=== PATIENT | female | born 1935 | race Caucasian/White ===

== ENCOUNTER → 2017-05-13 11:28 | Outpatient (CLI) | payer MEDICARE, OTHER, SELFPAY ==
[2016-10-02 08:11] VITALS: BMI 32.3
[2016-10-02 09:28] VITALS: BP 158/74
[2017-05-13 13:20] LABS: Absolute Neutrophil Count 1.3 X10^3/uL (2.0-7.7); Basophil# 0.03 X10^3/uL; Basophil% 1.3 % (0-1); Eosinophil# 0.01 X10^3/uL; Eosinophils% 0.4 % (0-5); Hematocrit 41.9 % (37-47); Hemoglobin 14.1 g/dl (12.0-15.0); Mean Corp Hgb Conc 33.7 g/gl (32-36); Mean Corpuscular Hgb 32.3 pg (27.0-32.0); Mean Corpuscular Volume 95.9 fL (81-99); Mean Platelet Vol. 9.4 fl (6.2-12.0); Monocyte% 20.8 % (0-10); Neutrophil # 1.26 X10^3/uL (2.7-7.7); Neutrophil % 52.5 % (47-70); Platelet Count 206 K/mm3 (150-450); RBC Distribution Width CV 14.1 % (11.6-14.6); RBC Distribution Width SD 47.1 fl (35.1-43.9); Red Blood Count 4.37 M/mm3 (4.2-5.4); White Blood Count 2.4 K/mm3 (4.4-11.0)
[2017-05-13 13:21] LABS: Differential Indicated SCAN CRITERIA MET; POSITIVE COUNT NO; POSITIVE DIFFERENTIAL YES; POSITIVE MORPHOLOGY NO
[2017-05-13 13:33] LABS: ALB/GLOB Ratio 0.9 RATIO (0.9-2.4); AST(SGOT) 27 U/L (15-37); Alanine Aminotransfer ALT/SGPT 36 U/L (13-56); Albumin, Serum 3.4 g/dL (3.2-5.0); Alkaline Phosphatase 82 U/L (45-117); Anion Gap 6 (5-15); BUN 11 mg/dL (7-18); BUN/Creat Ratio 15.6 RATIO (10-20); Calcium,Total 8.2 mg/dL (8.5-10.1); Chloride 95 mmol/L (98-107); EST Glomerular Filtration Rate 85 mL/min (>60); Est Glom Filt Rate - Afr Amer 102 mL/min (>60); Globulin 3.7 g/dL (2.2-4.2); Glucose 128 mg/dL (74-106); Potassium 3.8 mmol/L (3.5-5.1); Protein, Total 7.1 g/dL (6.4-8.2); Sodium Level 132 mmol/L (136-145)
[2017-05-14 14:50] LABS: Pathologist Review Reviewed
== END ==
PROVIDERS: Family Provider Family Medicine; PCP Family Medicine; Visit Provider Internal Medicine Rheumatology
DX: M06.4 Inflammatory polyarthropathy (principal); Z79.899 Other long term (current) drug therapy; M79.7 Fibromyalgia; M15.9 Polyosteoarthritis, unspecified; M17.0 Bilateral primary osteoarthritis of knee; M16.0 Bilateral primary osteoarthritis of hip; I10 Essential (primary) hypertension; E78.5 Hyperlipidemia, unspecified
CPT/HCPCS: 36415; 80053; 85025

== ENCOUNTER → 2017-06-13 11:02 | Outpatient (CLI) | payer MEDICARE, OTHER, SELFPAY ==
[2017-06-13 12:06] LABS: Absolute Lymphocyte Count 1.38 X10^3/ul (0.83-4.51); Absolute Neutrophil Count 2.5 X10^3/uL (2.0-7.7); Basophil# 0.03 X10^3/uL; Basophil% 0.7 % (0-1); Eosinophils% 2.2 % (0-5); Hematocrit 43.1 % (37-47); Hemoglobin 14.2 g/dl (12.0-15.0); Lymphocyte # 1.38 X10^3/ul (4.0); Lymphocyte % 30.3 % (19-41); Mean Corp Hgb Conc 32.9 g/gl (32-36); Mean Corpuscular Hgb 31.7 pg (27.0-32.0); Mean Corpuscular Volume 96.2 fL (81-99); Mean Platelet Vol. 9.3 fl (6.2-12.0); Neutrophil # 2.54 X10^3/uL (2.7-7.7); Neutrophil % 55.8 % (47-70); Platelet Count 257 K/mm3 (150-450); RBC Distribution Width CV 13.7 % (11.6-14.6); RBC Distribution Width SD 47.7 fl (35.1-43.9); Red Blood Count 4.48 M/mm3 (4.2-5.4); White Blood Count 4.6 K/mm3 (4.4-11.0)
[2017-06-13 12:07] LABS: POSITIVE COUNT NO; POSITIVE DIFFERENTIAL NO; POSITIVE MORPHOLOGY NO
== END ==
PROVIDERS: Family Provider Family Medicine; PCP Family Medicine; Visit Provider Family Medicine
DX: D72.819 Decreased white blood cell count, unspecified (principal); M06.4 Inflammatory polyarthropathy; Z79.899 Other long term (current) drug therapy; M79.7 Fibromyalgia; M15.9 Polyosteoarthritis, unspecified; M17.0 Bilateral primary osteoarthritis of knee; M16.0 Bilateral primary osteoarthritis of hip; I10 Essential (primary) hypertension; E78.5 Hyperlipidemia, unspecified
CPT/HCPCS: 36415; 85025

== ENCOUNTER → 2017-08-14 12:51 | Outpatient (CLI) | payer MEDICARE, OTHER, SELFPAY ==
[2017-08-14 14:14] LABS: Absolute Lymphocyte Count 1.71 X10^3/ul (0.83-4.51); Absolute Neutrophil Count 4.1 X10^3/uL (2.0-7.7); Basophil# 0.05 X10^3/uL; Basophil% 0.8 % (0-1); Eosinophil# 0.09 X10^3/uL; Eosinophils% 1.4 % (0-5); Hematocrit 41.2 % (37-47); Lymphocyte # 1.71 X10^3/ul (4.0); Lymphocyte % 25.8 % (19-41); Mean Corpuscular Volume 94.3 fL (81-99); Mean Platelet Vol. 9.3 fl (6.2-12.0); Monocyte# 0.69 X10^3/uL; Monocyte% 10.4 % (0-10); Neutrophil # 4.07 X10^3/uL (2.7-7.7); Neutrophil % 61.4 % (47-70); Platelet Count 262 K/mm3 (150-450); RBC Distribution Width CV 13.9 % (11.6-14.6); RBC Distribution Width SD 45.3 fl (35.1-43.9); Red Blood Count 4.37 M/mm3 (4.2-5.4); White Blood Count 6.6 K/mm3 (4.4-11.0)
[2017-08-14 14:21] LABS: POSITIVE COUNT NO; POSITIVE DIFFERENTIAL NO; POSITIVE MORPHOLOGY NO
[2017-08-14 14:24] LABS: AST(SGOT) 21 U/L (15-37); Alanine Aminotransfer ALT/SGPT 36 U/L (13-56); Albumin, Serum 3.4 g/dL (3.2-5.0); Alkaline Phosphatase 80 U/L (45-117); Anion Gap 7 (5-15); BUN 18 mg/dL (7-18); BUN/Creat Ratio 25.5 RATIO (10-20); Chloride 101 mmol/L (98-107); EST Glomerular Filtration Rate 84 mL/min (>60); Est Glom Filt Rate - Afr Amer 102 mL/min (>60); Globulin 3.5 g/dL (2.2-4.2); Glucose 125 mg/dL (74-106); Potassium 4.4 mmol/L (3.5-5.1); Protein, Total 6.9 g/dL (6.4-8.2); Sodium Level 137 mmol/L (136-145)
== END ==
PROVIDERS: Family Provider Family Medicine; PCP Family Medicine; Visit Provider Internal Medicine Rheumatology
DX: M06.4 Inflammatory polyarthropathy (principal); Z79.899 Other long term (current) drug therapy; M79.7 Fibromyalgia; M15.9 Polyosteoarthritis, unspecified; M17.0 Bilateral primary osteoarthritis of knee; M16.0 Bilateral primary osteoarthritis of hip; I10 Essential (primary) hypertension; E78.5 Hyperlipidemia, unspecified
CPT/HCPCS: 36415; 80053; 85025

== ENCOUNTER → 2017-10-29 13:40 | Outpatient (CLI) | payer MEDICARE, OTHER, SELFPAY ==
[2017-10-29 15:21] LABS: Absolute Lymphocyte Count 1.44 X10^3/ul (0.83-4.51); Basophil# 0.04 X10^3/uL; Basophil% 0.8 % (0-1); Eosinophil# 0.05 X10^3/uL; Hematocrit 41.9 % (37-47); Hemoglobin 14.6 g/dl (12.0-15.0); Lymphocyte # 1.44 X10^3/ul (4.0); Mean Corp Hgb Conc 34.8 g/gl (32-36); Mean Corpuscular Hgb 33.5 pg (27.0-32.0); Mean Corpuscular Volume 96.1 fL (81-99); Mean Platelet Vol. 9.2 fl (6.2-12.0); Monocyte# 0.66 X10^3/uL; Monocyte% 12.8 % (0-10); Neutrophil # 2.95 X10^3/uL (2.7-7.7); Neutrophil % 57.4 % (47-70); POSITIVE COUNT NO; POSITIVE DIFFERENTIAL NO; POSITIVE MORPHOLOGY NO; Platelet Count 282 K/mm3 (150-450); RBC Distribution Width CV 13.4 % (11.6-14.6); RBC Distribution Width SD 45.7 fl (35.1-43.9); Red Blood Count 4.36 M/mm3 (4.2-5.4); White Blood Count 5.1 K/mm3 (4.4-11.0)
[2017-10-29 15:43] LABS: ALB/GLOB Ratio 0.9 RATIO (0.9-2.4); AST(SGOT) 31 U/L (15-37); Alanine Aminotransfer ALT/SGPT 38 U/L (13-56); Albumin, Serum 3.5 g/dL (3.2-5.0); Alkaline Phosphatase 72 U/L (45-117); Anion Gap 8 (5-15); BUN 10 mg/dL (7-18); BUN/Creat Ratio 12.9 RATIO (10-20); Calcium,Total 9.1 mg/dL (8.5-10.1); Chloride 97 mmol/L (98-107); Creatinine, Serum 0.77 mg/dL (0.55-1.02); EST Glomerular Filtration Rate 76 mL/min (>60); Est Glom Filt Rate - Afr Amer 92 mL/min (>60); Globulin 3.7 g/dL (2.2-4.2); Glucose 87 mg/dL (74-106); Potassium 4.6 mmol/L (3.5-5.1); Protein, Total 7.2 g/dL (6.4-8.2); Sodium Level 134 mmol/L (136-145)
== END ==
PROVIDERS: Family Provider Family Medicine; PCP Family Medicine; Visit Provider Internal Medicine Rheumatology
DX: M06.4 Inflammatory polyarthropathy (principal); Z79.899 Other long term (current) drug therapy; M79.7 Fibromyalgia; M15.9 Polyosteoarthritis, unspecified; M17.0 Bilateral primary osteoarthritis of knee; M16.0 Bilateral primary osteoarthritis of hip; I10 Essential (primary) hypertension; E78.5 Hyperlipidemia, unspecified
CPT/HCPCS: 36415; 80053; 85025

== ENCOUNTER → 2018-01-21 13:42 | Outpatient (CLI) | payer MEDICARE, OTHER, SELFPAY ==
[2018-01-21 15:31] LABS: Absolute Lymphocyte Count 1.47 X10^3/ul (0.83-4.51); Absolute Neutrophil Count 2.4 X10^3/uL (2.0-7.7); Basophil# 0.04 X10^3/uL; Basophil% 0.8 % (0-1); Eosinophil# 0.08 X10^3/uL; Eosinophils% 1.7 % (0-5); Hematocrit 42.2 % (37-47); Hemoglobin 14.8 g/dl (12.0-15.0); Lymphocyte # 1.47 X10^3/ul (4.0); Lymphocyte % 30.8 % (19-41); Mean Corp Hgb Conc 35.1 g/gl (32-36); Mean Corpuscular Hgb 33.6 pg (27.0-32.0); Mean Corpuscular Volume 95.9 fL (81-99); Mean Platelet Vol. 9.2 fl (6.2-12.0); Monocyte% 16.7 % (0-10); Neutrophil # 2.38 X10^3/uL (2.7-7.7); Neutrophil % 49.8 % (47-70); Platelet Count 273 K/mm3 (150-450); RBC Distribution Width CV 13.2 % (11.6-14.6); RBC Distribution Width SD 44.6 fl (35.1-43.9); White Blood Count 4.8 K/mm3 (4.4-11.0)
[2018-01-21 15:32] LABS: POSITIVE COUNT NO; POSITIVE DIFFERENTIAL NO; POSITIVE MORPHOLOGY NO
[2018-01-21 15:40] LABS: ALB/GLOB Ratio 0.9 RATIO (0.9-2.4); AST(SGOT) 27 U/L (15-37); Alanine Aminotransfer ALT/SGPT 41 U/L (13-56); Albumin, Serum 3.6 g/dL (3.2-5.0); Alkaline Phosphatase 75 U/L (45-117); Anion Gap 9 (5-15); BUN 12 mg/dL (7-18); Calcium,Total 9.2 mg/dL (8.5-10.1); Chloride 97 mmol/L (98-107); Creatinine, Serum 0.71 mg/dL (0.55-1.02); EST Glomerular Filtration Rate 84 mL/min (>60); Est Glom Filt Rate - Afr Amer 102 mL/min (>60); Globulin 3.8 g/dL (2.2-4.2); Glucose 73 mg/dL (74-106); Potassium 4.6 mmol/L (3.5-5.1); Protein, Total 7.4 g/dL (6.4-8.2); Sodium Level 133 mmol/L (136-145)
== END ==
PROVIDERS: Family Provider Family Medicine; PCP Family Medicine; Referring Provider Internal Medicine Rheumatology; Visit Provider Internal Medicine Rheumatology
DX: M06.4 Inflammatory polyarthropathy (principal); Z79.899 Other long term (current) drug therapy; M79.7 Fibromyalgia; M15.9 Polyosteoarthritis, unspecified; M17.0 Bilateral primary osteoarthritis of knee; M16.0 Bilateral primary osteoarthritis of hip; I10 Essential (primary) hypertension; E78.5 Hyperlipidemia, unspecified
CPT/HCPCS: 36415; 80053; 85025

== ENCOUNTER → 2018-03-06 09:52 | Outpatient (CLI) | payer MEDICARE, OTHER, SELFPAY ==
[2018-03-06 12:37] LABS: Absolute Lymphocyte Count 1.13 X10^3/ul (0.83-4.51); Basophil# 0.06 X10^3/uL; Basophil% 1.6 % (0-1); Eosinophil# 0.07 X10^3/uL; Eosinophils% 1.9 % (0-5); Hematocrit 41.6 % (37-47); Hemoglobin 13.9 g/dl (12.0-15.0); Lymphocyte # 1.13 X10^3/ul (4.0); Lymphocyte % 30.1 % (19-41); Mean Corp Hgb Conc 33.4 g/gl (32-36); Mean Corpuscular Hgb 32.9 pg (27.0-32.0); Mean Corpuscular Volume 98.6 fL (81-99); Mean Platelet Vol. 9.3 fl (6.2-12.0); Monocyte% 13.3 % (0-10); Neutrophil % 53.1 % (47-70); Platelet Count 258 K/mm3 (150-450); RBC Distribution Width CV 13.6 % (11.6-14.6); RBC Distribution Width SD 47.8 fl (35.1-43.9); Red Blood Count 4.22 M/mm3 (4.2-5.4); White Blood Count 3.8 K/mm3 (4.4-11.0)
[2018-03-06 12:38] LABS: POSITIVE COUNT NO; POSITIVE DIFFERENTIAL NO; POSITIVE MORPHOLOGY NO
[2018-03-06 13:18] LABS: AST(SGOT) 19 U/L (15-37); Alanine Aminotransfer ALT/SGPT 28 U/L (13-56); Albumin, Serum 3.3 g/dL (3.2-5.0); Alkaline Phosphatase 69 U/L (45-117); Anion Gap 9 (5-15); BUN 11 mg/dL (7-18); BUN/Creat Ratio 13.6 RATIO (10-20); Calcium,Total 8.6 mg/dL (8.5-10.1); Chloride 99 mmol/L (98-107); Creatinine, Serum 0.81 mg/dL (0.55-1.02); EST Glomerular Filtration Rate 72 mL/min (>60); Est Glom Filt Rate - Afr Amer 87 mL/min (>60); Globulin 3.4 g/dL (2.2-4.2); Glucose 120 mg/dL (74-106); Potassium 4.3 mmol/L (3.5-5.1); Protein, Total 6.7 g/dL (6.4-8.2); Sodium Level 136 mmol/L (136-145)
--- OUTSIDE RECORDS SUMMARY | 2018-05-01 11:45 | XMS RPT_ITS ---
:1935 Author Organization OHIP Care Team Providers Name Role Phone Malys, Malu Attending Unavailable Malys, Malu Primary Care Unavailable Vellanki, Rama Attending Unavailable Vellanki, Rama Referring Unavailable Malys, Malu Primary Care Unavailable Malys, Malu Attending Unavailable Malys, Malu Primary Care Unavailable Malys, Malu Referring Unavailable Vellanki, Rama Consulting Unavailable Vellanki, Rama Attending Unavailable Vellanki, Rama Referring Unavailable Malys, Malu Primary Care Unavailable Vellanki, Rama Attending Unavailable Vellanki, Rama Referring Unavailable Malys, Malu Primary Care Unavailable Vellanki, Rama Attending Unavailable Vellanki, Rama Referring Unavailable Malys, Malu Primary Care Unavailable Vellanki, Rama Attending Unavailable Vellanki, Rama Referring Unavailable Malys, Malu Primary Care Unavailable PROBLEMS PROBLEMS DATE TYPE CONDITION / CODE ATTENDING STATUS SOURCE 03/06/2018 Unknown 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 / Community M06.4(ICD-10) Hospital Repository 03/06/2018 Unknown Z79.899 - Other long Rama Pereira Active [facility] term (current) drug Community therapy / Hospital Z79.899(ICD-10) Repository 03/06/2018 Unknown 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, Community unspecified / Hospital M15.9(ICD-10) Repository 03/06/2018 Unknown 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, 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 / M17.0(ICD-10) Repository 03/06/2018 Unknown 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, 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 / M16.0(ICD-10) Repository 03/06/2018 Unknown I10 - Essential Velsummer Rama Active [facility] (primary) Community hypertension / Hospital I10(ICD-10) Repository 03/06/2018 Unknown E78.5 - Velsummer Rama Active [facility] Hyperlipidemia, Community unspecified / Hospital E78.5(ICD-10) Repository 01/21/2018 Unknown M79.7 - Fibromyalgia Randall Rama Active [facility] / M79.7(ICD-10) [facility] Repository 06/13/2017 Unknown D72.819 - Decreased Malys, Malu Active [facility] white blood cell Community count, unspecified / Hospital D72.819(ICD-10) Repository 03/28/2017 Unknown R63.5 - Abnormal Malys, Malu Active [facility] weight gain / Community R63.5(ICD-10) Hospital Repository 03/28/2017 Unknown R63.1 - Polydipsia / Malys, Malu Active [facility] R63.1(ICD-10) [facility] Repository PROCEDURES PROCEDURES No Procedure Records FoundRESULTS RESULTS CBC W/DIFF, AUTOMATED Collected: 03/06/2018 Status: F Source: [facility] 9:59 AM [facility] REPOSITORY TYPE CODE TESTS RESULT OUT OF RANGE REFERENCE UNITS LAB L100.1000 4.4-11.0 K/mm3 Low WBC 3.8 LAB L100.1200 4.2-5.4 M/mm3 Normal RBC 4.22 LAB L100.1300 12.0-15.0 g/dl Normal HGB 13.9 LAB L100.1400 37-47 % Normal HCT 41.6 LAB L100.1500 81-99 fL Normal MCV 98.6 LAB L100.1600 27.0-32.0 pg High MCH 32.9 LAB L100.1700 32-36 g/gl Normal MCHC 33.4 LAB L100.1810 11.6-14.6 % Normal RDW CV 13.6 LAB L100.1820 35.1-43.9 fl High RDW SD 47.8 LAB L100.1900 150-450 K/mm3 Normal PLT 258 LAB L100.2000 6.2-12.0 fl Normal MPV 9.3 LAB L100.2100 47-70 % Normal NEUT% 53.1 LAB L100.2200 19-41 % Normal LY% 30.1 LAB L100.2300 0-10 % High MONO% 13.3 LAB L100.2400 0-5 % Normal EO% 1.9 LAB L100.2500 0-1 % High BASO% 1.6 LAB L100.2550 0.0-0.9 % Normal IM GRAN % 0.000 Result Comment: IG% - Immature Granulocytes (promyelocytes, myelocytes and metamyelocytes) > 1% indicates that a LEFT SHIFT is Present. LAB L100.2620 2.0-7.7 X10 3/uL Normal Absolute Neut 2.0 LAB L100.2720 0.83-4.51 X10 3/ul Normal Absolute Lymph 1.13 Performed By: #### L100.0100 #### [facility] [address] [place], [place], [address] COMPREHENSIVE METABOLIC Collected: 03/06/2018 Status: F Source: [facility] 9:59 AM [facility] REPOSITORY TYPE CODE TESTS RESULT OUT OF RANGE REFERENCE UNITS LAB L501.0100 74-106 mg/dL High GLU 120 Result Comment: Fasting Glucose result from 100 to 125 mg/dL suggests IMPAIRED HOMEOSTASIS per A.D.A. criteria. Please note revised GLUCOSE reference range effective 2017. LAB L501.1000 7-18 mg/dL Normal BUN 11 LAB L501.1100 0.55-1.02 mg/dL Normal CREAT,SERUM 0.81 Result Comment: The validity of the calculated GFR AND GFRAA in patients over 70 years has not been determined. Clinical correlation is essential. LAB L501.1110 >60 mL/min Normal EST GFR 72 Result Comment: Non- GFR Calc LAB L501.1115 >60 mL/min Normal EST GFR - AA 87 Result Comment: GFR Calc LAB L501.1300 10-20 RATIO Normal BUN/CRE 13.6 LAB L501.1500 6.4-8.2 g/dL T Normal PROT 6.7 LAB L501.1800 3.2-5.0 g/dL Normal ALB 3.3 LAB L501.1950 2.2-4.2 g/dL Normal GLOB 3.4 LAB L501.2000 0.9-2.4 RATIO Normal A/G 1.0 LAB L501.2200 8.5-10.1 mg/dL CA Normal 8.6 LAB L501.4100 15-37 U/L Normal AST 19 LAB L501.4305 45-117 U/L Normal ALK P 69 LAB L501.4405 13-56 U/L Normal ALT 28 LAB L501.4600 0.20-1.00 mg/dL T Normal BILI 0.50 LAB L501.5300 136-145 mmol/L NA Normal 136 LAB L501.5600 3.5-5.1 mmol/L K Normal 4.3 LAB L501.5900 98-107 mmol/L CL Normal 99 LAB L501.6100 21.0-32.0 mmol/L Normal CO2 28.0 LAB L501.6200 5-15 Normal GAP 9 Performed By: #### L500.4050 #### [facility] [address] [place], [address] CBC W/DIFF, AUTOMATED Collected: 01/21/2018 Status: F Source: [place] 1:46 PM [facility] REPOSITORY TYPE CODE TESTS RESULT OUT OF RANGE REFERENCE UNITS LAB L100.1000 4.4-11.0 K/mm3 Normal WBC 4.8 LAB L100.1200 4.2-5.4 M/mm3 Normal RBC 4.40 LAB L100.1300 12.0-15.0 g/dl Normal HGB 14.8 LAB L100.1400 37-47 % Normal HCT 42.2 LAB L100.1500 81-99 fL Normal MCV 95.9 LAB L100.1600 27.0-32.0 pg High MCH 33.6 LAB L100.1700 32-36 g/gl Normal MCHC 35.1 LAB L100.1810 11.6-14.6 % Normal RDW CV 13.2 LAB L100.1820 35.1-43.9 fl High RDW SD 44.6 LAB L100.1900 150-450 K/mm3 Normal PLT 273 LAB L100.2000 6.2-12.0 fl Normal MPV 9.2 LAB L100.2100 47-70 % Normal NEUT% 49.8 LAB L100.2200 19-41 % Normal LY% 30.8 LAB L100.2300 0-10 % High MONO% 16.7 LAB L100.2400 0-5 % Normal EO% 1.7 LAB L100.2500 0-1 % Normal BASO% 0.8 LAB L100.2550 0.0-0.9 % Normal IM GRAN % 0.200 Result Comment: IG% - Immature Granulocytes (promyelocytes, myelocytes and metamyelocytes) > 1% indicates that a LEFT SHIFT is Present. LAB L100.2620 2.0-7.7 X10 3/uL Normal Absolute Neut 2.4 LAB L100.2720 0.83-4.51 X10 3/ul Normal Absolute Lymph 1.47 Performed By: #### L100.0100 #### [facility] [address] [facility] [place], [address] COMPREHENSIVE METABOLIC Collected: 01/21/2018 Status: F Source: [facility] 1:46 PM [facility] REPOSITORY TYPE CODE TESTS RESULT OUT OF RANGE REFERENCE UNITS LAB L501.0100 74-106 mg/dL Low GLU 73 Result Comment: Please note revised GLUCOSE reference range effective 2017. LAB L501.1000 7-18 mg/dL Normal BUN 12 LAB L501.1100 0.55-1.02 mg/dL Normal CREAT,SERUM 0.71 Result Comment: The validity of the calculated GFR AND GFRAA in patients over 70 years has not been determined. Clinical correlation is essential. LAB L501.1110 >60 mL/min Normal EST GFR 84 Result Comment: Non- GFR Calc LAB L501.1115 >60 mL/min Normal EST GFR - AA 102 Result Comment: GFR Calc LAB L501.1300 10-20 RATIO Normal BUN/CRE 17.0 LAB L501.1500 6.4-8.2 g/dL T Normal PROT 7.4 LAB L501.1800 3.2-5.0 g/dL Normal ALB 3.6 LAB L501.1950 2.2-4.2 g/dL Normal GLOB 3.8 LAB L501.2000 0.9-2.4 RATIO Normal A/G 0.9 LAB L501.2200 8.5-10.1 mg/dL CA Normal 9.2 LAB L501.4100 15-37 U/L Normal AST 27 LAB L501.4305 45-117 U/L Normal ALK P 75 LAB L501.4405 13-56 U/L Normal ALT 41 LAB L501.4600 0.20-1.00 mg/dL T Normal BILI 0.40 LAB L501.5300 136-145 mmol/L Low NA 133 LAB L501.5600 3.5-5.1 mmol/L K Normal 4.6 LAB L501.5900 98-107 mmol/L Low CL 97 LAB L501.6100 21.0-32.0 mmol/L Normal CO2 27.0 LAB L501.6200 5-15 Normal GAP 9 Performed By: #### L500.4050 #### [facility] [place], [address] CBC W/DIFF, AUTOMATED Collected: 10/29/2017 Status: F Source: [place] 1:44 PM [facility] REPOSITORY TYPE CODE TESTS RESULT OUT OF RANGE REFERENCE UNITS LAB L100.1000 4.4-11.0 K/mm3 Normal WBC 5.1 LAB L100.1200 4.2-5.4 M/mm3 Normal RBC 4.36 LAB L100.1300 12.0-15.0 g/dl Normal HGB 14.6 LAB L100.1400 37-47 % Normal HCT 41.9 LAB L100.1500 81-99 fL Normal MCV 96.1 LAB L100.1600 27.0-32.0 pg High MCH 33.5 LAB L100.1700 32-36 g/gl Normal MCHC 34.8 LAB L100.1810 11.6-14.6 % Normal RDW CV 13.4 LAB L100.1820 35.1-43.9 fl High RDW SD 45.7 LAB L100.1900 150-450 K/mm3 Normal PLT 282 LAB L100.2000 6.2-12.0 fl Normal MPV 9.2 LAB L100.2100 47-70 % Normal NEUT% 57.4 LAB L100.2200 19-41 % Normal LY% 28.0 LAB L100.2300 0-10 % High MONO% 12.8 LAB L100.2400 0-5 % Normal EO% 1.0 LAB L100.2500 0-1 % Normal BASO% 0.8 LAB L100.2550 0.0-0.9 % Normal IM GRAN % 0.000 Result Comment: IG% - Immature Granulocytes (promyelocytes, myelocytes and metamyelocytes) > 1% indicates that a LEFT SHIFT is Present. LAB L100.2620 2.0-7.7 X10 3/uL Normal Absolute Neut 3.0 LAB L100.2720 0.83-4.51 X10 3/ul Normal Absolute Lymph 1.44 Performed By: #### L100.0100 #### [facility] [address] [place], [place], [address] COMPREHENSIVE METABOLIC Collected: 10/29/2017 Status: F Source: [facility] 1:44 PM [facility] REPOSITORY TYPE CODE TESTS RESULT OUT OF RANGE REFERENCE UNITS LAB L501.0100 74-106 mg/dL Normal GLU 87 Result Comment: Please note revised GLUCOSE reference range effective 2017. LAB L501.1000 7-18 mg/dL Normal BUN 10 LAB L501.1100 0.55-1.02 mg/dL Normal CREAT,SERUM 0.77 Result Comment: The validity of the calculated GFR AND GFRAA in patients over 70 years has not been determined. Clinical correlation is essential. LAB L501.1110 >60 mL/min Normal EST GFR 76 Result Comment: Non- GFR Calc LAB L501.1115 >60 mL/min Normal EST GFR - AA 92 Result Comment: GFR Calc LAB L501.1300 10-20 RATIO Normal BUN/CRE 12.9 LAB L501.1500 6.4-8.2 g/dL T Normal PROT 7.2 LAB L501.1800 3.2-5.0 g/dL Normal ALB 3.5 LAB L501.1950 2.2-4.2 g/dL Normal GLOB 3.7 LAB L501.2000 0.9-2.4 RATIO Normal A/G 0.9 LAB L501.2200 8.5-10.1 mg/dL CA Normal 9.1 LAB L501.4100 15-37 U/L Normal AST 31 LAB L501.4305 45-117 U/L Normal ALK P 72 LAB L501.4405 13-56 U/L Normal ALT 38 LAB L501.4600 0.20-1.00 mg/dL T Normal BILI 0.60 LAB L501.5300 136-145 mmol/L Low NA 134 LAB L501.5600 3.5-5.1 mmol/L K Normal 4.6 LAB L501.5900 98-107 mmol/L Low CL 97 LAB L501.6100 21.0-32.0 mmol/L Normal CO2 29.0 LAB L501.6200 5-15 Normal GAP 8 Performed By: #### L500.4050 #### [facility] [address] [facility]. [place], [place], [address] CBC W/DIFF, AUTOMATED Collected: 08/14/2017 Status: F Source: [place] 12:59 PM [facility] REPOSITORY TYPE CODE TESTS RESULT OUT OF RANGE REFERENCE UNITS LAB L100.1000 4.4-11.0 K/mm3 Normal WBC 6.6 LAB L100.1200 4.2-5.4 M/mm3 Normal RBC 4.37 LAB L100.1300 12.0-15.0 g/dl Normal HGB 14.0 LAB L100.1400 37-47 % Normal HCT 41.2 LAB L100.1500 81-99 fL Normal MCV 94.3 LAB L100.1600 27.0-32.0 pg Normal MCH 32.0 LAB L100.1700 32-36 g/gl Normal MCHC 34.0 LAB L100.1810 11.6-14.6 % Normal RDW CV 13.9 LAB L100.1820 35.1-43.9 fl High RDW SD 45.3 LAB L100.1900 150-450 K/mm3 Normal PLT 262 LAB L100.2000 6.2-12.0 fl Normal MPV 9.3 LAB L100.2100 47-70 % Normal NEUT% 61.4 LAB L100.2200 19-41 % Normal LY% 25.8 LAB L100.2300 0-10 % High MONO% 10.4 LAB L100.2400 0-5 % Normal EO% 1.4 LAB L100.2500 0-1 % Normal BASO% 0.8 LAB L100.2550 0.0-0.9 % Normal IM GRAN % 0.200 Result Comment: IG% - Immature Granulocytes (promyelocytes, myelocytes and metamyelocytes) > 1% indicates that a LEFT SHIFT is Present. LAB L100.2620 2.0-7.7 X10 3/uL Normal Absolute Neut 4.1 LAB L100.2720 0.83-4.51 X10 3/ul Normal Absolute Lymph 1.71 Performed By: #### L100.0100 #### [facility] [address] [place], [address] COMPREHENSIVE METABOLIC Collected: 08/14/2017 Status: F Source: [facility] 12:59 PM [facility] REPOSITORY TYPE CODE TESTS RESULT OUT OF RANGE REFERENCE UNITS LAB L501.0100 74-106 mg/dL High GLU 125 Result Comment: Fasting Glucose result from 100 to 125 mg/dL suggests IMPAIRED HOMEOSTASIS per A.D.A. criteria. Please note revised GLUCOSE reference range effective 2017. LAB L501.1000 7-18 mg/dL Normal BUN 18 LAB L501.1100 0.55-1.02 mg/dL Normal CREAT,SERUM 0.70 Result Comment: The validity of the calculated GFR AND GFRAA in patients over 70 years has not been determined. Clinical correlation is essential. LAB L501.1110 >60 mL/min Normal EST GFR 84 Result Comment: Non- GFR Calc LAB L501.1115 >60 mL/min Normal EST GFR - AA 102 Result Comment: GFR Calc LAB L501.1300 10-20 RATIO High BUN/CRE 25.5 LAB L501.1500 6.4-8.2 g/dL T Normal PROT 6.9 LAB L501.1800 3.2-5.0 g/dL Normal ALB 3.4 LAB L501.1950 2.2-4.2 g/dL Normal GLOB 3.5 LAB L501.2000 0.9-2.4 RATIO Normal A/G 1.0 LAB L501.2200 8.5-10.1 mg/dL CA Normal 9.0 LAB L501.4100 15-37 U/L Normal AST 21 LAB L501.4305 45-117 U/L Normal ALK P 80 LAB L501.4405 13-56 U/L Normal ALT 36 LAB L501.4600 0.20-1.00 mg/dL T Normal BILI 0.30 LAB L501.5300 136-145 mmol/L NA Normal 137 LAB L501.5600 3.5-5.1 mmol/L K Normal 4.4 LAB L501.5900 98-107 mmol/L CL Normal 101 LAB L501.6100 21.0-32.0 mmol/L Normal CO2 29.0 LAB L501.6200 5-15 Normal GAP 7 Performed By: #### L500.4050 #### [facility] [address] [facility] [place], [address] CBC W/DIFF, AUTOMATED Collected: 06/13/2017 Status: F Source: [place] 11:09 AM [facility] REPOSITORY TYPE CODE TESTS RESULT OUT OF RANGE REFERENCE UNITS LAB L100.1000 4.4-11.0 K/mm3 Normal WBC 4.6 LAB L100.1200 4.2-5.4 M/mm3 Normal RBC 4.48 LAB L100.1300 12.0-15.0 g/dl Normal HGB 14.2 LAB L100.1400 37-47 % Normal HCT 43.1 LAB L100.1500 81-99 fL Normal MCV 96.2 LAB L100.1600 27.0-32.0 pg Normal MCH 31.7 LAB L100.1700 32-36 g/gl Normal MCHC 32.9 LAB L100.1810 11.6-14.6 % Normal RDW CV 13.7 LAB L100.1820 35.1-43.9 fl High RDW SD 47.7 LAB L100.1900 150-450 K/mm3 Normal PLT 257 LAB L100.2000 6.2-12.0 fl Normal MPV 9.3 LAB L100.2100 47-70 % Normal NEUT% 55.8 LAB L100.2200 19-41 % Normal LY% 30.3 LAB L100.2300 0-10 % High MONO% 11.0 LAB L100.2400 0-5 % Normal EO% 2.2 LAB L100.2500 0-1 % Normal BASO% 0.7 LAB L100.2550 0.0-0.9 % Normal IM GRAN % 0.000 Result Comment: IG% - Immature Granulocytes (promyelocytes, myelocytes and metamyelocytes) > 1% indicates that a LEFT SHIFT is Present. LAB L100.2620 2.0-7.7 X10 3/uL Normal Absolute Neut 2.5 LAB L100.2720 0.83-4.51 X10 3/ul Normal Absolute Lymph 1.38 Performed By: #### L100.0100 #### [facility] [address] [place], [address] CBC W/DIFF, AUTOMATED Collected: 05/13/2017 Status: C Source: [place] 11:37 AM [facility] REPOSITORY TYPE CODE TESTS RESULT OUT OF RANGE REFERENCE UNITS LAB L100.1000 4.4-11.0 K/mm3 Low WBC 2.4 LAB L100.1200 4.2-5.4 M/mm3 Normal RBC 4.37 LAB L100.1300 12.0-15.0 g/dl Normal HGB 14.1 LAB L100.1400 37-47 % Normal HCT 41.9 LAB L100.1500 81-99 fL Normal MCV 95.9 LAB L100.1600 27.0-32.0 pg High MCH 32.3 LAB L100.1700 32-36 g/gl Normal MCHC 33.7 LAB L100.1810 11.6-14.6 % Normal RDW CV 14.1 LAB L100.1820 35.1-43.9 fl High RDW SD 47.1 LAB L100.1900 150-450 K/mm3 Normal PLT 206 LAB L100.2000 6.2-12.0 fl Normal MPV 9.4 LAB L100.2100 47-70 % Normal NEUT% 52.5 LAB L100.2200 19-41 % Normal LY% 25.0 LAB L100.2300 0-10 % High MONO% 20.8 LAB L100.2400 0-5 % Normal EO% 0.4 LAB L100.2500 0-1 % High BASO% 1.3 LAB L100.2550 0.0-0.9 % Normal IM GRAN % 0.000 Result Comment: IG% - Immature Granulocytes (promyelocytes, myelocytes and metamyelocytes) > 1% indicates that a LEFT SHIFT is Present. LAB L100.2620 2.0-7.7 X10 3/uL Low Absolute Neut 1.3 LAB L100.2720 0.83-4.51 X10 3/ul Low Absolute Lymph 0.60 LAB L100.4500 Normal SMEAR COMMENT COMMENT Result Comment: SLIDE SCANNED - LYMPHOPENIA NOTED. LAB L100.9900 Normal Reviewed PATH REV Result Comment: Leukopenia and neutropenia. Clinical correlation necessary. Inocente Zamora M.D. 05/14/17 AMENDED REPORT 05/14/17 1449 PATH REV previously reported as: August jose Performed By: #### L100.0100 #### [facility] [address] [place], [address] COMPREHENSIVE METABOLIC Collected: 05/13/2017 Status: F Source: [facility] 11:37 AM [facility] REPOSITORY TYPE CODE TESTS RESULT OUT OF RANGE REFERENCE UNITS LAB L501.0100 74-106 mg/dL High GLU 128 Result Comment: Fasting Glucose result greater than or equal to 126 mg/dL suggests DIABETES MELLITUS per A.D.A. criteria. LAB L501.1000 7-18 mg/dL Normal BUN 11 LAB L501.1100 0.55-1.02 mg/dL Normal CREAT,SERUM 0.70 Result Comment: The validity of the calculated GFR AND GFRAA in patients over 70 years has not been determined. Clinical correlation is essential. LAB L501.1110 >60 mL/min Normal EST GFR 85 Result Comment: Non- GFR Calc LAB L501.1115 >60 mL/min Normal EST GFR - AA 102 Result Comment: GFR Calc LAB L501.1300 10-20 RATIO Normal BUN/CRE 15.6 LAB L501.1500 6.4-8.2 g/dL T Normal PROT 7.1 LAB L501.1800 3.2-5.0 g/dL Normal ALB 3.4 LAB L501.1950 2.2-4.2 g/dL Normal GLOB 3.7 LAB L501.2000 0.9-2.4 RATIO Normal A/G 0.9 LAB L501.2200 8.5-10.1 mg/dL Low CA 8.2 LAB L501.4100 15-37 U/L Normal AST 27 LAB L501.4305 45-117 U/L Normal ALK P 82 LAB L501.4405 13-56 U/L Normal ALT 36 Result Comment: Please note revised ALT reference range effective 2017. LAB L501.4600 0.20-1.00 mg/dL Normal T BILI 0.40 LAB L501.5300 136-145 mmol/L Low NA 132 LAB L501.5600 3.5-5.1 mmol/L Normal K 3.8 LAB L501.5900 98-107 mmol/L Low CL 95 LAB L501.6100 21.0-32.0 mmol/L Normal CO2 31.0 LAB L501.6200 5-15 Normal GAP 6 Performed By: #### L500.4050 #### [facility] [address] [facility] [place], [address] HEMOGLOBIN A1C Collected: 03/28/2017 Status: F Source: [facility] 11:34 AM [facility] REPOSITORY TYPE CODE TESTS RESULT OUT OF RANGE REFERENCE UNITS LAB L501.9985 4.2-6.3 % Normal HGB A1C 5.5 Performed By: #### L501.9985 #### [facility] [address] [facility] [place], [address] THYROID STIM HORMONE Collected: 03/28/2017 Status: F Source: [facility] (TSH) 11:34 AM [facility] REPOSITORY TYPE CODE TESTS RESULT OUT OF RANGE REFERENCE UNITS LAB L501.9520 0.358-3.74 uIU/mL Normal TSH 1.73 Performed By: #### L501.9520, L506.0400 #### [facility] [address] [place], [address] T4 FREE DIRECT Collected: 03/28/2017 Status: F Source: [facility] 11:34 AM [facility] REPOSITORY TYPE CODE TESTS RESULT OUT OF RANGE REFERENCE UNITS LAB L506.0400 0.76-1.46 ng/dL Normal T4 FREE 1.04 DIRECT Performed By: #### L501.9520, L506.0400 #### [facility] [address] [place], [address] T3 TOTAL - TRIIODOTHYRONINE Collected: 03/28/2017 Status: F Source: [facility] 11:34 AM [facility] REPOSITORY TYPE CODE TESTS RESULT OUT OF RANGE REFERENCE UNITS LAB L501.9186 0.6-1.81 ng/mL Normal T3 Total 1.17 Performed By: #### L501.9186 #### [facility] [address] [place], [address] ALLERGIES ALLERGIES DATE TYPE / CODE NAME / CODE REACTION SEVERITY SOURCE 10/02/2016 Drug hydrocodone Vomiting Unknown Jose Angel Allergy/416 bitartrate/[id number] [facility] [id number][facility] 10/02/2016 Drug oxycodone Vomiting Unknown [facility] Allergy/416 HCl/[id number](RXN [facility] 238003([facility] ED CT) Repository 10/02/2016 Drug morphine/[id number] Vomiting Unknown [facility] Allergy/416 5(RXNORM) [facility] 653304([facility] ED CT) Repository 10/02/2016 Drug acetaminophen/F006 Vomiting Unknown [facility] Allergy/416 937246(RXNORM) [facility] 018291([facility] ED CT) Repository ENCOUNTERS ENCOUNTERS ADMIT/DISCHARGE ACCOUNT ADMITTING ENCOUNTER LOCATION SOURCE NUMBER CLASS 03/06/2018 [id number] Ambulatory Celeste Celeste [address] [facility] ing:LAB Repository 01/21/2018 [id number] Ambulatory Jose Angel Jose Angel [address] [facility] ing:MTLAB Repository 10/29/2017 [id number] Ambulatory Jose Angel Jose Angel [address] [facility] ing:MTLAB Repository 08/14/2017 [id number] Ambulatory Jose Angel Celeste [address] [facility] ing:MTLAB Repository 06/13/2017 [id number] Ambulatory Jose Angel Celeste [address] [facility] ing:LAB.FUTUR Repository E 05/13/2017 [id number] Ambulatory Jose Angel Cel[place] [address] [facility] ing:LAB Repository 03/28/2017 [id number] Ambulatory Celeste Jose Angel [address] [facility] ing:BFHLAB Repository PAYERS PAYERS ENCOUNTER GUARANTOR PAYER SUBSCRIBER SOURCE 03/06/2018 NICHOLAS J Primary NICHOLAS J Jose Angel [id number] Insurance:MEDICARE TROYERDOB: Community [place] PART A BPolicy [place]: [id number] [id number] Repository 96797Odj: (330) Date:2018-03-06 [id number] () 03/06/2018 Secondary NICHOLAS J Celeste Insurance:HUMANA TROYERDOB: [id number] Hospital Number: Repository [id number] Date:4053-10-14NR [address] [id number]: 03/06/2018 Tertiary NOT GIVENUNK Jose Angel Insurance:SELF PAY [facility] Number: Effective Repository Date:2018-03-06 01/21/2018 Nicholas J Primary NICHOLAS J Jose Angel [id number] Insurance:MEDICARE TROYERDOB: Community [place] PART A BPolicy Number: [id number] [place] [id number] Repository [address]Gsy: ([phone]) Date:[phone] () 01/21/2018 Secondary NICHOLAS J Jose Angel Insurance:HUMANA TROYERDOB: [facility]ly [facility] COMMERCIALPolicy [id number] Hospital Number: Repository [id number] Date:0532-10-26[address] [place] [id number]: 01/21/2018 Tertiary NOT GIVENUNK Celeste Insurance:SELF PAY [facility] Number: Effective Repository Date:2018-01-21 10/29/2017 Nicholas J Primary NICHOLAS J Jose Angel [id number] Insurance:MEDICARE TROYERDOB: [facility]ly [facility] [place] PART A BPolicy Number: [id number] [place] [id number] Repository [id number]: [phone] Date:2017-10-29 [phone] () 10/29/2017 Secondary NICHOLAS J Jose Angel Insurance:HUMANA TROYERDOB: Community COMMERCIALPolicy [id number] Hospital Number: Repository [id number] Date:[id number] [id number]: 10/29/2017 Tertiary NOT GIVENUNK Celeste Insurance:SELF PAY [facility] Effective Repository Date:2017-10-29 08/14/2017 Nicholas J Primary NICHOLAS J Celeste [id number] Insurance:MEDICARE TROYERDOB: Community [place] PART A BPolicy Number: [id number] [place], [place] [id number] Repository [id number]: [phone] Date:[phone] () 08/14/2017 Secondary NICHOLAS J Celeste Insurance:HUMANA TROYERDOB: Formerly [facility] [id number] Hospital Number: Repository [id number] Date:[id number] [id number]: 08/14/2017 Tertiary NOT GIVENUNK Celeste Insurance:SELF PAY [facility] Number: Effective Repository Date:2017-08-14 06/13/2017 Nicholas J Primary NICHOLAS J Jose Angel [id number] Insurance:MEDICARE TROYERDOB: [place] PART A BPolicy Number: [id number] [place], [place] [id number] Repository [address]Prn: ([phone]) Date:2017-05-15 [id number] () 06/13/2017 Secondary NICHOLAS J Jose Angel Insurance:HUMANA TROYERDOB: [facility] [id number] Hospital Number: Repository [id number] Date:[id number] [address]EF: 06/13/2017 Tertiary NOT GIVENUNK Celeste Insurance:SELF PAY [facility] Number: Effective Repository Date:2017-05-15 05/13/2017 Nicholas J Primary NICHOLAS J Celeste [id number] Insurance:MEDICARE TROYERDOB: [place] PART A BPolicy Number: [id number] [place], [place] [id number] Repository [address]Zgc: [phone] Date:2017-05-13 [id number] () 05/13/2017 Secondary NICHOLAS J Jose Angel Insurance:HUMANA TROYERDOB: Formerly [facility] COMMERCIALPoly [id number] Hospital Number: Repository [id number] Date:1407-21-09MS [address] [place] [id number]: 05/13/2017 Tertiary NOT GIVENUNK Jose Angel Insurance:SELF PAY [facility] Number: Effective Repository Date:2017-05-13 03/28/2017 Nicholas J Primary NICHOLAS J Celeste [id number] Insurance:MEDICARE TROYERDOB: [facility]ly [facility] [place] PART A BPolicy Number: [id number] [place], [place] [id number] Repository [address]Rqq: [phone]) Date:2017-03-28 [id number] () 03/28/2017 Secondary NICHOLAS J Celeste Insurance:HUMANA TROYERDOB: [facility] [id number] Hospital Number: Repository [id number] Date:[id number] [address] [address]JW: 03/28/2017 Tertiary NOT GIVENUNK Jose Angel Insurance:SELF PAY [facility] Number: Effective Repository Date:2017-03-28
== END ==
PROVIDERS: Family Provider Family Medicine; PCP Family Medicine; Referring Provider Internal Medicine Rheumatology; Visit Provider Internal Medicine Rheumatology
DX: M06.4 Inflammatory polyarthropathy (principal); Z79.899 Other long term (current) drug therapy; M79.7 Fibromyalgia; M15.9 Polyosteoarthritis, unspecified; M17.0 Bilateral primary osteoarthritis of knee; M16.0 Bilateral primary osteoarthritis of hip; I10 Essential (primary) hypertension; E78.5 Hyperlipidemia, unspecified
CPT/HCPCS: 36415; 80053; 85025

== ENCOUNTER → 2018-06-03 13:14 | Outpatient (CLI) | payer MEDICARE, OTHER, SELFPAY ==
[2016-10-02 08:11] VITALS: BMI 32.3
[2018-06-03 13:51] LABS: Absolute Lymphocyte Count 1.81 X10^3/ul (0.83-4.51); Absolute Neutrophil Count 4.3 X10^3/uL (2.0-7.7); Basophil# 0.05 X10^3/uL; Basophil% 0.7 % (0-1); Eosinophil# 0.03 X10^3/uL; Eosinophils% 0.4 % (0-5); Hematocrit 45.3 % (37-47); Hemoglobin 14.9 g/dl (12.0-15.0); Lymphocyte # 1.81 X10^3/ul (4.0); Lymphocyte % 25.9 % (19-41); Mean Corp Hgb Conc 32.9 g/gl (32-36); Mean Corpuscular Hgb 32.7 pg (27.0-32.0); Mean Corpuscular Volume 99.6 fL (81-99); Mean Platelet Vol. 8.9 fl (6.2-12.0); Monocyte% 11.4 % (0-10); Neutrophil # 4.28 X10^3/uL (2.7-7.7); Neutrophil % 61.3 % (47-70); Platelet Count 260 K/mm3 (150-450); RBC Distribution Width CV 13.7 % (11.6-14.6); RBC Distribution Width SD 48.9 fl (35.1-43.9); Red Blood Count 4.55 M/mm3 (4.2-5.4)
[2018-06-03 13:57] LABS: POSITIVE COUNT NO; POSITIVE DIFFERENTIAL NO; POSITIVE MORPHOLOGY NO
[2018-06-03 14:12] LABS: AST(SGOT) 18 U/L (15-37); Alanine Aminotransfer ALT/SGPT 29 U/L (13-56); Albumin, Serum 3.6 g/dL (3.2-5.0); Alkaline Phosphatase 79 U/L (45-117); Anion Gap 7 (5-15); BUN 15 mg/dL (7-18); BUN/Creat Ratio 18.2 RATIO (10-20); Calcium,Total 9.1 mg/dL (8.5-10.1); Chloride 91 mmol/L (98-107); Creatinine, Serum 0.82 mg/dL (0.55-1.02); EST Glomerular Filtration Rate 70 mL/min (>60); Est Glom Filt Rate - Afr Amer 85 mL/min (>60); Globulin 3.7 g/dL (2.2-4.2); Glucose 94 mg/dL (74-106); Potassium 4.6 mmol/L (3.5-5.1); Protein, Total 7.3 g/dL (6.4-8.2); Sodium Level 131 mmol/L (136-145)
== END ==
PROVIDERS: Family Provider Family Medicine; PCP Family Medicine; Referring Provider Internal Medicine Rheumatology; Visit Provider Internal Medicine Rheumatology
DX: M06.4 Inflammatory polyarthropathy (principal); M79.7 Fibromyalgia; M17.0 Bilateral primary osteoarthritis of knee; M16.0 Bilateral primary osteoarthritis of hip; I10 Essential (primary) hypertension; E78.5 Hyperlipidemia, unspecified; Z79.899 Other long term (current) drug therapy
CPT/HCPCS: 36415; 80053; 85025

== ENCOUNTER → 2018-09-02 | Outpatient (CLI) | payer MEDICARE, OTHER, SELFPAY ==
[2016-10-02 08:11] VITALS: BMI 32.3
[2018-09-02 12:40] LABS: Absolute Lymphocyte Count 1.13 X10^3/ul (0.83-4.51); Absolute Neutrophil Count 2.3 X10^3/uL (2.0-7.7); Basophil# 0.05 X10^3/uL; Basophil% 1.3 % (0-1); Eosinophil# 0.06 X10^3/uL; Eosinophils% 1.5 % (0-5); Hematocrit 41.7 % (37-47); Hemoglobin 14.1 g/dl (12.0-15.0); Lymphocyte # 1.13 X10^3/ul (4.0); Lymphocyte % 28.3 % (19-41); Mean Corp Hgb Conc 33.8 g/gl (32-36); Mean Corpuscular Hgb 32.5 pg (27.0-32.0); Mean Corpuscular Volume 96.1 fL (81-99); Mean Platelet Vol. 9.3 fl (6.2-12.0); Monocyte% 12.5 % (0-10); Neutrophil # 2.26 X10^3/uL (2.7-7.7); Neutrophil % 56.4 % (47-70); Platelet Count 255 K/mm3 (150-450); RBC Distribution Width CV 13.3 % (11.6-14.6); RBC Distribution Width SD 44.8 fl (35.1-43.9); Red Blood Count 4.34 M/mm3 (4.2-5.4)
[2018-09-02 12:45] LABS: POSITIVE COUNT NO; POSITIVE DIFFERENTIAL NO; POSITIVE MORPHOLOGY NO
[2018-09-02 12:53] LABS: ALB/GLOB Ratio 0.9 RATIO (0.9-2.4); AST(SGOT) 18 U/L (15-37); Alanine Aminotransfer ALT/SGPT 28 U/L (13-56); Albumin, Serum 3.2 g/dL (3.2-5.0); Alkaline Phosphatase 63 U/L (45-117); Anion Gap 8 (5-15); BUN 12 mg/dL (7-18); BUN/Creat Ratio 14.3 RATIO (10-20); Calcium,Total 8.8 mg/dL (8.5-10.1); Chloride 100 mmol/L (98-107); Creatinine, Serum 0.84 mg/dL (0.55-1.02); EST Glomerular Filtration Rate 69 mL/min (>60); Est Glom Filt Rate - Afr Amer 83 mL/min (>60); Globulin 3.6 g/dL (2.2-4.2); Glucose 160 mg/dL (74-106); Potassium 4.2 mmol/L (3.5-5.1); Protein, Total 6.8 g/dL (6.4-8.2); Sodium Level 135 mmol/L (136-145)
== END | disposition home or self-care (01) ==
LOC: MTLAB 10:27
PROVIDERS: Family Provider Family Medicine; PCP Family Medicine; Referring Provider Internal Medicine Rheumatology; Visit Provider Internal Medicine Rheumatology
DX: M06.4 Inflammatory polyarthropathy (principal); Z79.899 Other long term (current) drug therapy; M79.7 Fibromyalgia; M25.511 Pain in right shoulder; M15.9 Polyosteoarthritis, unspecified; M17.0 Bilateral primary osteoarthritis of knee; M16.0 Bilateral primary osteoarthritis of hip
CPT/HCPCS: 36415; 80053; 85025

== ENCOUNTER → 2018-09-02 | Outpatient (CLI) | payer MEDICARE, OTHER, SELFPAY ==
[2016-10-02 08:11] VITALS: BMI 32.3
--- NOTE | 2018-09-02 13:32 | BD_ITS ---
STUDY: DUAL ENERGY X-RAY ABSORPTIOMETRY / DXA REASON FOR EXAM: Female, 83 years old. The patient is postmenopausal. Loss of height. TECHNIQUE: Bone Mineral Density (BMD) measurements of lumbar spine and bilateral hips were obtained. COMPARISON: Comparison is made with prior study August 14, 2016. FINDINGS: Lumbar Spine (L1-L4): g/cm2 (0.846) / T-score (-2.7) / Z-score (-0.8) Findings are suggestive of osteoporosis with a high fracture risk. Increased kyphosis. Loss of height of the L1 vertebrae with the prior vertebroplasty. Left Femur Total: g/cm2 (0.892) / T-score (-0.9) / Z-score (1.3) Left Femoral Neck: g/cm2 (0.915) / T-score (-0.9) / Z-score (1.4) Right Femur Total: g/cm2 (0.860) / T-score (-1.2) / Z-score (1.0) Right Femoral Neck: g/cm2 (0.772) / T-score (-1.9) / Z-score (0.4) The T-Scores on the most recent prior examination were: Lumbar Spine (L1-L4): There has been improvement of bone density since the previous examination. Left Femur Total: which represents an improvement of 3%. Right Femur Total: which represents an improvement of 4.5%. BD/Dexa Bone Density Study IMPRESSION: The patient is considered osteoporotic as outlined below according to World Alvin Organization (WHO) criteria with a high fracture risk. There has been improvement of bone density since the previous examination. Reference Information: The T-score is the number of standard deviations above or below the standard which is normal for young adults at their peak bone mineral density. The World Health Organization (WHO) interprets the T-scores as follows: Above -1 Normal bone density Between -1 and -2.5 Osteopenia Equal to / or below -2.5 Osteoporosis As a practical clinical guideline, osteopenia may be graded as follows: Mild -1 through -1.5 Moderate -1.6 through -2.0 Severe -2.1 through -2.4 The Z-score is the number of standard deviations above or below age-matched controls. A Z-score of less than -1.5 would be considered abnormal. References: 1. NIH Osteoporosis and Related Bone Diseases http://www.osteo.org 2. International Society for Clinical Densitometry http://www.iscd.org 3. National Osteoporosis Foundation http://www.nof.org Electronically Signed: Yayo Mckee, at 15:50 EDT , Service support ,
== END | disposition home or self-care (01) ==
LOC: OPBD 13:14
PROVIDERS: Family Provider Family Medicine; PCP Family Medicine; Referring Provider Family Medicine; Visit Provider Family Medicine
DX: M81.0 Age-related osteoporosis without current pathological fracture (principal); M06.4 Inflammatory polyarthropathy; Z79.899 Other long term (current) drug therapy; M79.7 Fibromyalgia; M25.511 Pain in right shoulder; M15.9 Polyosteoarthritis, unspecified; M17.0 Bilateral primary osteoarthritis of knee; M16.0 Bilateral primary osteoarthritis of hip
CPT/HCPCS: 36415; 77080; 80053; 85025

== ENCOUNTER → 2018-11-24 | Outpatient (CLI) | payer MEDICARE, OTHER, SELFPAY ==
[2016-10-02 08:11] VITALS: BMI 32.3
[2018-11-24 15:22] LABS: Absolute Lymphocyte Count 1.63 X10^3/uL (0.83-4.51); Absolute Neutrophil Count 2.5 X10^3/uL (2.0-7.7); Basophil# 0.06 X10^3/uL; Basophil% 1.2 % (0-1); Eosinophil# 0.09 X10^3/uL; Eosinophils% 1.9 % (0-5); Hematocrit 41.1 % (37-47); Hemoglobin 13.6 g/dL (12.0-15.0); Lymphocyte # 1.63 X10^3/ul (4.0); Lymphocyte % 33.5 % (19-41); Mean Corp Hgb Conc 33.1 g/dL (32-36); Mean Corpuscular Hgb 31.8 pg (27.0-32.0); Mean Platelet Vol. 9.2 fl (6.2-12.0); Monocyte% 12.3 % (0-10); NRBC Flagged by Analyzer 0 % (0-5); Neutrophil # 2.47 X10^3/uL (2.7-7.7); Neutrophil % 50.9 % (47-70); Platelet Count 265 K/mm3 (150-450); RBC Distribution Width CV 13.1 % (11.6-14.6); RBC Distribution Width SD 46.1 fl (35.1-43.9); Red Blood Count 4.28 M/mm3 (4.2-5.4); White Blood Count 4.9 K/mm3 (4.4-11.0)
[2018-11-24 15:35] LABS: ALB/GLOB Ratio 0.9 RATIO (0.9-2.4); AST(SGOT) 21 U/L (15-37); Alanine Aminotransfer ALT/SGPT 29 U/L (13-56); Albumin, Serum 3.2 g/dL (3.2-5.0); Alkaline Phosphatase 77 U/L (45-117); Anion Gap 2 (5-15); BUN 11 mg/dL (7-18); BUN/Creat Ratio 11.8 RATIO (10-20); Calcium,Total 8.4 mg/dL (8.5-10.1); Chloride 102 mmol/L (98-107); Creatinine, Serum 0.93 mg/dL (0.55-1.02); EST Glomerular Filtration Rate 61 mL/min (>60); Est Glom Filt Rate - Afr Amer 74 mL/min (>60); Globulin 3.7 g/dL (2.2-4.2); Glucose 113 mg/dL (74-106); Potassium 4.5 mmol/L (3.5-5.1); Protein, Total 6.9 g/dL (6.4-8.2); Sodium Level 133 mmol/L (136-145)
== END | disposition home or self-care (01) ==
LOC: MTLAB 13:36
PROVIDERS: Family Provider Family Medicine; PCP Family Medicine; Referring Provider Internal Medicine Rheumatology; Visit Provider Internal Medicine Rheumatology
DX: M06.4 Inflammatory polyarthropathy (principal); Z79.899 Other long term (current) drug therapy; M79.7 Fibromyalgia; M25.511 Pain in right shoulder; M15.9 Polyosteoarthritis, unspecified; M17.0 Bilateral primary osteoarthritis of knee; M16.0 Bilateral primary osteoarthritis of hip; I10 Essential (primary) hypertension; E78.5 Hyperlipidemia, unspecified
CPT/HCPCS: 36415; 80053; 85025

== ENCOUNTER → 2019-02-13 15:26 | Outpatient (CLI) | payer MEDICARE, OTHER, SELFPAY ==
--- NOTE | 2019-02-13 16:00 | MRI_ITS ---
STUDY: MRI LUMBAR SPINE WITHOUT CONTRAST REASON FOR EXAM: Female, 83 years old. Chronic back pain TECHNIQUE: Standardized fat and water weighted pulse sequences were obtained in the sagittal and axial planes. COMPARISON: Plain films from 14 March 2016 FINDINGS: There is grade 1 degenerative anterolisthesis of L4 on L5, less than 2 mm. There is the spine is intact and aligned. There is chronic compression fracture of T12 with cement augmentation and minor posterior vertical retropulsion without thecal sac or cord compression. Diffuse marrow, paraspinous soft tissues and SI joints are normal. Conus medullaris terminates at T12 with normal cauda equina. There are minor stenoses of L2-L3 and L3-L4 without thecal sac compression. There is no high-grade foraminal stenosis. There are multilevel mild foraminal stenoses. MRI/Spine Lumbar (Routine) IMPRESSION: 1. Expected age-related change without neural compression. 2. Remote T12 compression fracture and cement augmentation. Electronically Signed: Zhou Osman, at 16:59 EST Tel , Service support ,
== END ==
PROVIDERS: Family Provider Family Medicine; PCP Family Medicine; Referring Provider Anesthesiology Pain Medicine; Visit Provider Anesthesiology Pain Medicine
DX: M54.9 Dorsalgia, unspecified (principal); M79.606 Pain in leg, unspecified
CPT/HCPCS: 72148

== ENCOUNTER → 2019-04-21 14:14 | Outpatient (CLI) | payer MEDICARE, OTHER, SELFPAY ==
[2019-04-21 14:00] VITALS: BMI 32.0
--- NOTE | 2019-04-21 14:15 | RAD_ITS ---
STUDY: X-RAY - LUMBAR SPINE REASON FOR EXAM: Female, 83 years old. Lower back pain radiating down both legs. TECHNIQUE: 4 view(s) of the lumbar spine were obtained. COMPARISON: None FINDINGS: Normal lumbar lordosis. There is no substantial scoliosis. There is a normal alignment of the vertebrae. There is no alteration of alignment with flexion or extension. There is a compression deformity of T12 with evidence of vertebral augmentation. The remainder of the vertebral axial heights are maintained. There is generalized demineralization. There is mild disc space narrowing. The soft tissue structures are unremarkable. RAD/L/S Spine Min 4 Views IMPRESSION: 1. Mild degenerative changes and osteopenia of the lumbar spine without vertebral instability. 2. Remote compression deformity of T12 with evidence of vertebral augmentation. Electronically Signed: Marlon Justin DO at 18:51 EST Tel [phone], Service support ,
== END ==
PROVIDERS: Family Provider Family Medicine; PCP Family Medicine; Referring Provider Orthopaedic Surgery; Visit Provider Orthopaedic Surgery
DX: M54.5 Low back pain (principal)
CPT/HCPCS: 72110

== ENCOUNTER → 2019-06-19 10:09 | Outpatient (CLI) | payer MEDICARE, OTHER, SELFPAY ==
[2019-04-21 14:16] VITALS: BMI 32.3
[2019-06-19 10:36] LABS: Absolute Lymphocyte Count 1.16 X10^3/uL (0.83-4.51); Absolute Neutrophil Count 3.5 X10^3/uL (2.0-7.7); Basophil# 0.05 X10^3/uL; Basophil% 0.9 % (0-1); Eosinophil# 0.07 X10^3/uL; Eosinophils% 1.3 % (0-5); Hematocrit 43.4 % (37-47); Hemoglobin 14.1 g/dL (12.0-15.0); Lymphocyte # 1.16 X10^3/ul (4.0); Lymphocyte % 21.8 % (19-41); Mean Corp Hgb Conc 32.5 g/dL (32-36); Mean Corpuscular Hgb 31.5 pg (27.0-32.0); Mean Corpuscular Volume 96.9 fL (81-99); Mean Platelet Vol. 8.8 fl (6.2-12.0); Monocyte# 0.55 X10^3/uL; Monocyte% 10.4 % (0-10); NRBC Flagged by Analyzer 0 % (0-5); Neutrophil # 3.46 X10^3/uL (2.7-7.7); Neutrophil % 65.2 % (47-70); Platelet Count 270 K/mm3 (150-450); RBC Distribution Width CV 13.3 % (11.6-14.6); Red Blood Count 4.48 M/mm3 (4.2-5.4); White Blood Count 5.3 K/mm3 (4.4-11.0)
[2019-06-19 11:19] LABS: ALB/GLOB Ratio 0.8 RATIO (0.9-2.4); AST(SGOT) 23 U/L (15-37); Alanine Aminotransfer ALT/SGPT 28 U/L (13-56); Albumin, Serum 3.2 g/dL (3.2-5.0); Alkaline Phosphatase 80 U/L (45-117); Anion Gap 6 (5-15); BUN 10 mg/dL (7-18); BUN/Creat Ratio 13.9 RATIO (10-20); Calcium,Total 8.6 mg/dL (8.5-10.1); Chloride 101 mmol/L (98-107); Cholesterol 234 mg/dL (200); Creatinine, Serum 0.72 mg/dL (0.55-1.02); EST Glomerular Filtration Rate 82 mL/min (>60); Est Glom Filt Rate - Afr Amer 99 mL/min (>60); Free T3 2.7 pg/mL (2.18-3.98); Globulin 3.8 g/dL (2.2-4.2); Glucose 98 mg/dL (74-106); Hemoglobin A1c 5.8 % (4.2-6.3); High Density Lipoprotein 60 mg/dL; Potassium 4.4 mmol/L (3.5-5.1); Sodium Level 135 mmol/L (136-145); T4 Free Direct 0.92 ng/dL (0.76-1.46); Thyroid Stim Hormone (TSH) 3.19 uIU/mL (0.358-3.74); Triglycerides 138 mg/dL; Very Low Density Lipoprotein 28 mg/dL (5-40)
[2019-06-22 10:58] LABS: Vitamin B12 415 pg/mL (211-911); Vitamin D,25 Hydroxy 29.7 ng/mL
== END ==
PROVIDERS: PCP Family Medicine; Referring Provider Family Medicine; Visit Provider Family Medicine
DX: F32.9 Major depressive disorder, single episode, unspecified (principal); R53.83 Other fatigue; M81.0 Age-related osteoporosis without current pathological fracture; E55.9 Vitamin D deficiency, unspecified; E53.8 Deficiency of other specified B group vitamins; E74.39 Other disorders of intestinal carbohydrate absorption; E78.5 Hyperlipidemia, unspecified; R73.01 Impaired fasting glucose
CPT/HCPCS: 36415; 80053; 80061; 82306; 82607; 83036; 84439; 84443; 84481; 85025

== ENCOUNTER → 2019-10-19 14:20 | Outpatient (CLI) | payer MEDICARE, OTHER, SELFPAY ==
[2019-04-21 14:16] VITALS: BMI 32.3
[2019-10-19 17:15] LABS: Absolute Neutrophil Count 4.2 X10^3/uL (2.0-7.7); Basophil# 0.05 X10^3/uL; Basophil% 0.7 % (0-1); Eosinophil# 0.05 X10^3/uL; Eosinophils% 0.7 % (0-5); Hematocrit 40.3 % (37-47); Hemoglobin 13.2 g/dL (12.0-15.0); Lymphocyte % 24.4 % (19-41); Mean Corp Hgb Conc 32.8 g/dL (32-36); Mean Corpuscular Volume 97.8 fL (81-99); Mean Platelet Vol. 9.6 fl (6.2-12.0); Monocyte# 0.92 X10^3/uL; Monocyte% 13.2 % (0-10); NRBC Flagged by Analyzer 0 % (0-5); Neutrophil # 4.22 X10^3/uL (2.7-7.7); Neutrophil % 60.7 % (47-70); Platelet Count 278 K/mm3 (150-450); RBC Distribution Width CV 13.8 % (11.6-14.6); RBC Distribution Width SD 49.1 fl (35.1-43.9); Red Blood Count 4.12 M/mm3 (4.2-5.4)
[2019-10-19 17:37] LABS: ALB/GLOB Ratio 0.9 RATIO (0.9-2.4); AST(SGOT) 17 U/L (15-37); Alanine Aminotransfer ALT/SGPT 27 U/L (13-56); Albumin, Serum 3.2 g/dL (3.2-5.0); Alkaline Phosphatase 130 U/L (45-117); Anion Gap 6 (5-15); BUN 9 mg/dL (7-18); BUN/Creat Ratio 11.8 RATIO (10-20); Calcium,Total 8.7 mg/dL (8.5-10.1); Chloride 94 mmol/L (98-107); Creatinine, Serum 0.76 mg/dL (0.55-1.02); EST Glomerular Filtration Rate 77 mL/min (>60); Est Glom Filt Rate - Afr Amer 93 mL/min (>60); Globulin 3.7 g/dL (2.2-4.2); Glucose 144 mg/dL (74-106); Protein, Total 6.9 g/dL (6.4-8.2); Sodium Level 130 mmol/L (136-145)
== END ==
PROVIDERS: PCP Family Medicine; Visit Provider Family Medicine
DX: Z51.81 Encounter for therapeutic drug level monitoring (principal)
CPT/HCPCS: 36415; 80053; 85025

== ENCOUNTER → 2019-10-30 15:42 | Outpatient (CLI) | payer MEDICARE, OTHER, SELFPAY ==
[2019-04-21 14:16] VITALS: BMI 32.3
[2019-10-30 15:46] LABS: Bacteria 0 SEEN /hpf (None Seen); Mucous, Urine 0 SEEN /hpf (<or=2+); Red Blood Cells-Urine 0 SEEN /hpf (0-5); Squamous Epithelial Cells - UA 0 SEEN /hpf (5-10); White Blood Cells 0 SEEN /hpf (0-5)
[2019-10-30 16:57] LABS: Color, Urine Yellow (Yellow); Glucose, Dipstick Normal (Normal); Ketone-Dipstick Negative (Negative); Leukocyte Esterase-Dipstick Negative /ul (Negative); Nitrite-Dipstick Negative (Negative); Occult Blood-Urine Negative /ul (Negative); Protein-Dipstick Negative (Negative); Specific Gravity, Urine 1.015 (1.002-1.030); Urine Bilirubin Dipstick Negative (Negative); Urine Clarity Clear (Clear); Urine Urobilinogen Normal (Normal)
== END ==
PROVIDERS: PCP Family Medicine; Visit Provider Family Medicine
DX: R30.0 Dysuria (principal)
CPT/HCPCS: 36415; 81001; 87086; 87088

== ENCOUNTER 2019-10-31 15:10 | Emergency (ER) | payer MEDICARE, OTHER, SELFPAY ==
[2019-04-21 14:16] VITALS: BMI 32.3
[2019-10-31 15:12] VITALS: BP 192/92; PULSE 70; RESP 18; TEMP 36.3; O2SAT 98; BMI 32.0
--- NOTE | 2019-10-31 15:53 | ED.DCSUM_ITS ---
History of Present Illness Informant: Patient Onset: Days - 5 days Context: Gradual Onset Chronic pain exacerbated by: bending over Injury: Bending Timing: Continuous Quality: Sharp Location: Lumbar Current Severity: Severe Maximum Severity: Severe Worsened by: improves with: Movement, Ambulation, Bending Relieved by: Nothing Associated Symptoms: Radiation to Right Leg Narrative: 84-year-old female with a history of chronic back pain presents to the emergency department with an acute exacerbation of her chronic back pain. Her symptoms started on Saturday 5 days ago after she bent over to take her shoes off. She has not fallen or suffer trauma. She has not had relief with her tramadol. Pain radiates into her right thigh which is consistent with her chronic pain. She has not had any lower extremity numbness tingling or weakness. She has not lost control of her bowel or bladder function. She is urinating normally. She is still ambulatory. She has not had a fever. Denies nausea vomiting or diarrhea. Denies constipation. He was seen by surgery 6 months ago after having an MRI and was told that this was not a surgical issue and she has been in pain management and she takes tramadol. Prior similar symptoms: Yes, With Prior Back Pain Recent Illness/Hospitalization: No <Raul Daley - Last Filed: 10/31/19 18:14> <Dean Menjivar - Last Filed: 10/31/19 23:01> Chief Complaint: Back Past Medical History Prior records reviewed: Yes Past Medical History: - - Hypertension, hyperlipidemia, chronic back pain Surgical History: noncontributory Lives: With Family Smoking Status: Never smoker Alcohol: None Drugs: None <Raul Daley - Last Filed: 10/31/19 18:14> <Dean Menjivar - Last Filed: 10/31/19 23:01> - Allergies and Home Meds Allergies/Adverse Reactions: Allergies acetaminophen [From Vicodin] Adverse Reaction (Verified 10/31/19 15:13) Vomiting hydrocodone bitartrate [From Vicodin] Adverse Reaction (Verified 10/31/19 15:13) Vomiting morphine Adverse Reaction (Verified 10/31/19 15:13) Vomiting oxycodone HCl [From Percocet] Adverse Reaction (Verified 10/31/19 15:13) Vomiting Primary Care Physician: Malu Hernandez DO [Primary Care Provider] - Review of Systems All systems negative except as indicated General: Denies: Chills, Fever, Sweats Eyes: Denies: Visual changes - bilaterally, Diplopia ENT: Denies: Rhinorrhea, Sore throat Cardiovascular: Denies: Chest pain, Palpitations Respiratory: Denies: Dyspnea, Cough, Dyspnea on exertion Gastrointestinal: Denies: Abdominal pain, Nausea, Vomiting, Diarrhea, Melena, Hematochezia Genitourinary: Denies: Dysuria, Hematuria, Frequency Musculoskeletal: Reports: Back pain. Denies: Arthralgias, Neck pain, Swelling, Extremity Pain Skin: Denies: Rash, Wounds Neurological: Denies: Headache, Weakness, Parasthesia, Numbness <Raul Daley - Last Filed: 10/31/19 18:14> Physical Exam Vital Signs/Narrative: Vital Signs Temp Pulse Resp BP Pulse Ox 10/31/19 15:12 97.4 F L 70 18 192/92 H 98 Inital Vital Signs reviewed: Yes General: Well nourished, Well developed Head: Normocephalic, Atraumatic Eyes: Perrl, EOMI ENT: Moist mucous membranes, No rhinorrhea Neck: Supple, Nontender Cardiovascular: Regular rate, Regular rhythm, No murmurs Respiratory: No distress, CTA bilaterally, Chest nontender Abdomen: Soft, Nontender, Nondistended, Normal bowel sounds Back: Normal Inspection, Paraspinal Tenderness, Positive SLR - Right, Negative SLR - Left. Negative for: Spinal tenderness, CVA tenderness Extremeties: Nontender, No edema. Negative for: Edema Skin: Normal color, No rash, No Trauma Neuro: Alert, Oriented, Normal Strength, Normal Sensation, Normal DTR, Normal Gait, Normal Reflexes Psychological: Normal affect, Normal Mood <Raul Daley - Last Filed: 10/31/19 18:14> Diagnostic/Tx/Re-eval - Medical Decision Making Patient presents with acute on chronic back pain. She does not have any signs or symptoms of cauda equina syndrome. She is neurovascularly intact with stable vital signs. She was given a dose of morphine with a dose of oral Zofran. Repeat exam she has improvement of her pain. Tolerating by mouth. She is ambulatory. She will be discharged. She will continue her Ultram at home and follow-up with her pain management physician. <Raul Daley - Last Filed: 10/31/19 18:14> - Medical Decision Making Patient was seen with me. I did a [id number] examination with the patient. Patient presents with acute on chronic back pain. Patient denies any specific trauma or injury. Patient states her pain medications at home have not been helping. Patient denies any new injury. Patient denies any trauma. Patient denies any bowel or bladder changes. Patient denies any saddle anesthesia. Patient states her pain is worse with certain movements. Vital signs are stable. Patient is afebrile. Patient is in no acute distress. Musculoskeletal exam reveals tenderness over the lumbar paraspinal muscles. There is no midline tenderness. There is no bony crepitance or step-off. Range of motion was limited in all motion secondary to pain. Strength is 5/5 bilateral knee upper and lower extremities. There are no sensory deficits noted. Patient was given a dose of morphine here. Patient has some improvement of her pain. Patient is able to ambulate. Patient was instructed to follow-up with her primary care physician in 5 to 7 days. Patient was instructed to continue h er pain medications as prescribed. Patient was also instructed to follow-up with her pain management physician. Patient understood and was agreeable with the plan. All questions were answered. <Dean Menjivar - Last Filed: 10/31/19 23:01> ED Disposition <Raul Daley - Last Filed: 10/31/19 18:14> <Dean Menjivar - Last Filed: 10/31/19 23:01> - Plan for ED Patient: Disposition: Home or Assisted Living Diagnosis: Chronic back pain Instructions: ED Back Care Tips, ED Back Pain Acute or Chronic Referrals: Malu Hernandez DO [Primary Care Provider] -
[2019-10-31] MEDS: Ondansetron ODT 4 MG Tablet PO (16:10)
[2019-10-31] MEDS: morphine 10 MG/ML Syringe SC (16:11)
[2019-10-31 18:01] VITALS: BP 186/93; PULSE 82; RESP 12; O2SAT 96
== END 2019-10-31 18:54 | disposition home or self-care (01) ==
PROVIDERS: Emergency Provider Physician Assistant Medical; PCP Family Medicine
DX: M54.5 Low back pain (principal); G89.29 Other chronic pain; I10 Essential (primary) hypertension; E78.5 Hyperlipidemia, unspecified; Z79.899 Other long term (current) drug therapy
CPT/HCPCS: 96372; 99282

== ENCOUNTER → 2019-11-13 10:57 | Outpatient (CLI) | payer MEDICARE, OTHER, SELFPAY ==
[2019-10-31 15:12] VITALS: BMI 32.0
--- NOTE | 2019-11-13 11:30 | MRI_ITS ---
STUDY: MRI LUMBAR SPINE WITHOUT CONTRAST REASON FOR EXAM: Female, 84 years old. Worsening LBP, change in pain x 2.5 weeks TECHNIQUE: Standardized fat and water weighted pulse sequences were obtained in the sagittal and axial planes. COMPARISON: 02/13/2019 FINDINGS: T12-L1: Normal endplates. Normal disc height, hydration and morphology. Normal bilateral facet joints. Normal central canal and bilateral lateral recesses. Normal bilateral intervertebral neural foramina. Normal lumbar lordosis. There is no substantial scoliosis. Normal conus medullaris that terminates at the L1. Chronic moderate compression fracture of T12 treated with vertebroplasty. Acute mild compression fracture of L3 without retropulsion into the spinal canal. L1-2: Normal endplates. Normal disc height, hydration and morphology. Normal bilateral facet joints. Normal central canal and bilateral lateral recesses. Normal bilateral intervertebral neural foramina. L2-3: Mild bilateral facet hypertrophy and severe ligament flavum hypertrophy. Mild bilobed disc protrusion produces mild spinal stenosis and mild bilateral neural foraminal stenosis. L3-4: Mild bilateral facet hypertrophy and severe ligament flavum hypertrophy. Mild broad disc protrusion produces mild spinal stenosis and mild bilateral neural foraminal stenosis. L4-5: Moderate bilateral facet hypertrophy and severe ligament flavum hypertrophy. Mild broad disc protrusion produces mild spinal stenosis and mild bilateral neural foraminal stenosis. L5-S1: Normal endplates. Normal disc height, hydration and morphology. Normal bilateral facet joints. Normal central canal and bilateral lateral recesses. Normal bilateral intervertebral neural foramina. Normal visualized sacral ala. Normal visualized paraspinous soft tissue structures. MRI/Spine Lumbar (Routine) IMPRESSION: 1. Acute mild compression fracture of L3 without retropulsion into the spinal canal. 2. Chronic moderate compression fracture of T12 treated with vertebroplasty with focal kyphosis. 3. Degenerative disc disease as described above. Electronically Signed: Edison Martinez MD at 12:24 EDT Tel , Service support ,
== END ==
PROVIDERS: PCP Family Medicine; Referring Provider Family Medicine; Visit Provider Family Medicine
DX: M54.16 Radiculopathy, lumbar region (principal); M54.5 Low back pain; G89.29 Other chronic pain
CPT/HCPCS: 72148

== ENCOUNTER → 2019-11-24 | Outpatient (CLI) | payer MEDICARE, OTHER, SELFPAY ==
[2019-10-31 15:12] VITALS: BMI 32.0
--- NOTE | 2019-11-24 16:16 | BON_PTH ---
PATIENT: [facility]ICHOLAS CORDON [facility] U[facility][id number] AGE/SX: 84/F ROOM: RE11/24/[address]: Dr. Yung Roman MD : [id number] BED: DIS: 11/24/2019 SPEC #: [id number] RECD: 11/25/19 15:20 STATUS: MARGARETTE REErnesto #: [id number] MARIANA: 11/24/19 16:[address]: Yung Roman DEPT: SURGICAL PATHOLOGY RECD BY: Oswald Majano ENTERED: 11/26/19 09:28 SP TYPE: Bone OTHR DR: Dr. Malu Hernandez, [facility] Tissues: Vertebra, NOS Procedures: Decalcification bone/plaque Surgery Specimen Level IV HEADER OPERATION: Kyphoplasty L3 PRE-OP DIAGNOSIS: Compression fracture of lumbar spine TISSUE SUBMITTED: Bone L3 MICROSCOPIC DIAGNOSIS Bone L3: A piece of bone and blood clots, negative for malignancy, clinically compression fracture. SJ:wan 11/30/19 MICROSCOPIC DESCRIPTION Slides are reviewed. GROSS DESCRIPTION Received is one container labeled with the patient's name and not further designated. The specimen consists of a piece of bone mixed with blood clot. The bone fragment measures 0.3 x 0.1 x 0.1 cm. The blood clot measures 0.5 x 0.1 x 0.1 cm. The entire specimen is submitted in one cassette after short decalcification. / BELL:wan 11/26/19 TC: 5 CPT: 60856, 29612
== END | disposition home or self-care (01) ==
LOC: LABSPEC 11-26 09:44
PROVIDERS: PCP Family Medicine; Referring Provider Anesthesiology Pain Medicine; Visit Provider Anesthesiology Pain Medicine
DX: M48.56XA Collapsed vertebra, not elsewhere classified, lumbar region, initial encounter for fracture (principal)
CPT/HCPCS: 88305; 88311

== ENCOUNTER 2019-12-03 10:24 | Emergency (ER) | payer MEDICARE, OTHER, SELFPAY ==
[2019-12-03 10:25] VITALS: BP 173/78; PULSE 80; PULSE 82; RESP 17; RESP 20; TEMP 36.4; O2SAT 94; O2SAT 97; BMI 32.7
--- NOTE | 2019-12-03 11:00 | RAD_ITS ---
STUDY: X-RAY - LUMBAR SPINE REASON FOR EXAM: Female, 84 years old. L-3 KYPHOPLASTY X1 WEEK AGO, INCREASED PAIN RADIATES INTO BILAT LEGS -- HX PREVIOUS KYPHOPLASTY FEW YRS AGO TECHNIQUE: 3 view(s) of the lumbar spine were obtained. COMPARISON: Comparison is made with prior study dated 10/20/2019. FINDINGS: Normal lumbar lordosis. There is no substantial scoliosis. There is a normal alignment of the vertebrae. Stable complete collapse of the T12 vertebra with the vertebroplasty. Vertebroplasty of the L2 vertebrae. There is evidence of sclerosis of the L3 vertebrae at this time. There is multi-level degenerative disc disease with multi-level disc space narrowing. Facet joint osteoarthritis. There is atherosclerotic calcification of the abdominal aorta without a demonstrated aneurysm. RAD/Lumbar Spine 2 or 3 Views IMPRESSION: Degenerative changes of the spine, as detailed above. Stable collapse and vertebroplasty of the T12 vertebrae. New vertebroplasty of the L2 vertebrae. Increased sclerosis of the L3 vertebra as compared to prior study. Electronically Signed: Yayo Mckee, at 11:19 EDT , Service support ,
--- NOTE | 2019-12-03 11:23 | ED.DCSUM_ITS ---
History of Present Illness Chief Complaint: Back Informant: Patient Onset: Days Maximum Severity: Moderate Narrative: Patient presents with low lumbar back pain she indicates is had ongoing lumbar back pain she was recently found to have a lumbar fracture she had kyphoplasty by her pain management physicians a few days ago she has had persistence of the pain post that procedure she was taking medication she reports no improvement she spoke with the office and she instructed come to the hospital. She is having no head neck chest or abdominal pain no bowel or bladder complaints is able to get up and do all of her daily activities such as dressing and bathing etc. Past Medical History - Allergies and Home Meds Allergies/Adverse Reactions: Allergies acetaminophen [From Vicodin] Adverse Reaction (Verified 12/03/19 10:25) Vomiting hydrocodone bitartrate [From Vicodin] Adverse Reaction (Verified 12/03/19 10:25) Vomiting oxycodone HCl [From Percocet] Adverse Reaction (Verified 12/03/19 10:25) Vomiting Primary Care Physician: Malu Hernandez DO [Primary Care Provider] - Past Medical History: - - Sent kyphoplasty and includes as above Surgical History: noncontributory Smoking Status: Never smoker Review of Systems General: Denies: Chills, Fever, Sweats Eyes: Denies: Visual changes - bilaterally, Diplopia ENT: Denies: Rhinorrhea, Sore throat Cardiovascular: Denies: Chest pain, Palpitations Respiratory: Denies: Dyspnea, Cough, Dyspnea on exertion Gastrointestinal: Denies: Abdominal pain, Nausea, Vomiting, Diarrhea, Melena, Hematochezia Genitourinary: Denies: Dysuria, Hematuria, Frequency Musculoskeletal: Reports: Back pain. Denies: Extremity Pain Skin: Denies: Rash, Wounds Neurological: Denies: Headache, Weakness, Numbness Physical Exam Vital Signs/Narrative: Vital Signs Temp Pulse Resp BP Pulse Ox 12/03/19 10:25 97.5 F L 80 20 H 173/78 H 97 General: Well nourished, Well developed, No Acute Distress Head: Normocephalic, Atraumatic Eyes: Perrl, EOMI ENT: Moist mucous membranes, No rhinorrhea Neck: Supple, Nontender Cardiovascular: Regular rate, Regular rhythm, No murmurs Respiratory: No distress, CTA bilaterally, Chest nontender Abdomen: Soft, Nontender, Nondistended, Normal bowel sounds Back: Normal Inspection, - - Patient has a mild degree of discomfort to palpation of the low lumbar spine the back itself is unremarkable neurologically she is awake moving all 4 no signs of cauda equina or red flags abdomen soft and nontender Extremities: Nontender, No edema Skin: Normal color, No rash Neurological: Alert, Oriented x3, Cranial nerves II-XII grossly intact, Normal Strength, Normal Sensation Psychological: Normal affect, Normal Mood Diagnostic/Tx/Re-eval - Medical Decision Making Differentials rather extensive at this time pain management x-ray Patient's lumbar spine x-ray shows nothing acute she has a kyphoplasty at T12 lumbar 1, DJD at lumbar 3, no obvious signs of kyphoplasty. She is feeling better we discussed inpatient versus outpatient management she wants to go home. I spoke with Dr. Cohen's team, her attending physician they will see her tomorrow, the patient per that service has had a prior T12 kyphoplasty prior L1 kyphoplasty, and a recent L3 kyphoplasty, the patient was unaware of that she has had 3 kyphoplasty's. We discussed the patient's pain management she indicates she is not allergic to acetaminophen or oxycodone that the Ultram is not helping, she feels that she will be safe at home as she has had these exacerbations in the past she will be discharged with a short course of Percocet as she is going to be seen by pain management tomorrow Home stable declined admission Impression final acute recurrent lumbar back pain recent kyphoplasty at lumbar spine 3 ED Disposition - Plan for ED Patient: Instructions: ED Spasm Back No Trauma Prescriptions: Oxycodone HCl/Acetaminophen [Percocet 5/325] 1 tab PO Q6H PRN PRN #10 tab PRN Reason: Pain Score 4-10/10 Prescription Printed Oxycodone HCl/Acetaminophen [Percocet 5/325] 1 tablet PO Q6H PRN PRN #10 tablet PRN Reason: Pain Score 1-5/10 Transmission Status: Received by GINNY AVALOS-1955 [facility] Referrals: Malu Hernandez DO [Primary Care Provider] -
[2019-12-03] MEDS: morphine 8 MG/ML Syringe IM (12:05)
[2019-12-03] MEDS: Ondansetron 8 MG Tablet PO (12:09)
[2019-12-03 15:00] VITALS: BP 178/84; PULSE 80; RESP 17; O2SAT 96
== END 2019-12-03 15:01 | disposition home or self-care (01) ==
LOC: ED 11:17
PROVIDERS: Emergency Provider Emergency Medicine; PCP Family Medicine
DX: M54.5 Low back pain (principal); Z98.890 Other specified postprocedural states; M47.816 Spondylosis without myelopathy or radiculopathy, lumbar region
CPT/HCPCS: 72100; 96372; 99284

== ENCOUNTER 2019-12-04 11:19 | Inpatient (IN) | payer MEDICARE, OTHER, SELFPAY ==
[2019-12-03 10:25] VITALS: BMI 32.7
[2019-12-04] VITALS (13 sets, daily range): BP systolic 110–197; BP diastolic 48–104; PULSE 20–88; RESP 16–20; TEMP 36.3–36.7; O2SAT 93–99; BMI 32.8; BMI 32.3; BMI 32.4
--- NOTE | 2019-12-04 11:48 | ED.VIS.GEN ---
History of Present Illness Chief Complaint: Back Informant: Patient, Family Onset: Weeks Current Severity: Moderate Maximum Severity: Severe Narrative: Patient presents with back pain and a fall. She has had back pain for the last for 5 weeks. Per family an MRI was performed that showed 2 compression fractures. She had kyphoplasty last week with Dr. Cohen. Patient was seen in the ER due to continued pain yesterday. X-ray was unremarkable and patient was given Percocet for home after being treated with morphine in the ER. Patient states that she went home and laid on the couch. She was unable to get up to make herself dinner. At some point during the night she tried to get up and fell onto the floor where her [id number] found her this morning. Patient does complain of worsened low back pain that is rating up toward her shoulder blades. No bowel or bladder problems. Pain does not radiate to her legs. - Past Medical History (1) Rheumatoid arthritis Status: Chronic (2) Hypertension Status: Chronic (3) GERD (gastroesophageal reflux disease) Status: Chronic Past Medical History - Allergies and Home Meds Allergies/Adverse Reactions: Allergies acetaminophen [From Vicodin] Adverse Reaction (Verified 12/04/19 11:19) Vomiting hydrocodone bitartrate [From Vicodin] Adverse Reaction (Verified 12/04/19 11:19) Vomiting oxycodone HCl [From Percocet] Adverse Reaction (Verified 12/04/19 11:19) Vomiting Primary Care Physician: Malu Hernandez DO [Primary Care Provider] - Prior records reviewed: Yes Surgical History: noncontributory Lives: Alone Smoking Status: Never smoker Review of Systems General: Denies: Chills, Fever Eyes: Denies: Visual changes - bilaterally ENT: Denies: Bilateral ear pain Cardiovascular: Denies: Chest pain, Palpitations Respiratory: Denies: Dyspnea, Cough Gastrointestinal: Denies: Abdominal pain, Nausea, Vomiting Musculoskeletal: Reports: Back pain Neurological: Denies: Parasthesia, Numbness Hematologic: Denies: Easy bruising, Easy bleeding Allergy: Denies: Uticaria Physical Exam Vital Signs/Narrative: Vital Signs Temp Pulse Resp BP Pulse Ox 12/04/19 11:20 97.6 F L 82 17 195/95 H 96 Inital Vital Signs reviewed: Yes General: Well nourished, Well developed Head: Normocephalic ENT: Moist mucous membranes Neck: Supple Cardiovascular: Regular rate, Regular rhythm Respiratory: No distress, CTA bilaterally Abdomen: Soft, Nontender, Normal bowel sounds Skin: Normal color Neurological: Alert, Oriented x3, - - Sensation throughout. Equal pulses distally. Psychological: Normal affect Diagnostic/Tx/Re-eval Impressions Lumbar Spine CT 12/04/19 12:15 IMPRESSION: Heterogeneous appearance of the L3 vertebrae with the loss of height. A metastatic deposit should be ruled out. Electronically Signed: Yayo Mckee, at 12:34 EDT , Service support , 12/04/19 12:15 CT Lumbar [Spine Lumbar without Contrast] [CT] Stat Laboratory Results 12/04/19 12/04/19 12/04/19 12:10 12:10 12:10 WBC 11.6 H RBC 4.74 Hgb 15.4 H Hct 45.5 MCV 96.0 MCH 32.5 H MCHC 33.8 RDW Std Deviation 49.0 H RDW Coeff of Ruma 13.9 Plt Count 340 MPV 9.0 Immature Gran % (Auto) 0.400 Neut % (Auto) 86.1 H Lymph % (Auto) 6.2 L [place] % (Auto) 7.0 Eos % (Auto) 0.0 Baso % (Auto) 0.3 Absolute Neuts (auto) 10.0 H Absolute Lymphs (auto) 0.72 L Nucleated RBC % 0 Sodium 131 L Potassium 4.5 Chloride 98 Carbon Dioxide 27.0 Anion Gap 6 BUN 31 H Creatinine 0.96 Estim Creat Clear Calc 33.89 Est GFR (MDRD) Af Amer 71 Est GFR (MDRD) Non-Af 59 L BUN/Creatinine Ratio 32.3 H Glucose 149 H Calcium 9.7 Total Creatine Kinase 324 H - Medical Decision Making Patient was given 2 mg of morphine, 4 mg of Zofran, and IV fluids. On repeat evaluation she is resting comfortably. CT scan does mention abnormal density to the L3 vertebrae and recommends ruling out metastatic lesion. She had an MRI of her lumbar spine on 11/13/2019. At that time there was an acute mild compression fracture of L3 without retropulsion. This is the level that she just had kyphoplasty reportedly performed. At this time patient does have evidence of mild rhabdomyolysis. She will be admitted for IV fluid hydration, physical therapy, and further evaluation of her back pain. Time: I was able to find a bone pathology report from November 23. This was reportedly done at the time of kyphoplasty of L3. Tissue submitted is bone of L3. Diagnosis is a piece of bone blood clots, negative for malignancy, clinically compression fracture. ED Disposition - Plan for ED Patient: Disposition: Acute Care Hospital [facility] Diagnosis: Back pain, Fall, Rhabdomyolysis Referrals: Malu Hernandez DO [Primary Care Provider] -
[2019-12-04] MEDS: Ondansetron 4 MG/2 ML Vial IV ×2 (12:08→22:04)
[2019-12-04] MEDS: Morphine 2 MG/ML Syringe IV ×3 (12:08→22:05)
[2019-12-04] MEDS: 0.9% Normal Saline 1,000 ML 15 ML IV (12:09)
--- NOTE | 2019-12-04 12:11 | ED.RN ---
pt resting with eyes closed sats 87-89% on ra. placed on 2 lo2. sats 97%
--- NOTE | 2019-12-04 12:15 | CT_ITS ---
STUDY: CT LUMBAR SPINE WITHOUT CONTRAST REASON FOR EXAM: Female, 84 years old. Back pain, slipped off couch last night, on floor all night, recent kyphoplasty for fracture L3, L1 RADIATION DOSAGE (If Supplied By Facility): CTDIvol = ( 45.66 ) mGy, DLP = ( 1326.71 ) mGycm TECHNIQUE: The patient was scanned in a multi detector CT scanner. High resolution transaxial imaging was performed. Images were obtained from T12 to S1 vertebral level. Sagittal and coronal images were reconstructed. Individualized dose optimization techniques were used for this CT. COMPARISON: None FINDINGS: Normal lumbar lordosis. There is no substantial scoliosis. Almost complete collapse of the T12 vertebrae with the prior evidence of a vertebroplasty. L1-2: Vertebroplasty of the L2 vertebrae with a mild degree of loss of height of the superior endplate of the L2 vertebrae. Mild degree of facet joint osteoarthritis. L2-3: Mild degree of disc space narrowing. Almost complete collapse of the L3 vertebrae. The L3 vertebrae as it only a homogeneous appearance. A neoplastic process should be ruled out. L3-4: Heterogeneous appearance of the L3 vertebrae with evidence of loss of height as described. Mild anterior spondylosis. Mild degree of disc space narrowing. Facet joint osteoarthritis. Moderate degree of bilateral neural foraminal stenosis. L4-5: Facet joint osteoarthritis. Mild degree of diffuse disc bulging. L5-S1: Normal endplates. Normal disc height and morphology. Normal bilateral facet joints. Normal central canal and bilateral lateral recesses. Normal bilateral intervertebral neural foramina. Normal visualized paraspinous soft tissue structures. CT/Spine Lumbar without Contrast IMPRESSION: Heterogeneous appearance of the L3 vertebrae with the loss of height. A metastatic deposit should be ruled out. Electronically Signed: Yayo Mckee, at 12:34 EDT , Service support ,
[2019-12-04 12:19] LABS: Absolute Lymphocyte Count 0.72 X10^3/uL (0.83-4.51); Basophil# 0.04 X10^3/uL; Basophil% 0.3 % (0-1); Hematocrit 45.5 % (37-47); Hemoglobin 15.4 g/dL (12.0-15.0); Lymphocyte # 0.72 X10^3/ul (4.0); Lymphocyte % 6.2 % (19-41); Mean Corp Hgb Conc 33.8 g/dL (32-36); Mean Corpuscular Hgb 32.5 pg (27.0-32.0); Monocyte# 0.81 X10^3/uL; NRBC Flagged by Analyzer 0 % (0-5); Neutrophil # 9.96 X10^3/uL (2.7-7.7); Neutrophil % 86.1 % (47-70); Platelet Count 340 K/mm3 (150-450); RBC Distribution Width CV 13.9 % (11.6-14.6); Red Blood Count 4.74 M/mm3 (4.2-5.4); White Blood Count 11.6 K/mm3 (4.4-11.0)
[2019-12-04 12:31] LABS: Anion Gap 6 (5-15); BUN 31 mg/dL (7-18); BUN/Creat Ratio 32.3 RATIO (10-20); Calcium,Total 9.7 mg/dL (8.5-10.1); Chloride 98 mmol/L (98-107); Creatinine, Serum 0.96 mg/dL (0.55-1.02); EST Glomerular Filtration Rate 59 mL/min (>60); Est Glom Filt Rate - Afr Amer 71 mL/min (>60); Estimated Creatinine Clearance 33.89 ml/min; Glucose 149 mg/dL (74-106); Potassium 4.5 mmol/L (3.5-5.1); Sodium Level 131 mmol/L (136-145)
[2019-12-04 12:39] LABS: CPK Total, Creatine Kinase 324 U/L (26-192)
--- NOTE | 2019-12-04 13:07 | NURSING ---
MED SURG FALL, BACK PAIN JESUS
[2019-12-04] MEDS: 0.9% Normal Saline 1,000 ML 150 ML IV (13:12)
--- NOTE | 2019-12-04 13:30 | CM.ED ---
SOCIAL WORK Received call from Catalina BRADFORD stating Dr. Schultz inquiring about Rehab for patient from ER. Call to Carolynn with Rehab to inquire about bed availability and possible referral. Per Carolynn, patient would need to be admitted as no physician coverage today. Updated Dr. Escobar and Dr. Schultz. Patient was taken to floor before seen by SANCHEZ in ED. Case Management/SANCHEZ to follow up tomorrow regarding discharge planning. Kenji Chew, ANNUAL GIVING OFFICER, GRAPHIC MANAGER
--- NOTE | 2019-12-04 13:35 | HP.PCM_ITS ---
Problem List (1) Rheumatoid arthritis Status: Chronic (2) Hypertension Status: Chronic (3) GERD (gastroesophageal reflux disease) Status: Chronic (4) Back pain Status: Acute (5) Fall Status: Acute (6) Rhabdomyolysis Status: Acute History of Present Illness Date of Admission: 12/04/19 Chief Complaint: Intractable back pain. The patient is a 84 year old F who presents to the emergency room with intractable back pain. Patient reports ongoing back pain for the past 5 weeks. She underwent lumbar spine MRI 11/13/2019 which showed acute mild compression fracture of L3 and chronic moderate compression fracture of T12 treated with vertebroplasty with focal kyphosis. She had recent L1 kyphoplasty by Dr. Roman 11/24/2019. Patient states she is unable to ambulate due to significant pain. She reports she laid on the floor last night due to significant pain and unable to ambulate. Lumbar spine CT on admission shows new L4 compression fx. she denies loss of bowel or bladder function however reports she has felt the urge to void and has been having difficulty. Denies dysuria. She denies recent fall or injury. During her recent evaluation, bone pathology from L3 ruled out malignancy. She has a past medical history of hypertension, GERD, depression, osteoarthritis. Past Medical History Past Medical History (Chronic Problems): Chronic Problems Rheumatoid arthritis (Chronic) Hypertension (Chronic) GERD (gastroesophageal reflux disease) (Chronic) Allergies acetaminophen [From Vicodin] Adverse Reaction (Verified 12/04/19 11:19) Vomiting hydrocodone bitartrate [From Vicodin] Adverse Reaction (Verified 12/04/19 11:19) Vomiting oxycodone HCl [From Percocet] Adverse Reaction (Verified 12/04/19 11:19) Vomiting Home Medications: Ambulatory Orders Medication Instructions Recorded Temazepam [Restoril] 15 mg PO QHS PRN PRN 05/14/13 Methotrexate 15 mg PO TU 03/14/16 leucovorin tablet 15 mg PO WE 03/14/16 traMADol [Ultram (G)] 50 mg PO Q6H PRN PRN 03/14/16 Duloxetine HCl 60 mg PO DAILY 10/31/19 Oxybutynin [Ditropan] 5 mg PO DAILY 10/31/19 Folic Acid 1 mg PO DAILY 12/03/19 Omeprazole 20 mg PO DAILY PRN PRN 12/03/19 Oxycodone HCl/Acetaminophen 1 tab PO Q6H PRN PRN #10 tab 12/03/19 [Percocet 5/325] Calcium Carbonate/Vitamin D3 1 tab PO DAILY 12/04/19 [Calcium 600-Vit D3 200 Tablet] Denosumab [Prolia] 60 mg IN .[id number] 12/04/19 Lisinopril [Zestril] 20 mg PO BREAKFAST 12/04/19 Surgical History: tonsillectomy, - - Kyphoplasty Psychiatric History: Depression FINANCE ASSISTANT History: No pertinent FINANCE ASSISTANT history Lives: Alone Smoking Status: Never smoker Alcohol: Occasional Drugs: None - *Family History Maternal History Items: - - Denies known maternal medical history including cardiac history. Paternal History Items: Diabetes Review of Systems Constitutional: Denies: Chills, Fever, Weight Change HEENT: Denies: Head Aches, Sinus Congestion, Sinus Drainage Cardiovascular: Denies: Chest Pain, Palpitations Respiratory: Denies: Cough, Shortness of breath at rest, Sputum production Gastrointestinal: Denies: Abdominal Pain, Nausea, Vomiting Genitourinary: Denies: Dysuria Musculoskeletal: Reports: Back Pain Skin: Denies: Rash, Wounds Neurological: Denies: Numbness, Tingling, Focal weakness Psychiatric: Denies: Anxiety, Depression, Homicidal Ideations, Suicidal Ideations Hematologic/ Lymphatic: Denies: Easy Bruising, Easy Bleeding VTE Information - Inpt Only VTE Present on Admission: No VTE Mechan Device Prophylaxis: None VTE Pharm Prophylaxis ordered?: Yes Patient Problems: Active and Suspected Problems Back pain (Acute) Fall (Acute) Rhabdomyolysis (Acute) - Physical Exam Vitals/I&O's: Vital Signs Temp Pulse Resp BP Pulse Ox 98 F 86 18 183/81 H 95 12/04/19 13:17 12/04/19 13:17 12/04/19 13:17 12/04/19 13:17 12/04/19 13:17 Oxygen Delivery Method Room Air Weight: 182 lb 1.629 oz Body Mass Index (BMI) 32.8 General: Alert, Oriented x3, Cooperative, - - Appears uncomfortable HEENT: Atraumatic, PERRLA, EOMI, Normocephalic Oral: Dry Mucosa Neck: Supple, No JVD, Negative Carotid Bruits Lungs: Clear to auscultation, Normal air movement Cardiovascular: Regular rate, Regular Rhythm, Normal S1, Normal S2, No murmurs Abdomen: Bowel Sounds Present, Soft, Non Tender, Non-Distended Extremities: No clubbing, No cyanosis, No edema, Capillary Refill Less than 3 Seconds Skin: No rashes, No breakdown Musculoskeletal: No Tenderness to Palpation of Joints or Extremities Neurological: Cranial nerves II-XII grossly intact, Neuro grossly intact Psych/Mental Status: Normal Affect, Appropriate Laboratory Results 12/04/19 12:10: WBC 11.6 H, RBC 4.74, Hgb 15.4 H, Hct 45.5, MCV 96.0, MCH 32.5 H , MCHC 33.8, RDW Std Deviation 49.0 H, RDW Coeff of Ruma 13.9, Plt Count 340, MPV 9.0, Immature Gran % (Auto) 0.400, Neut % (Auto) 86.1 H, Lymph % (Auto) 6.2 L, [place] % (Auto) 7.0, Eos % (Auto) 0.0, Baso % (Auto) 0.3, Absolute Neuts (auto) 10.0 H, Absolute Lymphs (auto) 0.72 L, Nucleated RBC % 0 12/04/19 12:10: Sodium 131 L, Potassium 4.5, Chloride 98, Carbon Dioxide 27.0, Anion Gap 6, BUN 31 H, Creatinine 0.96, Estim Creat Clear Calc 33.89, Est GFR (MDRD) Af Amer 71, Est GFR (MDRD) Non-Af 59 L, BUN/Creatinine Ratio 32.3 H, Glucose 149 H, Calcium 9.7 12/04/19 12:10: Total Creatine Kinase 324 H Current Medications Sodium Chloride () 1,000 mls @ 15 mls/hr IV .Q48H [facility] Last Admin: 12/04/19 12:09 Dose: 15 mls/hr Documented by: Sodium Chloride () 1,000 mls @ 150 mls/hr IV .Q6H40M [facility] Last Admin: 12/04/19 13:12 Dose: 150 mls/hr Documented by: Assessment/Plan All Active Problems Back pain (Acute) Fall (Acute) Rhabdomyolysis (Acute) 1. Intractable back pain with recent compression fracture-see imaging. Recent kyphoplasty 11/23. Follows with Dr. Cohen. PRN pain regimen. PT/OT. Anticipate need for rehab. 2. Osteoarthritis-on methotrexate, leucovorin? Follows with Dr. Pereira. 3. Hypertension-elevated on admission, suspect secondary to pain. Continue home lisinopril regimen. PRN hydralazine for systolic blood pressure greater than 160. 4. GERD-continue omeprazole. 5. Depression-continue duloxetine regimen. DVT prophylaxis-Lovenox subcu. This patient was seen by GORDY Hicks under the supervision of Dr. Hancock.
--- NOTE | 2019-12-04 13:53 | NURSING ---
Juanis Sousa in room with pt. This nurse informed Juanis of pt's BP and HR. Pt rates pain 10/10 but her BP was also high in the ED. Pt did not take her BP medication this morning, because I was on the floor.
[2019-12-04] MEDS: 0.9% Normal Saline 1,000 ML 75 ML IV (15:17)
[2019-12-04] MEDS: oxyCODONE 5 MG Tablet PO (15:17)
[2019-12-04] MEDS: Acetaminophen 500 MG Tablet 1000 MG PO (15:39)
[2019-12-04] MEDS: hydrALAZINE 20 MG/ML Vial 10 MG IV ×2 (15:55→22:38)
[2019-12-04] MEDS: 0.9% Saline Lock 10 ML Syringe IV ×2 (22:15→22:38)
--- NOTE | 2019-12-04 22:20 | EKG12_ITS ---
Test Reason : CP ADMIT Blood Pressure : / mmHG Vent. Rate : 065 BPM Atrial Rate : 065 BPM P-R Int : 148 ms QRS Dur : 076 ms QT Int : 424 ms P-R-T Axes : 070 048 -19 degrees QTc Int : 440 ms Normal sinus rhythm Nonspecific T wave abnormality Abnormal ECG When compared with ECG of 06-DEC-2019 07:31, MANUAL COMPARISON REQUIRED, DATA IS UNCONFIRMED Confirmed by CONRADO MIRANDA, ZURI ([id number]), multimedia editor YANA PIERSON ([id number]) on 12/10/2019 11:01:15 AM Referred By: SONJA Confirmed By:ZURI CAMP MD
--- NOTE | 2019-12-04 22:37 | CT_ITS ---
STUDY: CT BRAIN WITHOUT CONTRAST REASON FOR EXAM: Female, 84 years old. AMS, FELL 1 DAY AGO, HERE FOR BACK PAIN X 5 WEEKS, RECENT KYPHOPLASTY RADIATION DOSAGE (If Supplied By Facility): CTDIvol = ( 44.99 ) mGy, DLP = ( 846.73 ) mGycm TECHNIQUE: Transaxial CT imaging of the brain was performed without administration of intravenous contrast material. Individualized dose optimization techniques were used for this CT. COMPARISON: 02/17/2013 CT head FINDINGS: Normal soft tissue structures. Normal calvarium. There is calcification of the cavernous carotid arteries. There is mild cerebral atrophy with widening of the extra-axial spaces and ventricular dilatation. There are areas of decreased attenuation within the white matter tracts of the supratentorial brain, consistent with microvascular disease changes. There is low-attenuation within the basal ganglia fairly similar to the prior study which includes the bilateral external capsules. There is punctate calcification compatible with the aging process. Is but a low attenuation within the left side of the demond suggesting prior lacunar infarcts stable since prior study. There is mild cerebellar atrophy. There is persistent atrophy appearance or encephalomalacia towards the vertex on the right. There is no intracranial hemorrhage. There are no findings of an acute ischemic infarction. Normal visualized paranasal sinuses. CT/Brain/Head without Contrast IMPRESSION: Atrophy , evidence of prior bilateral basal ganglia chronic small vessel ischemic change similar to the prior study. No visualized evidence of acute hemorrhage infarct or edema. Electronically Signed: Georgina Pedro MD at 23:49 EDT Tel , Service support ,
--- NOTE | 2019-12-04 23:01 | NURSING ---
DOCTOR OF DENTAL MEDICINE called to notify pt had called out and was complaining of feeling unwell at 2150hrs. On entering pt's room pt had one leg over the edge of the bed and was moaning. When this nurse asked what was wrong the patient could not tell me what was wrong. When asked if pt had pain she stated yes, and stated her head hurt. when asked if she felt nauseated pt stated yes. repositioned patient back in bed. pt moaned whilst laying the back of her bed down to reposition her. this nurse put back of bed back up to position it was before. vitals as charted. noticed IV was out and laying beside patient. this was replaced and pain/nausea meds given. pt would not tell this nurse her name or date of but asked for water. pt responded 'yes' when asked if her name was Claire Ray and date of 1935. After administering nausea medicine pt able to state where she was accurately and date/time. after medications given and assessment completed, pt asked if she was having a heart attack. this nurse asked if she was having chest pain to which she said yes. Pt would not answer if the pain radiated or when the pain started. would not answer what the pain was on a scale of 0-10/10. stated she had tingling/numbness if her feet but unable to state when this started. called respiratory for a stat EKG. notified Dr Chun of above events, orders as charted. chest pain and nausea now resolved but pt still c/o severe headache. hydralazine given for HTN, BP now normotensive. will cont to monitor.
--- NOTE | 2019-12-04 23:28 | NURSING ---
pt left for CT with PLANT HEALTH MANAGER
[2019-12-04] MEDS: Aspirin 325 MG Tablet PO (23:59)
[2019-12-04] MEDS: TICAGRELOR 90 MG TABLET 180 MG PO (23:59)
[2019-12-05] VITALS (23 sets, daily range): BP systolic 117–190; BP diastolic 45–92; PULSE 59–98; RESP 17–20; TEMP 36.4–36.9; O2SAT 92–98
--- NOTE | 2019-12-05 00:13 | NURSING ---
Troponin came back elevated. Dr Chun notified and saw patient. Decision to transfer to PCU. Handoff given to Caroline SOL. Being transferred at this time with SWETA Espinosa.
--- NOTE | 2019-12-05 00:16 | CCHN_ITS ---
Hospitalist Note Nurse called me for chest pain. Seen and examined. Patient is not a good historian she does not describe her chest pain well As far I could gather the history, chest pain is midsternal with radiation to back. Initially the patient was admitted for lower back pain, lumbar spine ongoing for last 5 weeks with recent compression fracture, new L4 and old compression fracture of L3, T12 with history of focal kyphosis and vertebroplasty, follows Dr. Cohen. She looks to me like mild short of breath. As per nursing staff she was also looked drowsy and complained of headache for which CT head without contrast was done which did not show new change. She had carotid duplex done in 2013 which shows less than 50% extracranial bilateral ICA. Last stress test was also in 2012 EKG shows the worsening V1 to V3. Previous EKG of March 2016 did not did not worsen in 1283. Troponin 2.220. Patient was administered to 325 mg aspirin, Brilinta 180 mg, started on IV heparin drip with bolus as per weight. Patient is transferred to PCU. Cycle troponin enzymes and repeat EKG. Discussed with human resources partner Dr. Adam. Started on metoprolol 25 mg p.o. twice daily, nitroglycerin 1 inch ointment every 6 hourly, and atorvastatin 40 mg daily at bedtime. Patient is already on lisinopril 20 mg daily. Discontinue celecoxib and enoxaparin 40 mg subcu dose. Lipid profile tomorrow a.m. Plan to do echo and consider cardiac cath if patient agrees. Total time of the visit including total time spent in counseling or coordination of care, (more than 50% of the total time, spent in obtaining medical information from nurses and other ancillary care providers), discussion with mergers and acquisitions consultant, review of labs and imaging is 30 minutes. Inpatient E&M: 33780 Subs Hosp L2
[2019-12-05] MEDS: 0.9% Saline Lock 10 ML Syringe IV ×6 (00:36→22:46)
[2019-12-05] MEDS: Morphine 2 MG/ML Syringe IV ×2 (00:36→04:48)
--- NOTE | 2019-12-05 00:48 | NURSING ---
Tried to call sonPrakash, to inform of transfer. No answer- voicemail left to call this RN back.
[2019-12-05] MEDS: 0.9% Normal Saline 1,000 ML 75 ML IV ×2 (01:03→14:04)
[2019-12-05] MEDS: Atorvastatin Calcium 40 MG Tablet PO ×2 (01:21→22:25)
[2019-12-05] MEDS: Metoprolol Tartrate 25 MG Tablet PO ×3 (01:21→22:25)
[2019-12-05 01:28] LABS: International Normalized Ratio 1.1; Prothrombin Time (Protime)PT. 13.3 SECONDS (11.7-14.9)
[2019-12-05] MEDS: Nitroglycerin Oint 1 INCH PACKET TRANSDERM. (01:28)
[2019-12-05 01:29] LABS: Partial Thromboplast Time 34.4 Seconds (24.1-36.2)
[2019-12-05] MEDS: Heparin Injection (Vial) 5,000 UNIT/ML VIAL 5000 UNIT IV (01:31)
[2019-12-05 02:30] LABS: Hematocrit 42.1 % (37-47); Mean Corp Hgb Conc 33.3 g/dL (32-36); Mean Corpuscular Hgb 32.6 pg (27.0-32.0); Mean Corpuscular Volume 98.1 fL (81-99); Mean Platelet Vol. 8.8 fl (6.2-12.0); Platelet Count 315 K/mm3 (150-450); RBC Distribution Width CV 14.6 % (11.6-14.6); RBC Distribution Width SD 52.3 fl (35.1-43.9); Red Blood Count 4.29 M/mm3 (4.2-5.4); White Blood Count 8.2 K/mm3 (4.4-11.0)
--- NOTE | 2019-12-05 02:30 | EKG12_ITS ---
Test Reason : CP Blood Pressure : / mmHG Vent. Rate : 069 BPM Atrial Rate : 069 BPM P-R Int : 154 ms QRS Dur : 082 ms QT Int : 552 ms P-R-T Axes : 092 079 071 degrees QTc Int : 591 ms Normal sinus rhythm Nonspecific T wave abnormality Abnormal ECG When compared with ECG of 06-DEC-2019 05:29, MANUAL COMPARISON REQUIRED, DATA IS UNCONFIRMED Confirmed by CONRADO MIRANDA, ZURI ([id number]), department editor YANA PIERSON ([id number]) on 12/10/2019 11:07:48 AM Referred By: SONJA Confirmed By:ZURI CAMP MD
[2019-12-05 02:56] LABS: ALB/GLOB Ratio 0.8 RATIO (0.9-2.4); AST(SGOT) 30 U/L (15-37); Alanine Aminotransfer ALT/SGPT 25 U/L (13-56); Alkaline Phosphatase 211 U/L (45-117); Anion Gap 5 (5-15); BUN 25 mg/dL (7-18); BUN/Creat Ratio 29.8 RATIO (10-20); Chloride 102 mmol/L (98-107); Cholesterol 191 mg/dL (200); Creatinine, Serum 0.84 mg/dL (0.55-1.02); EST Glomerular Filtration Rate 69 mL/min (>60); Est Glom Filt Rate - Afr Amer 83 mL/min (>60); Estimated Creatinine Clearance 38.73 ml/min; Globulin 3.7 g/dL (2.2-4.2); Glucose 149 mg/dL (74-106); High Density Lipoprotein 60 mg/dL; Potassium 4.5 mmol/L (3.5-5.1); Protein, Total 6.7 g/dL (6.4-8.2); Sodium Level 133 mmol/L (136-145); Thyroid Stim Hormone (TSH) 1.78 uIU/mL (0.358-3.74); Triglycerides 68 mg/dL; Very Low Density Lipoprotein 14 mg/dL (5-40)
[2019-12-05] MEDS: Acetaminophen 500 MG Tablet 1000 MG PO ×3 (04:54→22:25)
--- NOTE | 2019-12-05 05:55 | ECHOCS_ITS ---
Reason For Study: CHEST PAIN/ NSTEMI Procedure This was a 2D Doppler, Color Flow transthoracic echocardiogram. The study was technically difficult. Contrast injection was performed. Pt supine. Exam performed portable in patient room. Left Ventricle Normal LV size. Left ventricular systolic function is normal. The estimated ejection fraction is 65 %. Diastolic function is indeterminate. No regional wall motion abnormalities noted. Right Ventricle Normal RV size. Normal systolic function. Atria The left atrium is mildly enlarged. Normal right atrium. No doppler evidence for ASD. Mitral Valve There is no mitral annular calcification. Normal mitral valve. Mild (1+) mitral valve insufficiency. Tricuspid Valve Normal tricuspid valve. Mild tricuspid valve insufficiency. Right ventricular systolic pressure estimated to be 46 mmHg. Aortic Valve Trisinus/trileaflet aortic valve. Mild focal aortic valve calcification. Mild aortic stenosis. Trivial aortic valve insufficiency. Pulmonic Valve The pulmonic valve is not well visualized. Great Vessels Normal sized aortic root. Calcified aortic root. Pericardium/Pleural No pericardial effusion. Medication Diluted definity 1.5ml given slow IV push to enhance endocardial definition. MMode/2D Measurements & Calculations LVIDd: 3.5 cm IVSd: 0.85 cm LVOT diam: 2.0 cm LVIDs: 2.5 cm LVPWd: 0.93 cm RVDd: 3.8 cm FS: 28.4 % LVOT area: 3.0 cm2 Ao root diam: 3.5 cm LAV(MOD-bp): 36.8 ml LVAd ap4: 24.0 cm2 LAV(MOD-bp) Indexed: 20.3 ml/m2 EDV(MOD-sp4): 61.6 ml LAV(MOD-sp2): 32.2 ml EDV(sp4-el): 64.2 ml LAV(MOD-sp4): 37.8 ml LVAs ap4: 13.0 cm2 ESV(MOD-sp4): 22.5 ml ESV(sp4-el): 23.6 ml EF(MOD-sp4): 63.4 % EF(sp4-el): 63.2 % SV(MOD-sp4): 39.0 ml SV(sp4-el): 40.6 ml LA A4 area: 17.0 cm2 LA dimension(2D): 3.9 cm RA A4 area: 11.6 cm2 Time Measurements MV dec time: 0.25 sec Doppler Measurements & Calculations MV E max yosi: 49.3 cm/sec Lat Peak E' Yosi: 3.9 cm/sec Med Peak E' Yosi: 3.7 cm/sec MV A max yosi: 88.1 cm/sec E/E' lat: 12.5 E/E' med: 13.4 MV E/A: 0.56 Ao V2 max: 176.5 cm/sec LV V1 max: 99.7 cm/sec TR max yosi: 307.8 cm/sec Ao max P.5 mmHg LV V1 max P.0 mmHg TR max P.1 mmHg Ao V2 mean: 129.5 cm/sec Ao mean P.4 mmHg Ao V2 VTI: 40.0 cm ÁNGELA(V,D): 1.7 cm2 Interpretation Summary The study was technically difficult. Contrast injection was performed. Left ventricular systolic function is normal. The estimated ejection fraction is 65 %. The left atrium is mildly enlarged. Mild (1+) mitral valve insufficiency. Mild tricuspid valve insufficiency. Mild aortic stenosis. Trivial aortic valve insufficiency. Calcified aortic root. Right ventricular systolic pressure estimated to be 46 mmHg. Diastolic function is indeterminate. Ordering Physician: Harmeet Chun Referring Physician: TANIA PERKINS Performed By: Paige Bonilla, RDCS, RVT
[2019-12-05] MEDS: hydrALAZINE 20 MG/ML Vial 10 MG IV ×2 (06:13→14:31)
[2019-12-05] MEDS: Nitroglycerin Oint 1 INCH PACKET 2 INCH TRANSDERM. ×3 (06:17→17:12)
[2019-12-05] MEDS: TICAGRELOR 90 MG TABLET PO (06:42)
[2019-12-05] MEDS: Aspirin E.C. 81 MG Tablet PO (06:42)
[2019-12-05 06:44] LABS: CPK Total, Creatine Kinase 175 U/L (26-192)
[2019-12-05] MEDS: oxyCODONE 5 MG Tablet PO (08:58)
[2019-12-05] MEDS: Lisinopril 20 MG Tablet PO (08:58)
--- NOTE | 2019-12-05 09:56 | CT_ITS ---
STUDY: CT ABDOMEN AND PELVIS WITHOUT CONTRAST REASON FOR EXAM: Female, 84 years old. Abdominal pain, intractable low back pain and rhabdomyolysis. History of kyphoplasty RADIATION DOSAGE (If Supplied By Facility): CTDIvol = ( 14.96 ) mGy, DLP = ( 680.08 ) mGycm TECHNIQUE: Transaxial images were obtained from the dome of the diaphragm to the symphysis pubis without oral contrast, and without intravenous contrast. Sagittal and coronal images were reconstructed. Abdominal Individualized dose optimization techniques were used for this CT. COMPARISON: 06/04/2013 FINDINGS: The visualized lung bases demonstrate trace of bilateral pleural effusions and atelectatic changes both lower lobes. The visualized portions of the heart are within normal limits. Mild diffuse fatty infiltration of the liver. No focal lesion is seen. Normal gallbladder and extrahepatic biliary system. Normal spleen. Normal pancreas. Normal bilateral adrenal glands. Normal right kidney. Small cyst in the upper pole of the left kidney. No evidence of hydronephrosis. There is a small hiatal hernia. Normal small intestine. Fecal retention. No evidence for acute diverticulitis. The appendix is visualized and appears normal. There is diffuse atherosclerotic calcification of the abdominal aorta with elongation and tortuosity, but without a demonstrated aneurysm. Normal inferior vena cava. Normal retroperitoneum. Szymanski catheter in the bladder. The urinary bladder is not distended. Pockets of air within the bladder likely due to catheterization. Calcifications in the uterus. Persistent right adnexal cyst cystic lesion unchanged or may be slightly larger in size. Normal abdominal wall. Kyphoplasty T12 and L2. Increased density and compression fracture of L3 vertebra unchanged suspicious for metastatic disease. CT/Abdomen/Pelvis without Cont IMPRESSION: No demonstrated acute process. Compression fracture of L3 vertebra suspicious for metastatic disease. Electronically Signed: Dylon Goodman MD at 11:59 EDT Tel , Service support ,
[2019-12-05 10:12] LABS: Partial Thromboplast Time > 250.0 Seconds (24.1-36.2)
--- NOTE | 2019-12-05 10:24 | CON.PCM_ITS ---
Problem List (1) NSTEMI (non-ST elevated myocardial infarction) Status: Acute (2) Hypertension Status: Chronic (3) GERD (gastroesophageal reflux disease) Status: Chronic (4) Back pain Status: Acute (5) Rhabdomyolysis Status: Acute Reason for Consult Date of Consultation: 12/05/19 History of Present Illness: The patient is a 84 year old white female who has been living alone with no report of any past cardiac history who is being referred for concerns of an ongoing non-ST segment elevation KS based upon symptoms, cardiac enzyme change, and ECG change. The patient was at home with concerns of chronic back discomfort which she has required pain management procedures to assist with. She presented to the hospital for concerns of back discomfort and was found to have a new L4 compression fracture. Her CPK level was elevated secondary to the patient lying on the floor to try and gain relief of her discomfort. Since her hospitalization she began to complain of chest discomfort and shortness of breath. She was evaluated by internal medicine. She was noted to have abnormal troponin I levels and an ECG that had demonstrated a T wave abnormality potentially compatible with myocardial ischemia in the anterior and possibly inferior distributions compared to a remote ECG. She began medical management for an acute coronary syndrome. Cardiology was consulted to evaluate the patient. At the time of the cardiology consultation the patient complained of a variety of symptoms including not only chest discomfort and back discomfort but also abdominal discomfort. She had noted an element of shortness of breath and dyspnea. There was no report of nausea or emesis or diaphoresis. The patient appeared to be somewhat unsure as to her history and the ongoing events. There was a question as to whether or not this could be related the patient's narcotic analgesic use. The patient had undergone a head/brain CT earlier this day with report of no acute COBOL APPLICATION DEVELOPER events. Patient is pending further evaluation of her abdominal discomfort with an abdominal/pelvic CT. The [facility] hospitalist team consulted the patient's son via telephone and he reported that the patient has been living alone and has been awake and alert and able to care for herself and that he would want to proceed with further cardiac evaluation including cardiac catheterization. [] Past Medical History Allergies/Adverse Reactions: Allergies acetaminophen [From Vicodin] Adverse Reaction (Verified 12/04/19 11:19) Vomiting hydrocodone bitartrate [From Vicodin] Adverse Reaction (Verified 12/04/19 11:19) Vomiting oxycodone HCl [From Percocet] Adverse Reaction (Verified 12/04/19 11:19) Vomiting Home Medications: Ambulatory Orders Medication Instructions Recorded Temazepam [Restoril] 15 mg PO QHS PRN PRN 05/14/13 Methotrexate 15 mg PO TU 03/14/16 leucovorin tablet 15 mg PO WE 03/14/16 traMADol [Ultram (G)] 50 mg PO Q6H PRN PRN 03/14/16 Duloxetine HCl 60 mg PO DAILY 10/31/19 Oxybutynin [Ditropan] 5 mg PO DAILY 10/31/19 Folic Acid 1 mg PO DAILY 12/03/19 Omeprazole 20 mg PO DAILY PRN PRN 12/03/19 Oxycodone HCl/Acetaminophen 1 tab PO Q6H PRN PRN #10 tab 12/03/19 [Percocet 5/325] Calcium Carbonate/Vitamin D3 1 tab PO DAILY 12/04/19 [Calcium 600-Vit D3 200 Tablet] Denosumab [Prolia] 60 mg IN .[id number] 12/04/19 Lisinopril [Zestril] 20 mg PO BREAKFAST 12/04/19 Past Medical History (Chronic Problems): Chronic Problems Rheumatoid arthritis (Chronic) Hypertension (Chronic) GERD (gastroesophageal reflux disease) (Chronic) Surgical History: tonsillectomy, - - Kyphoplasty Psychiatric History: Depression 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 Paternal History Items: Diabetes Lives: Alone Smoking Status: Never smoker Alcohol: Occasional Drugs: None Review of Systems - Review of Systems General: Denies: Fever, Night Sweats, Fatigue Cardiovascular: Reports: Chest Discomfort, Chest Discomfort at Rest, Shortness of Breath, Shortness of Breath at Rest. Denies: Orthopnea, PND, Peripheral Edema, Palpitations, Lightheadedness, Dizziness, Near Syncope, Syncope Respiratory: Reports: Shortness of Breath. Denies: Cough, Sputum Production, Hemoptysis Gastrointestinal: Reports: Abdominal Discomfort. Denies: Hematemesis, Hematochezia, Melena Genitourinary: Denies: Dysuria, Hematuria Skin: Denies: Rash Subjectve: Is an 84-year-old white female who appears somewhat confused and uncomfortable at this time. Objective: Vital Signs Temp Pulse Resp BP Pulse Ox 97.8 F 71 20 H 177/70 H 97 12/05/19 08:50 12/05/19 08:58 12/05/19 08:50 12/05/19 08:50 12/05/19 08:50 Oxygen Flow Rate (L/min) 1 Oxygen Delivery Method Nasal Cannula Weight: 177 lb Body Mass Index (BMI) 32.3 Intake and Output for Last 24 Hours 12/03/19 12/04/19 12/05/19 23:59 23:59 23:59 Intake Total 792.0 / 1445.75 653.75 / 653.75 Output Total 600 / 600 Balance 192.0 / 845.75 653.75 / 653.75 General: Awake, Ill Appearing HEENT: Atraumatic, Normocephalic, PERRL, EOMI, Sclera Non Icteric Neck: No JVD Lungs: Clear to auscultation Cardiovascular: Regular Rhythm, Normal S1, Normal S2 Abdomen: Bowel Sounds Present, - - Epigastric tenderness to palpation Extremities: No edema Psych/Mental Status: Restless 12/04/19 12:10: WBC 11.6 H, RBC 4.74, Hgb 15.4 H, Hct 45.5, MCV 96.0, MCH 32.5 H , MCHC 33.8, Plt Count 340, MPV 9.0, Immature Gran % (Auto) 0.400, Neut % (Auto) 86.1 H, Lymph % (Auto) 6.2 L, Wagoner % (Auto) 7.0, Eos % (Auto) 0.0, Baso % (Auto) 0.3, Absolute Neuts (auto) 10.0 H, Nucleated RBC % 0 12/04/19 12:10: Sodium 131 L, Potassium 4.5, Chloride 98, Carbon Dioxide 27.0, Anion Gap 6, BUN 31 H, Creatinine 0.96, Est GFR (MDRD) Af Amer 71, Est GFR (MDRD) Non-Af 59 L, BUN/Creatinine Ratio 32.3 H, Glucose 149 H, Calcium 9.7 12/04/19 23:20: Troponin I 2.220 H* 12/05/19 01:10: PT 13.3, INR 1.1, APTT 34.4 12/05/19 02:20: WBC 8.2, RBC 4.29, Hgb 14.0, Hct 42.1, MCV 98.1, MCH 32.6 H, MCHC 33.3, Plt Count 315, MPV 8.8 12/05/19 02:20: Sodium 133 L, Potassium 4.5, Chloride 102, Carbon Dioxide 26.0, Anion Gap 5, BUN 25 H, Creatinine 0.84, Est GFR (MDRD) Af Amer 83, Est GFR (MDRD) Non-Af 69, BUN/Creatinine Ratio 29.8 H, Glucose 149 H, Calcium 9.0, Total Bilirubin 0.60, Troponin I 2.110 H*, Triglycerides 68, Cholesterol 191, LDL Cholesterol 117, VLDL Cholesterol 14, HDL Cholesterol 60 12/05/19 05:30: Troponin I 2.480 H* 12/05/19 08:06: APTT > 250.0 H* 12/05/19 08:06: Troponin I 2.720 H* Rhythm: Sinus rhythm EKG: As noted above ECHO: Pending Assessment/Plan 1. Non-ST segment elevation [place] The patient has been described as having [place] and waning symptoms of chest discomfort and shortness of breath superimposed upon her back discomfort and now abdominal discomfort. Her cardiac enzymes have been positive and have trended upward. Her ECG does demonstrate a T wave abnormality change compared to remote ECG from approximately 7 years ago. An echocardiogram is pending as well as an abdominal/pelvic CT scan. The patient has been placed on medical therapy for an acute coronary syndrome. The [facility] hospitalist team has discussed the patient's case with her son and has reported that the patient son would want her to proceed with further evaluation with diagnostic cardiac catheterization barring contraindications. At the moment the patient will continue her medical therapy and her noncardiac evaluation of her ongoing abdominal discomfort. Depending upon the patient's course and findings she will need to be considered for further evaluation with diagnostic cardiac catheterization. 2. Hypertension The patient will need to continue medical management as deemed appropriate. 3. GERD The patient reportedly has a history of GERD. She will continue evaluation care by internal medicine. 4. Back pain The patient has a history of chronic back related discomfort and chronic back management related procedures. She now has an L4 compression fracture which may be contributing to her acute back pain. She will continue evaluation care per internal medicine. 5. Rhabdomyolysis The patient did present with an elevated CPK level. This was attributed to rhabdomyolysis secondary the patient lying supine on the floor for period of time. Comment: The patient's case has been discussed and reviewed with the patient as well as with the [facility] hospitalist team. Procedure Criteria Procedure Type: Elective COVID Risk Discussion: The surgeon/proceduralist and patient have discussed in detail the risk of exposure to and/or potential harm posed by the COVID-19 virus with having a surgery/procedure at this time versus the risk of delaying the surgery/procedure. It is not possible to know either the risk of delaying the surgery or procedure or chance of getting an infection with perfect accuracy, but a joint decision was made between the patient and the surgeon/proceduralist to proceed at this time with the scheduled surgery/procedure as indicated on the consent form.
--- NOTE | 2019-12-05 10:37 | PN_ITS ---
<Juanis Sousa - Last Filed: 12/05/19 10:54> Patient Problems: Active and Suspected Problems Back pain (Acute) Fall (Acute) Rhabdomyolysis (Acute) NSTEMI (non-ST elevated myocardial infarction) (Acute) Subjective: Patient seen and examined. Per nursing report, patient complains of abdominal pain this morning. Patient somnolent during exam. Confused and difficult to arouse during exam. Spoke with patient's son, Prakash who is healthcare power of criminal attorney and he would like to proceed with cardiac catheterization. - Physical Exam Vitals/I&O's: Vital Signs Temp Pulse Resp BP Pulse Ox 97.8 F 71 20 H 177/70 H 97 12/05/19 08:50 12/05/19 08:58 12/05/19 08:50 12/05/19 08:50 12/05/19 08:50 Oxygen Flow Rate (L/min) 1 Oxygen Delivery Method Nasal Cannula Weight: 177 lb Body Mass Index (BMI) 32.3 Intake and Output for Last 24 Hours 12/03/19 12/04/19 12/05/19 23:59 23:59 23:59 Intake Total 792.0 / 1445.75 653.75 / 653.75 Output Total 600 / 600 Balance 192.0 / 845.75 653.75 / 653.75 General: - - Drowsy, no apparent distress HEENT: Atraumatic, PERRLA, EOMI, Normocephalic Oral: Dry Mucosa Neck: Supple, No JVD, Negative Carotid Bruits Lungs: Clear to auscultation, Diminished Cardiovascular: Regular rate, No murmurs Abdomen: Bowel Sounds Present, Soft, Non Tender, Non-Distended, Tender Extremities: No clubbing, No cyanosis, No edema, Capillary Refill Less than 3 Seconds Skin: No rashes, No breakdown Musculoskeletal: No Tenderness to Palpation of Joints or Extremities Neurological: Cranial nerves II-XII grossly intact, Neuro grossly intact Psych/Mental Status: Normal Affect, Appropriate Laboratory Results 12/04/19 12:10: WBC 11.6 H, RBC 4.74, Hgb 15.4 H, Hct 45.5, MCV 96.0, MCH 32.5 H , MCHC 33.8, RDW Std Deviation 49.0 H, RDW Coeff of Ruma 13.9, Plt Count 340, MPV 9.0, Immature Gran % (Auto) 0.400, Neut % (Auto) 86.1 H, Lymph % (Auto) 6.2 L, [place] % (Auto) 7.0, Eos % (Auto) 0.0, Baso % (Auto) 0.3, Absolute Neuts (auto) 10.0 H, Absolute Lymphs (auto) 0.72 L, Nucleated RBC % 0 12/04/19 12:10: Sodium 131 L, Potassium 4.5, Chloride 98, Carbon Dioxide 27.0, Anion Gap 6, BUN 31 H, Creatinine 0.96, Estim Creat Clear Calc 33.89, Est GFR (MDRD) Af Amer 71, Est GFR (MDRD) Non-Af 59 L, BUN/Creatinine Ratio 32.3 H, Glucose 149 H, Calcium 9.7 12/04/19 12:10: Total Creatine Kinase 324 H 12/04/19 23:20: Troponin I 2.220 H* 12/05/19 01:10: PT 13.3, INR 1.1, APTT 34.4 12/05/19 02:20: WBC 8.2, RBC 4.29, Hgb 14.0, Hct 42.1, MCV 98.1, MCH 32.6 H, MCHC 33.3, RDW Std Deviation 52.3 H, RDW Coeff of Ruma 14.6, Plt Count 315, MPV 8.8 12/05/19 02:20: Sodium 133 L, Potassium 4.5, Chloride 102, Carbon Dioxide 26.0, Anion Gap 5, BUN 25 H, Creatinine 0.84, Estim Creat Clear Calc 38.73, Est GFR (MDRD) Af Amer 83, Est GFR (MDRD) Non-Af 69, BUN/Creatinine Ratio 29.8 H, Glucose 149 H, Calcium 9.0, Total Bilirubin 0.60, AST 30, ALT 25, Alkaline Phosphatase 211 H, Troponin I 2.110 H*, Total Protein 6.7, Albumin 3.0 L, Globulin 3.7, Albumin/Globulin Ratio 0.8 L, Triglycerides 68, Cholesterol 191, LDL Cholesterol 117, VLDL Cholesterol 14, HDL Cholesterol 60, TSH 1.78 12/05/19 05:30: Total Creatine Kinase 175, Troponin I 2.480 H* 12/05/19 08:06: APTT > 250.0 H* 12/05/19 08:06: Troponin I 2.720 H* Current Medications Acetaminophen (Tylenol) 1,000 mg PO Q8 [facility] Last Admin: 12/05/19 04:54 Dose: 1,000 mg Documented by: Aspirin (Ecotrin) 81 mg PO DAILY@0800 [facility] Last Admin: 12/05/19 06:42 Dose: 81 mg Documented by: Atorvastatin Calcium (Lipitor) 40 mg PO QHS [facility] Last Admin: 12/05/19 01:21 Dose: 40 mg Documented by: Calcium/Vitamin D (Os-Srinivasa 500mg + D) 1 tablet PO DAILYCM [facility] Last Admin: 12/05/19 10:07 Dose: Not Given Documented by: Duloxetine HCl (Cymbalta) 60 mg PO DAILY [facility] Last Admin: 12/05/19 10:08 Dose: Not Given Documented by: Folic Acid (Folic Acid) 1 mg PO DAILYCM [facility] Last Admin: 12/05/19 10:07 Dose: Not Given Documented by: Heparin Sodium (Porcine) (Heparin Na) 0 unit IV UD PRN; Protocol PRN Reason: NOMOGRAM Hydralazine HCl (Apresoline Iv) 10 mg IV Q4H PRN PRN PRN Reason: BLOOD PRESSURE Last Admin: 12/05/19 06:13 Dose: 10 mg Documented by: Sodium Chloride () 250 mls @ 15 mls/hr IV .[id number] PRN PRN Reason: Saline Flush Sodium Chloride () 250 mls @ 15 mls/hr IV .[id number] PRN PRN Reason: Additional IVPB Infusion Sodium Chloride () 1,000 mls @ 75 mls/hr IV .[id number] [facility] Last Admin: 12/05/19 01:03 Dose: 75 mls/hr Documented by: Heparin Sodium/Sodium Chloride () 25,000 unit in 250 mls @ 11 mls/hr IV .[id number] [facility]; Protocol Last Admin: 12/05/19 01:36 Dose: 1,100 units/hr, 11 mls/hr Documented by: Ceftriaxone Sodium 2 gm/ (Sodium Chloride) 50 mls @ 100 mls/hr IV Q24 [facility] Lisinopril (Zestril) 20 mg PO BREAKFAST [facility] Last Admin: 12/05/19 08:58 Dose: 20 mg Documented by: Metoprolol Tartrate (Lopressor (Beta Duran)) 25 mg PO BID [facility] Last Admin: 12/05/19 08:58 Dose: 25 mg Documented by: Morphine Sulfate () 2 - 4 mg IV Q3H PRN PRN Reason: PAIN 1-10/10 Last Admin: 12/05/19 04:48 Dose: 2 mg Documented by: Nitroglycerin (Nitrobid) 2 inch TRANSDERM. Q6H [facility] Last Admin: 12/05/19 06:17 Dose: 2 inch Documented by: Ondansetron HCl (Zofran) 4 mg IV Q8H PRN PRN PRN Reason: NAUSEA/VOMITING Last Admin: 12/04/19 22:04 Dose: 4 mg Documented by: Oxycodone HCl (Oxyir) 5 mg PO 4X/DAY PRN PRN PRN Reason: Pain Score 1-10/10 Pantoprazole Sodium (Protonix) 20 mg PO DAILY PRN PRN Reason: GERD SYMPTOMS Sodium Chloride () 10 - 40 ml IV UD PRN PRN Reason: SALINE FLUSH Last Admin: 12/05/19 06:16 Dose: 10 ml Documented by: Temazepam (Restoril) 15 mg PO QHS PRN PRN PRN Reason: SLEEP Ticagrelor (Brilinta) 90 mg PO BID [facility] Last Admin: 12/05/19 06:42 Dose: 90 mg Documented by: Tolterodine Tartrate (Detrol La) 2 mg PO DAILY [facility] Last Admin: 12/05/19 10:08 Dose: Not Given Documented by: Medical Necessity - Tobacco Use Smoking Status: Never smoker Assessment/Plan All Active Problems Back pain (Acute) Fall (Acute) Rhabdomyolysis (Acute) NSTEMI (non-ST elevated myocardial infarction) (Acute) 1. NSTEMI-cardiology following. On heparin drip. Continue aspirin, statin, metoprolol, Brilinta. Plan for cardiac catheterization pending abdominal pain work-up. Echocardiogram pending. 2. Intractable back pain with recent compression fracture-see imaging. Recent kyphoplasty 11/23. Follows with Dr. Cohen. PRN pain regimen. PT/OT. Anticipate need for rehab at [place]. 3. Abdominal pain-unclear etiology. Patient is poor historian due to confusion. CT of abdomen and pelvis pending. Urinalysis sent. 4. Acute encephalopathy-patient alert and oriented at baseline. Suspect secondary to narcotic regimen. Brain CT unremarkable for acute process. UA pending. Scheduled opioid regimen discontinued and will use as needed only. 5. Osteoarthritis-on methotrexate, leucovorin? Follows with Dr. Pereira. 6. Hypertension-remains elevated. Continue home lisinopril regimen. PRN hydralazine for systolic blood pressure greater than 160. 7. GERD-continue omeprazole. 8. Depression-continue duloxetine regimen. DVT prophylaxis-Heparin drip This patient was seen by GORDY Hicks under the supervision of Dr. Dr. Lyles. <[place] - Last Filed: 12/05/19 13:08> - Physical Exam Vitals/I&O's: Vital Signs Temp Pulse Resp BP Pulse Ox 97.8 F 59 L 20 H 177/70 H 97 12/05/19 08:50 12/05/19 12:00 12/05/19 08:50 12/05/19 08:50 12/05/19 08:50 Oxygen Flow Rate (L/min) 1 Oxygen Delivery Method Nasal Cannula Weight: 80.286 kg Body Mass Index (BMI) 32.3 Intake and Output for Last 24 Hours 12/03/19 12/04/19 12/05/19 23:59 23:59 23:59 Intake Total 792.0 / 1445.75 1547.65 / 1547.65 Output Total 600 / 600 Balance 192.0 / 845.75 1547.65 / 1547.65 Laboratory Results 12/04/19 12:10: Total Creatine Kinase 324 H 12/04/19 23:20: Troponin I 2.220 H* 12/05/19 01:10: PT 13.3, INR 1.1, APTT 34.4 12/05/19 02:20: WBC 8.2, RBC 4.29, Hgb 14.0, Hct 42.1, MCV 98.1, MCH 32.6 H, MCHC 33.3, RDW Std Deviation 52.3 H, RDW Coeff of Ruma 14.6, Plt Count 315, MPV 8.8 12/05/19 02:20: Sodium 133 L, Potassium 4.5, Chloride 102, Carbon Dioxide 26.0, Anion Gap 5, BUN 25 H, Creatinine 0.84, Estim Creat Clear Calc 38.73, Est GFR (MDRD) Af Amer 83, Est GFR (MDRD) Non-Af 69, BUN/Creatinine Ratio 29.8 H, Glucose 149 H, Calcium 9.0, Total Bilirubin 0.60, AST 30, ALT 25, Alkaline Phosphatase 211 H, Troponin I 2.110 H*, Total Protein 6.7, Albumin 3.0 L, Globulin 3.7, Albumin/Globulin Ratio 0.8 L, Triglycerides 68, Cholesterol 191, LDL Cholesterol 117, VLDL Cholesterol 14, HDL Cholesterol 60, TSH 1.78 12/05/19 05:30: Total Creatine Kinase 175, Troponin I 2.480 H* 12/05/19 08:06: APTT > 250.0 H* 12/05/19 08:06: Troponin I 2.720 H* 12/05/19 08:06: Lipase 32 L 12/05/19 10:35: Urine Color Straw, Urine Clarity Clear, Urine pH 6.0, Ur Specific [place] 1.020, Urine Protein 30 H, Urine Glucose (UA) Normal, Urine Ketones 150 H, Urine Occult Blood Negative, Urine Nitrite Negative, Urine Bilirubin Negative, Urine Urobilinogen Normal, Ur Leukocyte Esterase Negative, Urine RBC 0-5 SEEN, Urine WBC 0-5 SEEN, Ur Squamous Epith Cells 0 SEEN, Urine Bacteria 0 SEEN, Urine Mucus 0 SEEN 12/05/19 11:23: Troponin I 2.580 H* Current Medications Acetaminophen (Tylenol) 1,000 mg PO Q8 [facility] Last Admin: 12/05/19 04:54 Dose: 1,000 mg Documented by: Aspirin (Ecotrin) 81 mg PO DAILY@0800 [facility] Last Admin: 12/05/19 06:42 Dose: 81 mg Documented by: Atorvastatin Calcium (Lipitor) 40 mg PO QHS [facility] Last Admin: 12/05/19 01:21 Dose: 40 mg Documented by: Calcium/Vitamin D (Os-Srinivasa 500mg + D) [facility] Last Admin: 12/05/19 10:07 Dose: Not Given Documented by: Duloxetine HCl (Cymbalta) 60 mg PO DAILY [facility] Last Admin: 12/05/19 10:08 Dose: Not Given Documented by: Folic Acid (F[facility] Acid) [facility] Last Admin: 12/05/19 10:07 Dose: Not Given Documented by: Heparin Sodium (Porcine) (Heparin Na) 0 unit IV UD PRN; Protocol PRN Reason: NOMOGRAM Hydralazine HCl (Apresoline Iv) 10 mg IV Q4H PRN PRN PRN Reason: BLOOD PRESSURE Last Admin: 12/05/19 06:13 Dose: 10 mg Documented by: Sodium Chloride () 250 mls @ 15 mls/hr IV .[id number] PRN PRN Reason: Saline Flush Sodium Chloride () 250 mls @ 15 mls/hr IV .[id number] PRN PRN Reason: Additional IVPB Infusion Sodium Chloride () 1,000 mls @ 75 mls/hr IV .[id number] [facility] Last Infusion: 12/05/19 12:07 Dose: 75 mls/hr Documented by: Heparin Sodium/Sodium Chloride () 25,000 unit in 250 mls @ 11 mls/hr IV .[id number] [facility]; Protocol Last Titration: 12/05/19 10:15 Dose: 0 units/hr, 0 mls/hr Documented by: Pantoprazole Sodium 40 mg/ (Sodium Chloride) 110 mls @ 330 mls/hr IV Q12 [facility] Lisinopril (Zestril) 20 mg PO BREAKFAST [facility] Last Admin: 12/05/19 08:58 Dose: 20 mg Documented by: Metoprolol Tartrate (Lopressor (Beta Duran)) 25 mg PO BID [facility] Last Admin: 12/05/19 08:58 Dose: 25 mg Documented by: Nitroglycerin (Nitrobid) 2 inch TRANSDERM. Q6H [facility] Last Admin: 12/05/19 11:39 Dose: 2 inch Documented by: Ondansetron HCl (Zofran) 4 mg IV Q8H PRN PRN PRN Reason: NAUSEA/VOMITING Last Admin: 12/04/19 22:04 Dose: 4 mg Documented by: Oxycodone HCl (Oxyir) 5 mg PO 4X/DAY PRN PRN PRN Reason: Pain Score 1-10/10 Sodium Chloride () 10 - 40 ml IV UD PRN PRN Reason: SALINE FLUSH Last Admin: 12/05/19 06:16 Dose: 10 ml Documented by: Temazepam (Restoril) 15 mg PO QHS PRN PRN PRN Reason: SLEEP Ticagrelor (Brilinta) 90 mg PO BID [facility] Last Admin: 12/05/19 06:42 Dose: 90 mg Documented by: Tolterodine Tartrate (Detrol La) 2 mg PO DAILY [facility] Last Admin: 12/05/19 10:08 Dose: Not Given Documented by: Assessment/Plan This patient was seen in conjunction with Juanis Sousa NP. I have independently interviewed and examined the patient and reviewed pertinent historical, laboratory, and other data. Please refer to her note for patient's presentation, findings, and recommendations. Patient was seen and examined. She appears drowsy. Complains of lower abdominal discomfort. Patient extubated generalized abdominal tenderness with some guarding but no rebound tenderness. It appeared difficult for patient to catheterize her pain on account of lethargy. She could not say whether it came from her back and radiated to the abdomen or what I was related to urinary symptoms. This was present in the suprapubic and also in the epigastric region. CT of the abdomen and pelvis was negative for any acute abnormality except for L3 compression fracture with suggestion of possible metastatic lesions.. Patient had bone biopsies done on 11/25/19 2 are negative for any malignancy. She is on IV heparin drip, cardiology following, possible cardiac cath planned today. Vitals were reviewed -stable Physical Exam: Gen: Lethargic, not pale, not jaundiced, alert oriented x3 CVS:HS I +II, regular, no murmurs RESP: CTA, Diminished at lung bases GI: BS present and normal, soft, generalised tenderness with , no palpable organs EXT:No edema Labs reviewed: ASSESSMENT: 1. Abdominal pain, unclear etiology for now, not likely to be acute abdomen 2. Intractable back pain s/p recent L3 kyphoplasty 3. NSTEMI 4. Acute encephalopathy 5. Osteoarthritis 6. Hypertension 7. GERD 8. Depression Meds reviewed Plan: Will follow-up on cardiology recommendation We will continue with only oxycodone as needed and hold off on morphine for now Continue with scheduled Tylenol Will continue to reassess patient. Inpatient E&M: [id number] [facility] Hosp L3
[2019-12-05 10:44] LABS: Bacteria 0 SEEN /hpf (None Seen); Mucous, Urine 0 SEEN /hpf (<or=2+); Squamous Epithelial Cells - UA 0 SEEN /hpf (5-10)
[2019-12-05 10:45] LABS: Color, Urine Straw (Yellow); Glucose, Dipstick Normal (Normal); Leukocyte Esterase-Dipstick Negative /ul (Negative); Nitrite-Dipstick Negative (Negative); Occult Blood-Urine Negative /ul (Negative); Protein-Dipstick 30 mg/dl (Negative); Urine Bilirubin Dipstick Negative (Negative); Urine Clarity Clear (Clear); Urine Urobilinogen Normal (Normal)
[2019-12-05 10:47] LABS: Ketone-Dipstick 150 mg/dl (Negative)
[2019-12-05 10:52] LABS: Red Blood Cells-Urine 0-5 SEEN /hpf (0-5); White Blood Cells 0-5 SEEN /hpf (0-5)
--- NOTE | 2019-12-05 10:53 | RAD_ITS ---
STUDY: X-RAY CHEST REASON FOR EXAM: Female, 84 years old. Pain and hypoxia. TECHNIQUE: PA and lateral views of the chest. COMPARISON: Prior comparison studies are not available for review at this time. FINDINGS: The lungs are clear and expanded. Blunting of the posterior costophrenic angles consistent with small bilateral pleural effusions. There is borderline cardiomegaly. Normal mediastinum and re. Normal visualized pulmonary arteries. There is atherosclerotic tortuosity of the aortic arch and descending thoracic aorta. Moderate compression fracture of T11 vertebra. Status post vertebroplasty of L1. Normal visualized ribs, clavicles, and shoulders. There is no demonstrated abnormality of the visualized soft tissue structures of the upper abdomen. RAD/Chest PA and Lateral IMPRESSION: Trace of bilateral pleural effusions. No active pulmonary disease. Electronically Signed: Dylon Goodman MD at 12:02 EDT Tel , Service support ,
[2019-12-05 11:17] LABS: Lipase 32 U/L (73-393)
--- NOTE | 2019-12-05 12:15 | CASEMGMT ---
Social Work Consult: Rehab vs. SNF Informant: president financial institution Marital/Social History: Single Living Arrangements: Lives alone in a 1-story condo with a threshold to enter. Patient prior level of functioning was independent. Patient still drives. DME: [employer]. Patient was not using any DME until the past week when patient had increased back pain. Support/Resources: Family. Patient sonPrakash is Health care Power of Cafeteria Director and documents are on patient chart. No active home health care or community resources. Mental Health Treatment/History: None. Patient did have a daughter that completed suicide when the daughter as 40. Patient confused and unable to complete suicide assessment on patient. Pharmacy: [address] [place], [place] Substance Abuse/Use: None Mental Status Exam: Alert to place. Appearance/General Behavior: Disoriented. Confused. Assessment: Met with patient in room. Introduced self and transition social worker role. Patient [id number], Sulema present in room. Sulema is Prakash's spouse. Prakash is providing consent to speak with Sulema. Information from assessment obtained from Sulema. Sulema is aware of patient with possible need for Rehab/SNF placement. Sulema states that first choice would be Inpatient Rehab and second choice would be the Transitional Care Unit. Sulema with no further questions. Patient pending therapy evaluations. Social Work to continue to follow. Nneka BATISTA, ALLEGRA
[2019-12-05 13:19] LABS: Lactic Acid 1.2 mmol/L (0.4-1.9)
[2019-12-05 17:19] LABS: Partial Thromboplast Time 111.9 Seconds (24.1-36.2)
[2019-12-05 23:56] LABS: Partial Thromboplast Time 51.6 Seconds (24.1-36.2)
[2019-12-06] VITALS (19 sets, daily range): BP systolic 141–189; BP diastolic 62–94; PULSE 47–82; RESP 18; TEMP 36.1–36.8; O2SAT 95–99
[2019-12-06] MEDS: Temazepam 15 MG Capsule PO (00:35)
[2019-12-06] MEDS: oxyCODONE 5 MG Tablet PO ×4 (00:35→20:18)
[2019-12-06] MEDS: Heparin Injection (Vial) 5,000 UNIT/ML VIAL IV (00:43)
[2019-12-06] MEDS: Nitroglycerin Oint 1 INCH PACKET 2 INCH TRANSDERM. ×3 (00:44→11:39)
[2019-12-06] MEDS: 0.9% Normal Saline 1,000 ML 75 ML IV (03:22)
--- NOTE | 2019-12-06 05:55 | EKG12_ITS ---
Test Reason : AM EKG Blood Pressure : / mmHG Vent. Rate : 060 BPM Atrial Rate : 060 BPM P-R Int : 152 ms QRS Dur : 080 ms QT Int : 456 ms P-R-T Axes : 067 046 -09 degrees QTc Int : 456 ms Normal sinus rhythm Nonspecific T wave abnormality Abnormal ECG When compared with ECG of 05-DEC-2019 02:38, MANUAL COMPARISON REQUIRED, DATA IS UNCONFIRMED Confirmed by TANA MIRANDA, KALIN ([id number]), editorial manager YANA PIERSON ([id number]) on 12/18/2019 1:32:22 PM Referred By: DR JENNINGS Confirmed By:HARSH FAJARDO MD
[2019-12-06] MEDS: hydrALAZINE 20 MG/ML Vial 10 MG IV ×2 (06:09→10:09)
[2019-12-06] MEDS: Acetaminophen 500 MG Tablet 1000 MG PO ×3 (06:14→21:55)
[2019-12-06 06:56] LABS: Mean Corp Hgb Conc 34.2 g/dL (32-36); Mean Corpuscular Hgb 32.1 pg (27.0-32.0); Mean Corpuscular Volume 93.8 fL (81-99); Mean Platelet Vol. 8.9 fl (6.2-12.0); Platelet Count 267 K/mm3 (150-450); RBC Distribution Width SD 47.3 fl (35.1-43.9); Red Blood Count 4.05 M/mm3 (4.2-5.4); White Blood Count 11.3 K/mm3 (4.4-11.0)
[2019-12-06 07:06] LABS: Partial Thromboplast Time 87.3 Seconds (24.1-36.2)
[2019-12-06 07:24] LABS: Anion Gap 7 (5-15); BUN 13 mg/dL (7-18); BUN/Creat Ratio 26.6 RATIO (10-20); Calcium,Total 8.2 mg/dL (8.5-10.1); Chloride 97 mmol/L (98-107); Creatinine, Serum 0.49 mg/dL (0.55-1.02); EST Glomerular Filtration Rate 128 mL/min (>60); Est Glom Filt Rate - Afr Amer 155 mL/min (>60); Estimated Creatinine Clearance 32.53 ml/min; Glucose 133 mg/dL (74-106); Potassium 3.3 mmol/L (3.5-5.1); Sodium Level 129 mmol/L (136-145)
[2019-12-06] MEDS: Ondansetron 4 MG/2 ML Vial IV (07:37)
[2019-12-06] MEDS: 0.9% Saline Lock 10 ML Syringe IV ×3 (07:37→10:09)
[2019-12-06] MEDS: Calcium Carb/Vitamin D 1 TABLET Tablet PO (07:38)
[2019-12-06] MEDS: Folic Acid 1 MG Tablet PO (07:39)
[2019-12-06] MEDS: Lisinopril 20 MG Tablet PO (07:39)
[2019-12-06] MEDS: Aspirin E.C. 81 MG Tablet PO (07:39)
--- NOTE | 2019-12-06 07:45 | EKG12_ITS ---
Test Reason : 4 HR LATER Blood Pressure : / mmHG Vent. Rate : 087 BPM Atrial Rate : 087 BPM P-R Int : 146 ms QRS Dur : 076 ms QT Int : 374 ms P-R-T Axes : 075 059 085 degrees QTc Int : 450 ms Normal sinus rhythm ST & T wave abnormality, consider anterior ischemia Abnormal ECG When compared with ECG of 04-DEC-2019 22:33, MANUAL COMPARISON REQUIRED, DATA IS UNCONFIRMED Confirmed by CONRADO MIRANDA, ZURI ([id number]), editorial cartoonist YANA PIERSON ([id number]) on 12/10/2019 11:08:31 AM Referred By: DR GONZALEZ Confirmed By:ZURI CAMP MD
[2019-12-06 07:54] LABS: AST(SGOT) 33 U/L (15-37); Alanine Aminotransfer ALT/SGPT 35 U/L (13-56); Albumin, Serum 2.7 g/dL (3.2-5.0); Alkaline Phosphatase 177 U/L (45-117); Bilirubin, Direct 0.29 mg/dL (0.00-0.30); Globulin 3.4 g/dL (2.2-4.2); Protein, Total 6.1 g/dL (6.4-8.2)
[2019-12-06] MEDS: Potassium Chloride 10mEq/100mL 10 MEQ/100 ML IV.SOLN. 100 MEQ IV BOLUS ×2 (08:41→09:43)
[2019-12-06] MEDS: Isosorbide Mononitrate 30 MG Tablet PO (08:41)
--- NOTE | 2019-12-06 09:25 | PCM.PROGNOTE ---
<Juanis Sousa - Last Filed: 12/06/19 09:44> Patient Problems: Active and Suspected Problems Back pain (Acute) Fall (Acute) Rhabdomyolysis (Acute) NSTEMI (non-ST elevated myocardial infarction) (Acute) Subjective: Patient seen and examined. Confused this morning. States she is in heaven and going through the door. Appears comfortable, denies pain. - Physical Exam Vitals/I&O's: Vital Signs Temp Pulse Resp BP Pulse Ox 97.6 F L 69 18 154/67 H 99 12/06/19 07:26 12/06/19 07:26 12/06/19 07:26 12/06/19 07:26 12/06/19 07:26 Oxygen Flow Rate (L/min) 1 Oxygen Delivery Method Room Air Weight: 177 lb Body Mass Index (BMI) 32.3 Intake and Output for Last 24 Hours 12/04/19 12/05/19 12/06/19 23:59 23:59 23:59 Intake Total 792.0 / 1445.75 2082.38 / 2082.38 1183.2 / 1183.2 Output Total 600 / 600 925 / 925 900 / 900 Balance 192.0 / 845.75 1157.38 / 1157.38 283.2 / 283.2 General: Cooperative, No apparent distress, Confused HEENT: Atraumatic, PERRLA, EOMI, Normocephalic Oral: Dry Mucosa Neck: Supple, No JVD, Negative Carotid Bruits Lungs: Clear to auscultation, Normal air movement Cardiovascular: Regular rate, No murmurs Abdomen: Bowel Sounds Present, Soft, Non Tender, Non-Distended Extremities: No clubbing, No cyanosis, No edema, Capillary Refill Less than 3 Seconds Skin: No rashes, No breakdown Musculoskeletal: No Tenderness to Palpation of Joints or Extremities Neurological: Cranial nerves II-XII grossly intact, Neuro grossly intact Psych/Mental Status: Normal Affect, Appropriate Laboratory Results 12/05/19 08:06: APTT > 250.0 H* 12/05/19 08:06: Lipase 32 L 12/05/19 10:35: Urine Color Straw, Urine Clarity Clear, Urine pH 6.0, Ur Specific [place] 1.020, Urine Protein 30 H, Urine Glucose (UA) Normal, Urine Ketones 150 H, Urine Occult Blood Negative, Urine Nitrite Negative, Urine Bilirubin Negative, Urine Urobilinogen Normal, Ur Leukocyte Esterase Negative, Urine RBC 0-5 SEEN, Urine WBC 0-5 SEEN, Ur Squamous Epith Cells 0 SEEN, Urine Bacteria 0 SEEN, Urine Mucus 0 SEEN 12/05/19 11:23: Troponin I 2.580 H* 12/05/19 12:37: Lactic Acid 1.2 12/05/19 16:36: APTT 111.9 H* 12/05/19 23:35: APTT 51.6 H 12/06/19 06:48: WBC 11.3 H, RBC 4.05 L, Hgb 13.0, Hct 38.0, MCV 93.8, MCH 32.1 H, MCHC 34.2, RDW Std Deviation 47.3 H, RDW Coeff of Ruma 14.0, Plt Count 267, MPV 8.9 12/06/19 06:48: Sodium 129 L, Potassium 3.3 L, Chloride 97 L, Carbon Dioxide 25.0, Anion Gap 7, BUN 13, Creatinine 0.49 L, Estim Creat Clear Calc 32.53, Est GFR (MDRD) Af Amer 155, Est GFR (MDRD) Non-Af 128, BUN/Creatinine Ratio 26.6 H, Glucose 133 H, Calcium 8.2 L, Troponin I 1.660 H* 12/06/19 06:48: APTT 87.3 H 12/06/19 06:48: Total Bilirubin 1.00, Direct Bilirubin 0.29, AST 33, ALT 35, Alkaline Phosphatase 177 H, Total Protein 6.1 L, Albumin 2.7 L, Globulin 3.4 Current Medications Acetaminophen (Tylenol) 1,000 mg PO Q8 [facility] Last Admin: 12/06/19 06:14 Dose: 1,000 mg Documented by: Aspirin (Ecotrin) 81 mg PO DAILY@0800 [facility] Last Admin: 12/06/19 07:39 Dose: 81 mg Documented by: Atorvastatin Calcium (Lipitor) 40 mg PO QHS [facility] Last Admin: 12/05/19 22:25 Dose: 40 mg Documented by: Calcium/Vitamin D (Os-Srinivasa 500mg + D) [facility] Last Admin: 12/06/19 07:38 Dose: 1 tablet Documented by: Folic Acid (Folic Acid) [facility] Last Admin: 12/06/19 07:39 Dose: 1 mg Documented by: Heparin Sodium (Porcine) (Heparin Na) 0 unit IV UD PRN; Protocol PRN Reason: NOMOGRAM Last Admin: 12/06/19 00:43 Dose: 1,000 unit Documented by: Hydralazine HCl (Apresoline Iv) 10 mg IV Q4H PRN PRN PRN Reason: BLOOD PRESSURE Last Admin: 12/06/19 06:09 Dose: 10 mg Documented by: Sodium Chloride () 250 mls @ 15 mls/hr IV .[id number] PRN PRN Reason: Saline Flush Last Infusion: 12/05/19 23:04 Dose: 15 mls/hr Documented by: Sodium Chloride () 250 mls @ 15 mls/hr IV .[id number] PRN PRN Reason: Additional IVPB Infusion Heparin Sodium/Sodium Chloride () 25,000 unit in 250 mls @ 11 mls/hr IV .[id number] [facility]; Protocol Last Titration: 12/06/19 07:20 Dose: 500 units/hr, 5 mls/hr Documented by: Pantoprazole Sodium 40 mg/ (Sodium Chloride) 110 mls @ 330 mls/hr IV Q12 [facility] Last Infusion: 12/05/19 23:04 Dose: Infused Documented by: Potassium Chloride 40 meq/ (Sodium Chloride) 1,020 mls @ 75 mls/hr IV .[id number] [facility] Potassium Chloride () 10 meq in 100 mls @ 100 mls/hr IV BOLUS Q1H [facility] Stop: 12/06/19 09:59 Last Admin: 12/06/19 08:41 Dose: 100 mls/hr Documented by: Isosorbide Mononitrate (Imdur) 30 mg PO DAILY [facility] Last Admin: 12/06/19 08:41 Dose: 30 mg Documented by: Lisinopril (Zestril) 20 mg PO BREAKFAST [facility] Last Admin: 12/06/19 07:39 Dose: 20 mg Documented by: Metoprolol Tartrate (Lopressor (Beta Duran)) 25 mg PO BID [facility] Last Admin: 12/05/19 22:25 Dose: 25 mg Documented by: Nitroglycerin (Nitrobid) 2 inch TRANSDERM. Q6H [facility] Last Admin: 12/06/19 06:13 Dose: 2 inch Documented by: Ondansetron HCl (Zofran) 4 mg IV Q8H PRN PRN PRN Reason: NAUSEA/VOMITING Last Admin: 12/06/19 07:37 Dose: 4 mg Documented by: Oxycodone HCl (Oxyir) 5 mg PO 4X/DAY PRN PRN PRN Reason: Pain Score 1-10/10 Last Admin: 12/06/19 07:37 Dose: 5 mg Documented by: Sodium Chloride () 10 - 40 ml IV UD PRN PRN Reason: SALINE FLUSH Last Admin: 12/06/19 08:41 Dose: 10 ml Documented by: Tolterodine Tartrate (Detrol La) 2 mg PO DAILY [facility] Last Admin: 12/05/19 10:08 Dose: Not Given Documented by: Medical Necessity - Tobacco Use Smoking Status: Never smoker Assessment/Plan All Active Problems Back pain (Acute) Fall (Acute) Rhabdomyolysis (Acute) NSTEMI (non-ST elevated myocardial infarction) (Acute) 1. NSTEMI-cardiology following. On heparin drip. Continue aspirin, statin, metoprolol. Echocardiogram demonstrates an EF of 65%, mild mitral valve insufficiency, mild tricuspid valve insufficiency, mild aortic stenosis, RVSP estimated to be 46 mmHg. After further discussion by cardiology with family, plan is for conservative medical management. Patient denies chest pain this morning. 2. Intractable back pain with recent compression fracture-see imaging. Recent kyphoplasty 11/23. Follows with Dr. Cohen. PRN pain regimen. PT/OT. Anticipate need for rehab at [facility]. 3. Abdominal pain-unclear etiology. Patient is poor historian due to confusion. CT of abdomen and pelvis unremarkable. Appears resolved at this time. 4. Acute encephalopathy, delirium-patient alert and oriented at baseline. Brain CT unremarkable for acute process. UA and chest x-ray unremarkable. Avoid narcotic and sedating regimen. 5. Osteoarthritis-on methotrexate, leucovorin? Follows with Dr. Pereira. 6. Hypertension-Continue home lisinopril regimen. PRN hydralazine for systolic blood pressure greater than 160. 7. GERD-continue omeprazole. 8. Depression-continue duloxetine regimen. DVT prophylaxis-Heparin drip This patient was seen by GORDY Hicks under the supervision of Dr. Dr. Lyles. <[place] - Last Filed: 12/06/19 12:01> - Physical Exam Vitals/I&O's: Vital Signs Temp Pulse Resp BP Pulse Ox 97.0 F L 69 18 155/62 H 97 12/06/19 09:45 12/06/19 11:39 12/06/19 09:45 12/06/19 11:39 12/06/19 09:45 Oxygen Flow Rate (L/min) 1 Oxygen Delivery Method Room Air Weight: 80.286 kg Body Mass Index (BMI) 32.3 Intake and Output for Last 24 Hours 12/04/19 12/05/19 12/06/19 23:59 23:59 23:59 Intake Total 792.0 / 1445.75 2082.38 / 2082.38 2137.95 / 2137.95 Output Total 600 / 600 925 / 925 900 / 900 Balance 192.0 / 845.75 1157.38 / 1157.38 1237.95 / 1237.95 Laboratory Results 12/05/19 11:23: Troponin I 2.580 H* 12/05/19 12:37: Lactic Acid 1.2 12/05/19 16:36: APTT 111.9 H* 12/05/19 23:35: APTT 51.6 H 12/06/19 06:48: WBC 11.3 H, RBC 4.05 L, Hgb 13.0, Hct 38.0, MCV 93.8, MCH 32.1 H, MCHC 34.2, RDW Std Deviation 47.3 H, RDW Coeff of Ruma 14.0, Plt Count 267, MPV 8.9 12/06/19 06:48: Sodium 129 L, Potassium 3.3 L, Chloride 97 L, Carbon Dioxide 25.0, Anion Gap 7, BUN 13, Creatinine 0.49 L, Estim Creat Clear Calc 32.53, Est GFR (MDRD) Af Amer 155, Est GFR (MDRD) Non-Af 128, BUN/Creatinine Ratio 26.6 H, Glucose 133 H, Calcium 8.2 L, Troponin I 1.660 H* 12/06/19 06:48: APTT 87.3 H 12/06/19 06:48: Total Bilirubin 1.00, Direct Bilirubin 0.29, AST 33, ALT 35, Alkaline Phosphatase 177 H, Total Protein 6.1 L, Albumin 2.7 L, Globulin 3.4 Current Medications Acetaminophen (Tylenol) 1,000 mg PO Q8 [facility] Last Admin: 12/06/19 06:14 Dose: 1,000 mg Documented by: Aspirin (Ecotrin) 81 mg PO DAILY@0800 [facility] Last Admin: 12/06/19 07:39 Dose: 81 mg Documented by: Atorvastatin Calcium (Lipitor) 40 mg PO QHS [facility] Last Admin: 12/05/19 22:25 Dose: 40 mg Documented by: Calcium/Vitamin D (Os-Srinivasa 500mg + D) [facility] Last Admin: 12/06/19 07:38 Dose: 1 tablet Documented by: Folic Acid (Folic Acid) [facility] Last Admin: 12/06/19 07:39 Dose: 1 mg Documented by: Heparin Sodium (Porcine) (Heparin Na) 0 unit IV UD PRN; Protocol PRN Reason: NOMOGRAM Last Admin: 12/06/19 00:43 Dose: 1,000 unit Documented by: Hydralazine HCl (Apresoline Iv) 10 mg IV Q4H PRN PRN PRN Reason: BLOOD PRESSURE Last Admin: 12/06/19 10:09 Dose: 10 mg Documented by: Sodium Chloride () 250 mls @ 15 mls/hr IV .[id number] PRN PRN Reason: Saline Flush Last Infusion: 12/06/19 09:58 Dose: 0 mls/hr Documented by: Sodium Chloride () 250 mls @ 15 mls/hr IV .[id number] PRN PRN Reason: Additional IVPB Infusion Heparin Sodium/Sodium Chloride () 25,000 unit in 250 mls @ 11 mls/hr IV .[id number] [facility]; Protocol Last Titration: 12/06/19 07:20 Dose: 500 units/hr, 5 mls/hr Documented by: Pantoprazole Sodium 40 mg/ (Sodium Chloride) 110 mls @ 330 mls/hr IV Q12 [facility] Last Infusion: 12/06/19 10:17 Dose: Infused Documented by: Potassium Chloride 40 meq/ (Sodium Chloride) 1,020 mls @ 75 mls/hr IV .[id number] [facility] Last Admin: 12/06/19 10:09 Dose: 75 mls/hr Documented by: Isosorbide Mononitrate (Imdur) 30 mg PO DAILY [facility] Last Admin: 12/06/19 08:41 Dose: 30 mg Documented by: Lisinopril (Zestril) 20 mg PO BREAKFAST [facility] Last Admin: 12/06/19 07:39 Dose: 20 mg Documented by: Metoprolol Tartrate (Lopressor (Beta Duran)) 25 mg PO BID [facility] Last Admin: 12/06/19 09:54 Dose: 25 mg Documented by: Nitroglycerin (Nitrobid) 2 inch TRANSDERM. Q6H [facility] Last Admin: 12/06/19 11:39 Dose: 2 inch Documented by: Ondansetron HCl (Zofran) 4 mg IV Q8H PRN PRN PRN Reason: NAUSEA/VOMITING Last Admin: 12/06/19 07:37 Dose: 4 mg Documented by: Oxycodone HCl (Oxyir) 5 mg PO 4X/DAY PRN PRN PRN Reason: Pain Score 1-10/10 Last Admin: 12/06/19 07:37 Dose: 5 mg Documented by: Sodium Chloride () 10 - 40 ml IV UD PRN PRN Reason: SALINE FLUSH Last Admin: 12/06/19 10:09 Dose: 10 ml Documented by: Tolterodine Tartrate (Detrol La) 2 mg PO DAILY [facility] Last Admin: 12/06/19 09:54 Dose: 2 mg Documented by: Assessment/Plan This patient was seen in conjunction with Juanis Sousa AVIONICS TECHNICIAN. I have independently interviewed and examined the patient and reviewed pertinent historical, laboratory, and other data. Please refer to her note for patient's presentation, findings, and recommendations. Patient was seen and examined. She is confused, alert oriented to herself but not to place or time. Answers to her questions are not reliable. Patient had complained of chest pain, EKG was unchanged. Vitals were reviewed -stable Physical Exam: Gen: Lethargic, not pale, not jaundiced, alert oriented x3 CVS:HS I +II, regular, no murmurs RESP: CTA, Diminished at lung bases GI: BS present and normal, soft, generalised tenderness with no palpable organs EXT:No edema Labs reviewed: ASSESSMENT: 1. Abdominal pain, unclear etiology for now, not likely to be acute abdomen 2. Intractable back pain s/p recent L3 kyphoplasty 3. NSTEMI, family declined cardiac cath 4. Acute encephalopathy 5. Osteoarthritis 6. Hypertension 7. GERD 8. Depression Meds reviewed Plan: We will discontinue Cymbalta and Restoril Will continue to monitor patient's mentation Start patient on Imdur DC nitroglycerin patch. Continue on scheduled Tylenol and as needed oxycodone Inpatient E&M: [id number] Subs Hosp L2
[2019-12-06] MEDS: Metoprolol Tartrate 25 MG Tablet PO ×2 (09:54→21:55)
[2019-12-06] MEDS: Tolterodine Tartrate 2 MG CAP.SA PO (09:54)
[2019-12-06] MEDS: Potassium Chloride 40 MEQ in 0.9% Normal Saline 1,000 ML 75 MEQ IV (10:09)
[2019-12-06 13:35] LABS: Partial Thromboplast Time 60.4 Seconds (24.1-36.2)
--- NOTE | 2019-12-06 13:41 | PN.CARD_ITS ---
Subjectve: The patient is awake and complains of chronic total body discomfort. She has no new specific cardiovascular complaints. Objective: Vital Signs Temp Pulse Resp BP Pulse Ox 97.0 F L 69 18 155/62 H 97 12/06/19 09:45 12/06/19 11:39 12/06/19 09:45 12/06/19 11:39 12/06/19 09:45 Oxygen Flow Rate (L/min) 1 Oxygen Delivery Method Room Air Weight: 177 lb Body Mass Index (BMI) 32.3 Intake and Output for Last 24 Hours 12/04/19 12/05/19 12/06/19 23:59 23:59 23:59 Intake Total 792.0 / 1445.75 2082.38 / 2082.38 2637.95 / 2637.95 Output Total 600 / 600 925 / 925 1500 / 1500 Balance 192.0 / 845.75 1157.38 / 1157.38 1137.95 / 1137.95 General: Awake, Ill Appearing Lungs: Clear to auscultation Cardiovascular: Regular Rhythm, Normal S1, Normal S2 Abdomen: Bowel Sounds Present, Soft Extremities: No edema 12/05/19 16:36: APTT 111.9 H* 12/05/19 23:35: APTT 51.6 H 12/06/19 06:48: WBC 11.3 H, RBC 4.05 L, Hgb 13.0, Hct 38.0, MCV 93.8, MCH 32.1 H , MCHC 34.2, Plt Count 267, MPV 8.9 12/06/19 06:48: Sodium 129 L, Potassium 3.3 L, Chloride 97 L, Carbon Dioxide 25.0, Anion Gap 7, BUN 13, Creatinine 0.49 L, Est GFR (MDRD) Af Amer 155, Est GFR (MDRD) Non-Af 128, BUN/Creatinine Ratio 26.6 H, Glucose 133 H, Calcium 8.2 L , Troponin I 1.660 H* 12/06/19 06:48: APTT 87.3 H 12/06/19 06:48: Total Bilirubin 1.00, Direct Bilirubin 0.29 12/06/19 13:15: APTT 60.4 H Rhythm: Sinus rhythm Echocardiogram: 12-05-2019 Interpretation Summary The study was technically difficult. Contrast injection was performed. Left ventricular systolic function is normal. The estimated ejection fraction is 65 %. The left atrium is mildly enlarged. Mild (1+) mitral valve insufficiency. Mild tricuspid valve insufficiency. Mild aortic stenosis. Trivial aortic valve insufficiency. Calcified aortic root. Right ventricular systolic pressure estimated to be 46 mmHg. Diastolic function is indeterminate. Medical Necessity - Tobacco Use Smoking Status: Never smoker Assessment/Plan 1. Non-ST segment elevation SC The patient demonstrated findings compatible with a non-ST segment elevation SC based upon her cardiac enzyme changes. Her cardiac enzymes have decreased. She underwent transthoracic echocardiogram with results as noted. Based upon a discussion with her family members present yesterday and subsequent additional information presented by her family members later in the day the consensus was the patient would continue conservative medical management and that she was not a patient to proceed with further invasive evaluation or care. 2. Hypertension The patient will need to continue medical management as deemed appropriate. 3. GERD The patient reportedly has a history of GERD. She will continue evaluation care by internal medicine. 4. Back pain The patient has a history of chronic back related discomfort and chronic back management related procedures. She now has an L4 compression fracture which may be contributing to her acute back pain. She will continue evaluation care per internal medicine. 5. Rhabdomyolysis The patient did present with an elevated CPK level. This was attributed to rhabdomyolysis secondary the patient lying supine on the floor for period of time. For all, at the present time, the patient will continue conservative medical management. She is not being scheduled for any additional cardiovascular diagnostic studies/intervention at this time. She may also need to be considered, based upon her chronic pain discomfort, etc., for palliative/hospice care. Comment: The patient's case has been discussed and reviewed with the patient as well as with the [facility] hospitalist team.
--- NOTE | 2019-12-06 16:41 | NURSING ---
This RN updated pt's family at bedside.
[2019-12-06] MEDS: Atorvastatin Calcium 40 MG Tablet PO (21:55)
[2019-12-07] VITALS (15 sets, daily range): BP systolic 138–209; BP diastolic 64–82; PULSE 57–80; RESP 18; TEMP 36.5–36.8; O2SAT 94–97
[2019-12-07] MEDS: Potassium Chloride 40 MEQ in 0.9% Normal Saline 1,000 ML 75 MEQ IV ×2 (00:30→14:12)
[2019-12-07] MEDS: oxyCODONE 5 MG Tablet PO ×4 (03:18→23:06)
[2019-12-07] MEDS: hydrALAZINE 20 MG/ML Vial 10 MG IV ×2 (03:24→22:03)
[2019-12-07] MEDS: 0.9% Saline Lock 10 ML Syringe IV (03:25)
[2019-12-07 05:39] LABS: Hematocrit 37.3 % (37-47); Hemoglobin 12.9 g/dL (12.0-15.0); Mean Corp Hgb Conc 34.6 g/dL (32-36); Mean Corpuscular Volume 92.6 fL (81-99); Mean Platelet Vol. 9.1 fl (6.2-12.0); Platelet Count 294 K/mm3 (150-450); RBC Distribution Width CV 13.6 % (11.6-14.6); RBC Distribution Width SD 46.2 fl (35.1-43.9); Red Blood Count 4.03 M/mm3 (4.2-5.4); White Blood Count 8.3 K/mm3 (4.4-11.0)
[2019-12-07 05:54] LABS: Anion Gap 8 (5-15); BUN 11 mg/dL (7-18); BUN/Creat Ratio 21.2 RATIO (10-20); Calcium,Total 8.2 mg/dL (8.5-10.1); Chloride 97 mmol/L (98-107); Creatinine, Serum 0.52 mg/dL (0.55-1.02); EST Glomerular Filtration Rate 119 mL/min (>60); Est Glom Filt Rate - Afr Amer 144 mL/min (>60); Estimated Creatinine Clearance 32.53 ml/min; Glucose 116 mg/dL (74-106); Potassium 4.1 mmol/L (3.5-5.1); Sodium Level 127 mmol/L (136-145)
[2019-12-07] MEDS: Folic Acid 1 MG Tablet PO (07:24)
[2019-12-07] MEDS: Calcium Carb/Vitamin D 1 TABLET Tablet PO (07:24)
[2019-12-07] MEDS: Lisinopril 20 MG Tablet PO (07:24)
[2019-12-07] MEDS: Aspirin E.C. 81 MG Tablet PO (07:24)
[2019-12-07] MEDS: Acetaminophen 500 MG Tablet 1000 MG PO ×3 (07:24→22:04)
[2019-12-07] MEDS: Metoprolol Tartrate 25 MG Tablet PO ×2 (09:28→22:04)
[2019-12-07] MEDS: Tolterodine Tartrate 2 MG CAP.SA PO (09:28)
[2019-12-07] MEDS: Isosorbide Mononitrate 30 MG Tablet PO (09:32)
--- NOTE | 2019-12-07 11:03 | CASEMGMT ---
SANCHEZ called Yancy in TCU and put patient's name on the list. TCU might have a discharge tomorrow. SANCHEZ also called Carolynn in Rehab with possible referral. SANCHEZ spoke with patient and confirmed she would like to go to Inpatient Rehab vs TCU. SANCHEZ told her we will see how she does with therapy and go from there. Plan: TCU vs Inpatient Rehab pending bed availability and how patient does with therapy Iris DINH MSW
--- NOTE | 2019-12-07 11:59 | PCM.PROGNOTE ---
<Juanis Sousa - Last Filed: 12/07/19 12:07> Patient Problems: Active and Suspected Problems Back pain (Acute) Fall (Acute) Rhabdomyolysis (Acute) NSTEMI (non-ST elevated myocardial infarction) (Acute) Subjective: Patient seen and examined. Mental status significantly improved. Alert and oriented this morning. Complains of back pain. Denies further chest pain or abdominal pain. Denies other symptoms or complaints. Agreeable to SNF for rehab. - Physical Exam Vitals/I&O's: Vital Signs Temp Pulse Resp BP Pulse Ox 98.3 F 78 18 165/64 H 96 12/07/19 09:23 12/07/19 09:28 12/07/19 09:23 12/07/19 09:23 12/07/19 09:23 Oxygen Flow Rate (L/min) 1 Oxygen Delivery Method Room Air Weight: 177 lb Body Mass Index (BMI) 32.3 Intake and Output for Last 24 Hours 12/05/19 12/06/19 12/07/19 23:59 23:59 23:59 Intake Total 2082.38 / 2082.38 3991.87 / 3991.87 243.75 / 243.75 Output Total 925 / 925 1900 / 1900 1400 / 1400 Balance 1157.38 / 1157.38 2091.87 / 2091.87 -1156.25 / -1156.25 General: Alert, Oriented x3, Cooperative HEENT: Atraumatic, PERRLA, EOMI, Normocephalic Neck: Supple, No JVD, Negative Carotid Bruits Lungs: Clear to auscultation, Normal air movement Cardiovascular: Regular rate, No murmurs Abdomen: Bowel Sounds Present, Soft, Non Tender, Non-Distended Extremities: No clubbing, No cyanosis, No edema, Capillary Refill Less than 3 Seconds Skin: No rashes, No breakdown Musculoskeletal: No Tenderness to Palpation of Joints or Extremities Neurological: Cranial nerves II-XII grossly intact, Neuro grossly intact Psych/Mental Status: Normal Affect, Appropriate Microbiology Past 72 Hours 12/05/19 10:42 Urine Catheter - Catheter Urine Culture - Preliminary Gram positive jesus alberto Laboratory Results 12/06/19 13:15: APTT 60.4 H 12/07/19 04:56: WBC 8.3, RBC 4.03 L, Hgb 12.9, Hct 37.3, MCV 92.6, MCH 32.0, MCHC 34.6, RDW Std Deviation 46.2 H, RDW Coeff of Ruma 13.6, Plt Count 294, MPV 9.1 12/07/19 04:56: Sodium 127 L, Potassium 4.1, Chloride 97 L, Carbon Dioxide 22.0, Anion Gap 8, BUN 11, Creatinine 0.52 L, Estim Creat Clear Calc 32.53, Est GFR (MDRD) Af Amer 144, Est GFR (MDRD) Non-Af 119, BUN/Creatinine Ratio 21.2 H, Glucose 116 H, Calcium 8.2 L Current Medications Acetaminophen (Tylenol) 1,000 mg PO Q8 COUNTS INCLUDE 234 BEDS AT THE [facility] Last Admin: 12/07/19 07:24 Dose: 1,000 mg Documented by: Aspirin (Ecotrin) 81 mg PO DAILY@0800 COUNTS INCLUDE 234 BEDS AT THE [facility] Last Admin: 12/07/19 07:24 Dose: 81 mg Documented by: Atorvastatin Calcium (Lipitor) 40 mg PO QHS COUNTS INCLUDE 234 BEDS AT THE [facility] Last Admin: 12/06/19 21:55 Dose: 40 mg Documented by: Calcium/Vitamin D ([facility]Srinivasa [facility] + D[facility] Last Admin: 12/07/19 07:24 Dose: 1 tablet Documented by: Enoxaparin Sodium (Lovenox) 40 mg SC DAILY@0600 COUNTS INCLUDE 234 BEDS AT [facility] Acid) [facility] Last Admin: 12/07/19 07:24 Dose: 1 mg Documented by: Hydralazine HCl (Apresoline Iv) 10 mg IV Q4H PRN PRN PRN Reason: BLOOD PRESSURE Last Admin: 12/07/19 03:24 Dose: 10 mg Documented by: Sodium Chloride () 250 mls @ 15 mls/hr IV .[id number] PRN PRN Reason: Saline Flush Last Infusion: 12/06/19 09:58 Dose: 0 mls/hr Documented by: Sodium Chloride () 250 mls @ 15 mls/hr IV .[id number] PRN PRN Reason: Additional IVPB Infusion Pantoprazole Sodium 40 mg/ (Sodium Chloride) 110 mls @ 330 mls/hr IV Q12 COUNTS INCLUDE 234 BEDS AT THE [facility] Last Infusion: 12/07/19 10:05 Dose: Infused Documented by: Potassium Chloride 40 meq/ (Sodium Chloride) 1,020 mls @ 75 mls/hr IV .[id number] COUNTS INCLUDE 234 BEDS AT THE [facility] Last Admin: 12/07/19 00:30 Dose: 75 mls/hr Documented by: Isosorbide Mononitrate (Imdur) 30 mg PO DAILY COUNTS INCLUDE 234 BEDS AT THE [facility] Last Admin: 12/07/19 09:32 Dose: 30 mg Documented by: Lisinopril (Zestril) 20 mg PO BREAKFAST COUNTS INCLUDE 234 BEDS AT THE [facility] Last Admin: 12/07/19 07:24 Dose: 20 mg Documented by: Metoprolol Tartrate (Lopressor (Beta Duran)) 25 mg PO BID COUNTS INCLUDE 234 BEDS AT THE [facility] Last Admin: 12/07/19 09:28 Dose: 25 mg Documented by: Ondansetron HCl (Zofran) 4 mg IV Q8H PRN PRN PRN Reason: NAUSEA/VOMITING Last Admin: 12/06/19 07:37 Dose: 4 mg Documented by: Oxycodone HCl (Oxyir) 5 mg PO 4X/DAY PRN PRN PRN Reason: Pain Score 1-10/10 Last Admin: 12/07/19 09:28 Dose: 5 mg Documented by: Sodium Chloride () 10 - 40 ml IV UD PRN PRN Reason: SALINE FLUSH Last Admin: 12/07/19 03:25 Dose: 10 ml Documented by: Tolterodine Tartrate (Detrol La) 2 mg PO DAILY COUNTS INCLUDE 234 BEDS AT THE [facility] Last Admin: 12/07/19 09:28 Dose: 2 mg Documented by: Medical Necessity - Tobacco Use Smoking Status: Never smoker Assessment/Plan All Active Problems Back pain (Acute) Fall (Acute) Rhabdomyolysis (Acute) NSTEMI (non-ST elevated myocardial infarction) (Acute) 1. NSTEMI-cardiology following. Continue aspirin, statin, metoprolol, isosorbide. Echocardiogram demonstrates an EF of 65%, mild mitral valve insufficiency, mild tricuspid valve insufficiency, mild aortic stenosis, RVSP estimated to be 46 mmHg. After further discussion by cardiology with family, plan is for conservative medical management. Patient denies further chest pain. Outpatient follow-up with cardiology. 2. Intractable back pain with recent compression fracture-see imaging. Recent kyphoplasty 11/23. Follows with Dr. Cohen. PRN pain regimen. PT/OT. SNF versus rehab pending approval. 3. Abdominal pain-unclear etiology. CT of abdomen and pelvis unremarkable. Patient reports extensive history of intermittent abdominal pain. Currently resolved. Outpatient follow-up. 4. Acute encephalopathy, delirium-currently resolved. Brain CT unremarkable for acute process. UA and chest x-ray unremarkable. Avoid narcotic and sedating regimen. 5. Osteoarthritis-on methotrexate, leucovorin? Follows with Dr. Pereira. 6. Hypertension-Continue home lisinopril regimen. PRN hydralazine for systolic blood pressure greater than 160. 7. GERD-continue omeprazole. 8. Depression-continue duloxetine regimen. DVT prophylaxis-Lovenox subcu Discharge planning: SNF pending approval. This patient was seen by GORDY Hicks under the supervision of Dr. Dr. Lyles. <Fabby Lyles - Last Filed: 12/07/19 12:57> - Physical Exam Vitals/I&O's: Vital Signs Temp Pulse Resp BP Pulse Ox 98.3 F 78 18 165/64 H 96 12/07/19 09:23 12/07/19 09:28 12/07/19 09:23 12/07/19 09:23 12/07/19 09:23 Oxygen Flow Rate (L/min) 1 Oxygen Delivery Method Room Air Weight: 80.286 kg Body Mass Index (BMI) 32.3 Intake and Output for Last 24 Hours 12/05/19 12/06/19 12/07/19 23:59 23:59 23:59 Intake Total 2082.38 / 2082.38 3991.87 / 3991.87 243.75 / 243.75 Output Total 925 / 925 1900 / 1900 1400 / 1400 Balance 1157.38 / 1157.38 2091.87 / 2091.87 -1156.25 / -1156.25 Microbiology Past 72 Hours 12/05/19 10:42 Urine Catheter - Catheter Urine Culture - Preliminary Gram positive jesus alberto Laboratory Results 12/06/19 13:15: APTT 60.4 H 12/07/19 04:56: WBC 8.3, RBC 4.03 L, Hgb 12.9, Hct 37.3, MCV 92.6, MCH 32.0, MCHC 34.6, RDW Std Deviation 46.2 H, RDW Coeff of Ruma 13.6, Plt Count 294, MPV 9.1 12/07/19 04:56: Sodium 127 L, Potassium 4.1, Chloride 97 L, Carbon Dioxide 22.0, Anion Gap 8, BUN 11, Creatinine 0.52 L, Estim Creat Clear Calc 32.53, Est GFR (MDRD) Af Amer 144, Est GFR (MDRD) Non-Af 119, BUN/Creatinine Ratio 21.2 H, Glucose 116 H, Calcium 8.2 L Current Medications Acetaminophen (Tylenol) 1,000 mg PO Q8 COUNTS INCLUDE 234 BEDS AT [facility] Last Admin: 12/07/19 07:24 Dose: 1,000 mg Documented by: Aspirin (Ecotrin) 81 mg PO DAILY@0800 COUNTS INCLUDE 234 BEDS AT [facility] Last Admin: 12/07/19 07:24 Dose: 81 mg Documented by: Atorvastatin Calcium (Lipitor) 40 mg PO QHS COUNTS INCLUDE 234 BEDS AT [facility] Last Admin: 12/06/19 21:55 Dose: 40 mg Documented by: Calcium/Vitamin D (Os-Srinivasa 500mg + D) [facility] Last Admin: 12/07/19 07:24 Dose: 1 tablet Documented by: Enoxaparin Sodium (Lovenox) 40 mg SC DAILY@0600 COUNTS INCLUDE 234 BEDS AT [facility] Folic Acid (Folic Acid) [facility] Last Admin: 12/07/19 07:24 Dose: 1 mg Documented by: Hydralazine HCl (Apresoline Iv) 10 mg IV Q4H PRN PRN PRN Reason: BLOOD PRESSURE Last Admin: 12/07/19 03:24 Dose: 10 mg Documented by: Sodium Chloride () 250 mls @ 15 mls/hr IV .[id number] PRN PRN Reason: Saline Flush Last Infusion: 12/06/19 09:58 Dose: 0 mls/hr Documented by: Sodium Chloride () 250 mls @ 15 mls/hr IV .[id number] PRN PRN Reason: Additional IVPB Infusion Pantoprazole Sodium 40 mg/ (Sodium Chloride) 110 mls @ 330 mls/hr IV Q12 COUNTS INCLUDE 234 BEDS AT [facility] Last Infusion: 12/07/19 10:05 Dose: Infused Documented by: Potassium Chloride 40 meq/ (Sodium Chloride) 1,020 mls @ 75 mls/hr IV .[id number] COUNTS INCLUDE 234 BEDS AT [facility] Last Admin: 12/07/19 00:30 Dose: 75 mls/hr Documented by: Isosorbide Mononitrate (Imdur) 30 mg PO DAILY COUNTS INCLUDE 234 BEDS AT THE [facility] Last Admin: 08/31/20 09:32 Dose: 30 mg Documented by: Lidocaine (Lidoderm Patch) 2 patch TOPICAL DAILY COUNTS INCLUDE 234 BEDS AT THE [facility]; Protocol Lisinopril (Zestril) 20 mg PO BREAKFAST COUNTS INCLUDE 234 BEDS AT THE [facility] Last Admin: 12/07/19 07:24 Dose: 20 mg Documented by: Metoprolol Tartrate (Lopressor (Beta Duran)) 25 mg PO BID COUNTS INCLUDE 234 BEDS AT [facility] Last Admin: 12/07/19 09:28 Dose: 25 mg Documented by: Ondansetron HCl (Zofran) 4 mg IV Q8H PRN PRN PRN Reason: NAUSEA/VOMITING Last Admin: 12/06/19 07:37 Dose: 4 mg Documented by: Oxycodone HCl (Oxyir) 5 mg PO 4X/DAY PRN PRN PRN Reason: Pain Score 1-10/10 Last Admin: 12/07/19 09:28 Dose: 5 mg Documented by: Sodium Chloride () 10 - 40 ml IV UD PRN PRN Reason: SALINE FLUSH Last Admin: 12/07/19 03:25 Dose: 10 ml Documented by: Tolterodine Tartrate (Detrol La) 2 mg PO DAILY COUNTS INCLUDE 234 BEDS AT [facility] Last Admin: 12/07/19 09:28 Dose: 2 mg Documented by: Assessment/Plan This patient was seen in conjunction with Juanis Sousa [employer]AX AUDIT MANAGER. I have independently interviewed and examined the patient and reviewed pertinent historical, laboratory, and other data. Please refer to her note for patient's presentation, findings, and recommendations. Patient was seen and examined. She is much awake and alert. No acute events overnight. She complains of back pain. Denies any abdominal pain no chest pain. Vitals were reviewed -stable Physical Exam: Gen: Awake and alert, not pale, not jaundiced, alert oriented x3 CVS:HS I +II, regular, no murmurs RESP: CTA, Diminished at lung bases GI: BS present and normal, soft, generalised tenderness with no palpable organs EXT:No edema Labs reviewed: ASSESSMENT: 1. Abdominal pain, resolved 2. Intractable back pain s/p recent L3 kyphoplasty 3. NSTEMI, family declined cardiac cath 4. Acute encephalopathy 5. Osteoarthritis 6. Hypertension 7. GERD 8. Depression Meds reviewed Plan: Continue on scheduled Tylenol, PRN oxycodone, Lidoderm patches Continue rest of her medications Discharge planning discussed with case management/social work Inpatient E&M: [id number] Subs Hosp L2
--- NOTE | 2019-12-07 13:07 | PN.CARD_ITS ---
Subjectve: The patient continues with her chronic total body discomfort especially her back discomfort. Objective: Vital Signs Temp Pulse Resp BP Pulse Ox 98.3 F 78 18 165/64 H 96 12/07/19 09:23 12/07/19 09:28 12/07/19 09:23 12/07/19 09:23 12/07/19 09:23 Oxygen Flow Rate (L/min) 1 Oxygen Delivery Method Room Air Weight: 177 lb Body Mass Index (BMI) 32.3 Intake and Output for Last 24 Hours 12/05/19 12/06/19 12/07/19 23:59 23:59 23:59 Intake Total 2082.38 / 2082.38 3991.87 / 3991.87 243.75 / 243.75 Output Total 925 / 925 1900 / 1900 1400 / 1400 Balance 1157.38 / 1157.38 2091.87 / 2091.87 -1156.25 / -1156.25 General: Awake, Ill Appearing HEENT: Atraumatic, Normocephalic, PERRL, EOMI, Sclera Non Icteric Neck: No JVD Lungs: Clear to auscultation Cardiovascular: Regular Rhythm, Normal S1, Normal S2 Abdomen: Bowel Sounds Present, Soft Extremities: No edema Psych/Mental Status: Depressed 12/06/19 13:15: APTT 60.4 H 12/07/19 04:56: WBC 8.3, RBC 4.03 L, Hgb 12.9, Hct 37.3, MCV 92.6, MCH 32.0, MCHC 34.6, Plt Count 294, MPV 9.1 12/07/19 04:56: Sodium 127 L, Potassium 4.1, Chloride 97 L, Carbon Dioxide 22.0, Anion Gap 8, BUN 11, Creatinine 0.52 L, Est GFR (MDRD) Af Amer 144, Est GFR (MDRD) Non-Af 119, BUN/Creatinine Ratio 21.2 H, Glucose 116 H, Calcium 8.2 L Rhythm: Sinus rhythm Medical Necessity - Tobacco Use Smoking Status: Never smoker Assessment/Plan 1. Non-ST segment elevation [place] The patient demonstrated findings compatible with a non-ST segment elevation OH based upon her cardiac enzyme changes. Her cardiac enzymes have decreased. She underwent transthoracic echocardiogram with results as noted. Based upon a discussion with her family members present yesterday and subsequent additional information presented by her family members later in the day the consensus was the patient would continue conservative medical management and that she was not a patient to proceed with further invasive evaluation or care. 2. Hypertension The patient will need to continue medical management as deemed appropriate. 3. GERD The patient reportedly has a history of GERD. She will continue evaluation care by internal medicine. 4. Back pain The patient has a history of chronic back related discomfort and chronic back management related procedures. She now has an L4 compression fracture which may be contributing to her acute back pain. She will continue evaluation care per internal medicine. 5. Rhabdomyolysis The patient did present with an elevated CPK level. This was attributed to rhabdomyolysis secondary the patient lying supine on the floor for period of time. For all, at the present time, the patient will continue conservative medical management. She is not being scheduled for any additional cardiovascular diagno stic studies/intervention at this time. She may also need to be considered, based upon her chronic pain discomfort, for post hospital ECF care as well as for palliative/hospice care. Comment: The patient's case has been discussed and reviewed with the patient as well as with the [facility] hospitalist team.
[2019-12-07] MEDS: Lidocaine 5% Patch 2 PATCH TOPICAL (14:25)
--- NOTE | 2019-12-07 14:26 | CASEMGMT ---
SANCHEZ received a call from Carolynn with Inpatient Rehab Unit and she said therapy feels like patient would be a great rehab candidate. SANCHEZ spoke with patient and she said she is in agreement with going to the Inpatient Rehab Unit. SANCHEZ called Carolynn and let her know patient would like to go to the Rehab Unit. Iris DINH MSW
[2019-12-07] MEDS: Atorvastatin Calcium 40 MG Tablet PO (22:04)
[2019-12-08] VITALS (11 sets, daily range): BP systolic 160–214; BP diastolic 64–94; PULSE 51–69; RESP 16–18; TEMP 36.4–36.7; O2SAT 95–98
[2019-12-08] MEDS: Potassium Chloride 40 MEQ in 0.9% Normal Saline 1,000 ML 75 MEQ IV (04:23)
[2019-12-08] MEDS: hydrALAZINE 20 MG/ML Vial 10 MG IV (04:47)
[2019-12-08] MEDS: Enoxaparin 40 MG/0.4 ML Syringe SC (05:01)
[2019-12-08 06:18] LABS: Anion Gap 7 (5-15); BUN 9 mg/dL (7-18); BUN/Creat Ratio 19.3 RATIO (10-20); Calcium,Total 8.1 mg/dL (8.5-10.1); Chloride 103 mmol/L (98-107); Creatinine, Serum 0.47 mg/dL (0.55-1.02); EST Glomerular Filtration Rate 135 mL/min (>60); Est Glom Filt Rate - Afr Amer 163 mL/min (>60); Estimated Creatinine Clearance 32.53 ml/min; Glucose 123 mg/dL (74-106); Sodium Level 133 mmol/L (136-145)
--- NOTE | 2019-12-08 06:49 | EKG12_ITS ---
Test Reason : CP Blood Pressure : / mmHG Vent. Rate : 083 BPM Atrial Rate : 083 BPM P-R Int : 146 ms QRS Dur : 078 ms QT Int : 400 ms P-R-T Axes : 057 059 -40 degrees QTc Int : 470 ms Normal sinus rhythm ST & T wave abnormality, consider anterior ischemia Prolonged QT Abnormal ECG When compared with ECG of 29-MAR-2016 14:38, ST now depressed in Lateral leads Inverted T waves have replaced nonspecific T wave abnormality in Inferior leads T wave inversion now evident in Anterior leads QT has lengthened Confirmed by TANA MIRANDA, KALIN ([id number]), supervising film or videotape editor YANA PIERSON ([id number]) on 12/18/2019 1:36:46 PM Referred By: DR LEE Confirmed By:HARSH FAJARDO MD
[2019-12-08] MEDS: Lidocaine 5% Patch 2 PATCH TOPICAL (08:21)
[2019-12-08] MEDS: Aspirin E.C. 81 MG Tablet PO (08:24)
[2019-12-08] MEDS: Acetaminophen 500 MG Tablet 1000 MG PO ×2 (08:24→13:35)
[2019-12-08] MEDS: Folic Acid 1 MG Tablet PO (08:24)
[2019-12-08] MEDS: Calcium Carb/Vitamin D 1 TABLET Tablet PO (08:24)
[2019-12-08] MEDS: Metoprolol Tartrate 50 MG Tablet PO (08:25)
[2019-12-08] MEDS: Lisinopril 20 MG Tablet PO (08:25)
[2019-12-08] MEDS: Tolterodine Tartrate 2 MG CAP.SA PO (08:25)
[2019-12-08] MEDS: amLODIPine 5 MG Tablet PO (08:25)
[2019-12-08] MEDS: Isosorbide Mononitrate 30 MG Tablet PO ×2 (08:25→14:03)
--- NOTE | 2019-12-08 09:24 | PCM.PN.CARD ---
Subjectve: The patient continues to complain of total body discomfort. Objective: Vital Signs Temp Pulse Resp BP Pulse Ox 98.1 F 69 18 160/80 H 95 12/08/19 06:45 12/08/19 08:25 12/08/19 06:45 12/08/19 09:15 12/08/19 08:02 Oxygen Flow Rate (L/min) 1 Oxygen Delivery Method Room Air Weight: 176 lb 12.972 oz Body Mass Index (BMI) 32.3 Intake and Output for Last 24 Hours 12/06/19 12/07/19 12/08/19 23:59 23:59 23:59 Intake Total 3991.87 / 3991.87 2555.00 / 2795.00 678.75 / 678.75 Output Total 1900 / 1900 1750 / 2125 1700 / 1700 Balance 2091.87 / 2091.87 805.00 / 670.00 -1021.25 / -1021.25 General: Awake, Ill Appearing Neck: No JVD Lungs: Clear to auscultation Cardiovascular: Regular Rhythm, Normal S1, Normal S2 Abdomen: Bowel Sounds Present Extremities: No edema Psych/Mental Status: Depressed 12/08/19 05:12: Sodium 133 L, Potassium 4.0, Chloride 103, Carbon Dioxide 23.0, Anion Gap 7, BUN 9, Creatinine 0.47 L, Est GFR (MDRD) Af Amer 163, Est GFR (MDRD) Non-Af 135, BUN/Creatinine Ratio 19.3, Glucose 123 H, Calcium 8.1 L Rhythm: Sinus rhythm Medical Necessity - Tobacco Use Smoking Status: Never smoker Assessment/Plan 1. Non-ST segment elevation [place] The patient demonstrated findings compatible with a non-ST segment elevation [place] based upon her cardiac enzyme changes. Her cardiac enzymes have decreased. She underwent transthoracic echocardiogram with results as noted. Based upon a discussion with her family members present yesterday and subsequent additional information presented by her family members later in the day the consensus was the patient would continue conservative medical management and that she was not a patient to proceed with further invasive evaluation or care. 2. Hypertension ED patient's blood pressure is elevated. This may be secondary to her pain/discomfort. Her medications will be adjusted to try and help bring her blood pressure under better control. 3. GERD The patient reportedly has a history of GERD. She will continue evaluation care by internal medicine. 4. Back pain The patient has a history of chronic back related discomfort and chronic back management related procedures. She now has an L4 compression fracture which may be contributing to her acute back pain. She will continue evaluation care per internal medicine. 5. Rhabdomyolysis The patient did present with an elevated CPK level. This was attributed to rhabdomyolysis secondary the patient lying supine on the floor for period of time.
[2019-12-08] MEDS: oxyCODONE 5 MG Tablet PO (10:43)
--- NOTE | 2019-12-08 13:41 | PCM.DC.SUM ---
<Juanis Sousa - Last Filed: 12/08/19 13:47> Discharge Date and Diagnosis Date of Admission: 12/04/19 Date of Discharge: 12/08/19 - Primary Discharge Diagnosis Acute Problems: Active Problems 1. NSTEMI 2. Intractable back pain with recent compression fracture 3. Abdominal pain, chronic 4. Acute encephalopathy, delirium-currently resolved. 5. Osteoarthritis 6. Hypertension 7. GERD 8. Depression 9. Hospice transition - Secondary Discharge Diagnosis Chronic Problems: Chronic Problems Rheumatoid arthritis (Chronic) Hypertension (Chronic) GERD (gastroesophageal reflux disease) (Chronic) Hospital Course and Treatment Imaging Results: Diagnostic Data Lumbar Spine CT 12/04/19 12:15 IMPRESSION: Heterogeneous appearance of the L3 vertebrae with the loss of height. A metastatic deposit should be ruled out. Electronically Signed: Yayo Mckee, at 12:34 EDT , Service support , Brain CT 12/04/19 22:37 IMPRESSION: Atrophy , evidence of prior bilateral basal ganglia chronic small vessel ischemic change similar to the prior study. No visualized evidence of acute hemorrhage infarct or edema. Electronically Signed: Georgina Pedro MD at 23:49 EDT Tel , Service support , Abdomen/Pelvis CT 12/05/19 09:56 IMPRESSION: No demonstrated acute process. Compression fracture of L3 vertebra suspicious for metastatic disease. Electronically Signed: Dylon Goodman MD at 11:59 EDT Tel , Service support , Chest X-Ray 12/05/19 10:53 IMPRESSION: Trace of bilateral pleural effusions. No active pulmonary disease. Electronically Signed: Dylon Goodman MD at 12:02 EDT Tel , Service support , Dr. Adam- Cardiology Hospice Operations: None Procedures: 2-D Echocardiogram Summary of Care Provided: The patient is a 84 year old F admitted 12/04/2019 due to intractable back pain. 1. NSTEMI-cardiology consulted during admission. Continue aspirin, statin, metoprolol, isosorbide. Echocardiogram demonstrates an EF of 65%, mild mitral valve insufficiency, mild tricuspid valve insufficiency, mild aortic stenosis, RVSP estimated to be 46 mmHg. After further discussion by cardiology with family, plan is for conservative medical management. Patient denies further chest pain. 2. Intractable back pain with recent compression fracture-see imaging. Recent kyphoplasty 11/23. Follows with Dr. Cohen. Hospice transition, continue aggressive pain control. 3. Abdominal pain-unclear etiology. CT of abdomen and pelvis unremarkable. Patient reports extensive history of intermittent abdominal pain. Currently resolved. 4. Acute encephalopathy, delirium-currently resolved. Brain CT unremarkable for acute process. UA and chest x-ray unremarkable. Suspect secondary to narcotic regimen. 5. Osteoarthritis-on methotrexate, leucovorin? Follows with Dr. Pereira. 6. Hypertension, uncontrolled-suspect intermittently elevated due to pain. Continue home lisinopril regimen. Initiated on amlodipine, metoprolol, isosorbide. 7. GERD-continue omeprazole. 8. Depression-continue duloxetine regimen. 9. Hospice transition-patient adamant that she is ready to pass and has 1 foot out the door. Would like to focus on comfort measures. Plan for inpatient hospice unit for pain control and hospice transition. General: Alert, Oriented x3, Cooperative HEENT: Atraumatic, PERRLA, EOMI, Normocephalic Neck: Supple, No JVD, Negative Carotid Bruits Lungs: Clear to auscultation, Normal air movement Cardiovascular: Regular rate, No murmurs Abdomen: Bowel Sounds Present, Soft, Non Tender, Non-Distended Extremities: No clubbing, No cyanosis, No edema, Capillary Refill Less than 3 Seconds Skin: No rashes, No breakdown Musculoskeletal: No Tenderness to Palpation of Joints or Extremities Neurological: Cranial nerves II-XII grossly intact, Neuro grossly intact Psych/Mental Status: Normal Affect, Appropriate Patient seen and examined prior to discharge. Physical assessment as noted above. This patient was seen by GORDY Hicks under the supervision of Dr. Lyles. - Physical Exam Vitals/I&O's: Vital Signs Temp Pulse Resp BP Pulse Ox 97.6 F L 51 L 18 192/75 H 96 12/08/19 12:25 12/08/19 13:37 12/08/19 12:25 12/08/19 13:37 12/08/19 12:25 Oxygen Flow Rate (L/min) 1 Oxygen Delivery Method Room Air Weight: 176 lb 12.972 oz Body Mass Index (BMI) 32.3 Intake and Output for Last 24 Hours 12/06/19 12/07/19 12/08/19 23:59 23:59 23:59 Intake Total 3991.87 / 3991.87 2555.00 / 2795.00 1811.25 / 1811.25 Output Total 1900 / 1900 1750 / 2125 2950 / 2950 Balance 2091.87 / 2091.87 805.00 / 670.00 -1138.75 / -1138.75 Microbiology Past 72 Hours 12/05/19 10:42 Urine Catheter - Catheter Urine Culture - Preliminary Gram positive jesus alberto Laboratory Results 12/08/19 05:12: Sodium 133 L, Potassium 4.0, Chloride 103, Carbon Dioxide 23.0, Anion Gap 7, BUN 9, Creatinine 0.47 L, Estim Creat Clear Calc 32.53, Est GFR (MDRD) Af Amer 163, Est GFR (MDRD) Non-Af 135, BUN/Creatinine Ratio 19.3, Glucose 123 H, Calcium 8.1 L Current Medications Acetaminophen (Tylenol) 1,000 mg PO Q8 [facility] Last Admin: 12/08/19 13:35 Dose: 1,000 mg Documented by: Amlodipine Besylate (Norvasc) 5 mg PO DAILY [facility] Last Admin: 12/08/19 08:25 Dose: 5 mg Documented by: Aspirin (Ecotrin) 81 mg PO DAILY@0800 [facility] Last Admin: 12/08/19 08:24 Dose: 81 mg Documented by: Atorvastatin Calcium (Lipitor) 40 mg PO QHS [facility] Last Admin: 12/07/19 22:04 Dose: 40 mg Documented by: Calcium/Vitamin D (Os-Srinivasa 500mg + D) [facility] Last Admin: 12/08/19 08:24 Dose: 1 tablet Documented by: Enoxaparin Sodium (Lovenox) 40 mg SC DAILY@0600 [facility] Last Admin: 12/08/19 05:01 Dose: 40 mg Documented by: Folic Acid (Folic Acid) 1 mg PO DAILYCM [facility] Last Admin: 12/08/19 08:24 Dose: 1 mg Documented by: Hydralazine HCl (Apresoline Iv) 10 mg IV Q4H PRN PRN PRN Reason: BLOOD PRESSURE Last Admin: 12/08/19 04:47 Dose: 10 mg Documented by: Sodium Chloride () 250 mls @ 15 mls/hr IV .[id number] PRN PRN Reason: Saline Flush Last Infusion: 12/06/19 09:58 Dose: 0 mls/hr Documented by: Sodium Chloride () 250 mls @ 15 mls/hr IV .[id number] PRN PRN Reason: Additional IVPB Infusion Pantoprazole Sodium 40 mg/ (Sodium Chloride) 110 mls @ 330 mls/hr IV Q12 [facility] Last Infusion: 12/08/19 11:00 Dose: Infused Documented by: Potassium Chloride 40 meq/ (Sodium Chloride) 1,020 mls @ 75 mls/hr IV .[id number] [facility] Last Infusion: 12/08/19 13:33 Dose: Infused Documented by: Isosorbide Mononitrate (Imdur) 30 mg PO DAILY [facility] Last Admin: 12/08/19 08:25 Dose: 30 mg Documented by: Lidocaine (Lidoderm Patch) 2 patch TOPICAL DAILY [facility]; Protocol Last Admin: 12/08/19 08:21 Dose: 2 patch Documented by: Lisinopril (Zestril) 20 mg PO BID [facility] Last Admin: 12/08/19 08:25 Dose: 20 mg Documented by: Metoprolol Tartrate (Lopressor (Beta Duran)) 50 mg PO BID [facility] Last Admin: 12/08/19 08:25 Dose: 50 mg Documented by: Ondansetron HCl (Zofran) 4 mg IV Q8H PRN PRN PRN Reason: NAUSEA/VOMITING Last Admin: 12/06/19 07:37 Dose: 4 mg Documented by: Oxycodone HCl (Oxyir) 5 mg PO 4X/DAY PRN PRN PRN Reason: Pain Score 1-10/10 Last Admin: 12/08/19 10:43 Dose: 5 mg Documented by: Sodium Chloride () 10 - 40 ml IV UD PRN PRN Reason: SALINE FLUSH Last Admin: 12/07/19 03:25 Dose: 10 ml Documented by: Tolterodine Tartrate (Detrol La) 2 mg PO DAILY [facility] Last Admin: 12/08/19 08:25 Dose: 2 mg Documented by: Home Medications: Medications to take at Discharge Temazepam [Restoril] 15 mg PO QHS PRN PRN 05/14/13 Methotrexate 15 mg PO TU 03/14/16 leucovorin tablet 15 mg PO WE 03/14/16 traMADol [Ultram] 50 mg PO Q6H PRN PRN 03/14/16 Duloxetine HCl 60 mg PO DAILY 10/31/19 Oxybutynin [Ditropan] 5 mg PO DAILY 10/31/19 Folic Acid 1 mg PO DAILY 12/03/19 Omeprazole 20 mg PO DAILY PRN PRN 12/03/19 Oxycodone HCl/Acetaminophen [Percocet 5-325] 1 tab PO Q6H PRN PRN #10 tab 12/03/19 Calcium Carbonate/Vitamin D3 [Calcium 600-Vit D3 200 Tablet] 1 tab PO DAILY 12/04/19 Denosumab [Prolia] 60 mg IN .[id number] 12/04/19 Lisinopril [Zestril] 20 mg PO BREAKFAST 12/04/19 Amlodipine [Norvasc] 5 mg PO DAILY tab 12/08/19 Aspirin E.C. [Ecotrin] 81 mg PO DAILY@0800 tab 12/08/19 Atorvastatin Calcium [Lipitor] 40 mg PO QHS tab 12/08/19 Isosorbide Mononitrate [Imdur] 30 mg PO DAILY tab 12/08/19 Metoprolol Tartrate [Lopressor (beta duran)] 50 mg PO BID tab 12/08/19 Primary Care Physician: Malu Hernandez DO [Primary Care Provider] - Disposition: Hospice Medical Facility Minutes spent on discharge:: 35 Patient Condition:: Fair Medical Necessity - Tobacco Use Smoking Status: Never smoker Meaningful Use Info Meaningful Use Diagnoses (Choose all that apply): AMI - AMI/Post PCI/Angioplasty Aspirin given w/in 24hrs of arrival?: Yes ASA at discharge?: Yes Statins at discharge?: Yes Hany/ARB at discharge?: Yes Beta Duran at discharge?: Yes Done w/ Acute SD measure.: Yes <Fabby Lyles - Last Filed: 12/08/19 15:27> Discharge Date and Diagnosis - Secondary Discharge Diagnosis Chronic Problems: Chronic Problems Rheumatoid arthritis (Chronic) Hypertension (Chronic) GERD (gastroesophageal reflux disease) (Chronic) Hospital Course and Treatment Summary of Care Provided: This patient was seen in conjunction with Juanis Sousa NP. I have independently interviewed and examined the patient and reviewed pertinent historical, laboratory, and other data. Please refer to her note for patient's presentation, findings, and recommendations. 84-year-old female who was admitted on 12/04/19 with intractable back pain. Patient has a history of acute mild compression fracture of L3 and moderate compression fracture of T12, status post vertebroplasty with focal kyphosis. She had L1 kyphoplasty done on 11/24/19. She had bone biopsies during the procedure, that ruled out malignancy in the L3. Patient was brought in because she is unable to ambulate due to significant pain. CT of the lumbar spine did show new L4 compression fracture. There was no loss of bowel or bladder function. On the night prior to admission, patient complained of severe chest pain, troponins were elevated third, EKG had T wave inversions worsening in V1 to V3. Cardiology was consulted, patient was started on heparin drip and the plan was for a cardiac cath. Patient was also found to be actively hallucinating. Changes were made to her medication. She complained of abdominal and chest pain as well as back pain. Work-up was negative for acute abdomen. She did not have UTI. Patient continued to respond to changes in her medication as well as hydration. Her family, patient would not want aggressive work-up and cardiac cath was canceled. Patient continued to steadily improve. She voiced several times that she was ready to . Denied feeling depressed. She stated that she had seen heaven through a door and was ready to pass on. Discussed the concept of hospice since she did not want any aggressive care, patient agreed to hospice. Patient was admitted to the inpatient hospice facility. It was felt that patient would not be a good candidate for subacute care in the detention facility and inpatient hospice will help with pain control and subsequently if she needed to be discharged to a detention facility versus home with hospice that could also be done. On the day of discharge, patient was seen and examined. She is more alert and oriented today. She voiced to staff and myself that she did not want any aggressive care and she was ready to transition. Physical Exam: Gen: Awake and alert, not pale, not jaundiced, alert oriented x3 CVS:HS I +II, regular, no murmurs RESP: CTA, Diminished at lung bases GI: BS present and normal, soft, generalised tenderness with no palpable organs EXT: Trace bilateral leg edema - Physical Exam Vitals/I&O's: Vital Signs Temp Pulse Resp BP Pulse Ox 97.6 F L 51 L 18 192/75 H 96 12/08/19 12:25 12/08/19 13:37 12/08/19 12:25 12/08/19 13:37 12/08/19 12:25 Oxygen Flow Rate (L/min) 1 Oxygen Delivery Method Room Air Weight: 80.2 kg Body Mass Index (BMI) 32.3 Intake and Output for Last 24 Hours 12/06/19 12/07/19 12/08/19 23:59 23:59 23:59 Intake Total 3991.87 / 3991.87 2555.00 / 2795.00 1811.25 / 1811.25 Output Total 1900 / 1900 1750 / 2125 2950 / 2950 Balance 2091.87 / 2091.87 805.00 / 670.00 -1138.75 / -1138.75 Microbiology Past 72 Hours 12/05/19 10:42 Urine Catheter - Catheter Urine Culture - Preliminary Gram positive jesus alberto Laboratory Results 12/08/19 05:12: Sodium 133 L, Potassium 4.0, Chloride 103, Carbon Dioxide 23.0, Anion Gap 7, BUN 9, Creatinine 0.47 L, Estim Creat Clear Calc 32.53, Est GFR (MDRD) Af Amer 163, Est GFR (MDRD) Non-Af 135, BUN/Creatinine Ratio 19.3, Glucose 123 H, Calcium 8.1 L Inpatient E&M: [id number] Disch Hosp
--- NOTE | 2019-12-08 13:50 | NURSING ---
Report called to Hospice nurse Sachi. Per Sachi, leave IV and mcpherson in at transfer.
[2019-12-08] MEDS: 0.9% Saline Lock 10 ML Syringe IV (14:04)
--- NOTE | 2019-12-08 14:04 | CASEMGMT ---
Patient has now chosen to go to the Inpatient Hospice Unit. SANCHEZ spoke with patient and she would like SW to contact her son regarding Hospcie referral. SANCHEZ faxed referral to Hospice. SANCHEZ called patient's son and let him know that patient has chosen to go to the Inpatient Hospice Unit. SANCHEZ told him they will be calling him today. SANCHEZ then called Hospice with referral. SANCHEZ asked TICKET COUNTER Anne Marie to contact Dr Reddy to get patient approved to go to the Inpatient Unit. Danyelle from Hospice then called SW and said their transport will be over to pick patient up at 230. They spoke with patient's son. SANCHEZ notified RN, alumnae secretary, and patient. SW also let patient know about visitation policy at Hospice. SANCHEZ called patient's son and he is aware patient will be picked up at 230. SANCHEZ also spoke with Carolynn and let her know that patient is now going Hospice. Plan: [facility] Inpatient Unit. Hospice transported patient via their transportation. Iris BATISTA
--- NOTE | 2019-12-08 14:15 | CHAPLAIN ---
Type of Pastoral Visit _x__ Initial Visit ___ Follow-up Visit ___ On-call Visit ___ General Patient Visit ___ Spiritual Assessment ___ Family Conference ___ Bereavement ___ Rapid Response ___ Code Blue ___ Other (describe below) Pastoral Care Referral From _x__ Patient ___ Family _x__ Nurse ___ Physician ___ Title I Assistant ___ [employer] Driver _x - position classification manager of patient called with request for visit - Other (describe below) Sacrament/Intervention _x__ Active listening ___ Anointing ___ Jehovah'S Witness ___ Bereavement ___ Communion _x__ Trixie exploration ___ ___ Life review _x__ Prayer ___ Reconciliation ___ Sacrament of Sick _x__ Supportive presence ___ Wedding ___ Other (describe below) Pastoral Comments patient has chosen to go to hospice and requested spiritual support; position classification manager of patient called to request visit and RN from [facility] called with request from patient for this visit; pt exhibits a strong trixie in God and hope of eternal life; pt has life long membership in local adventism; pt states that she has family in [facility] to see again and that she is tired of a life of pain; pt is at peace; pt receives scripture, presence, and prayer
== END 2019-12-08 14:53 | disposition hospice, inpatient (51) | DRG 542 ==
LOC: ED 12:48 → MS3 14:17 → PCU 12-05 00:02
PROVIDERS: Internal Medicine; Internal Medicine Cardiovascular Disease; Nurse Practitioner Family; Admitting Provider Internal Medicine; Emergency Provider Emergency Medicine; PCP Family Medicine; Visit Provider Internal Medicine
DX: M48.56XA Collapsed vertebra, not elsewhere classified, lumbar region, initial encounter for fracture (principal); I21.4 Non-ST elevation (NSTEMI) myocardial infarction; G93.40 Encephalopathy, unspecified; I10 Essential (primary) hypertension; M19.90 Unspecified osteoarthritis, unspecified site; K21.9 Gastro-esophageal reflux disease without esophagitis; F32.9 Major depressive disorder, single episode, unspecified; M48.56XD Collapsed vertebra, not elsewhere classified, lumbar region, subsequent encounter for fracture with routine healing; M48.54XD Collapsed vertebra, not elsewhere classified, thoracic region, subsequent encounter for fracture with routine healing; M06.9 Rheumatoid arthritis, unspecified; Z66 Do not resuscitate; I08.3 Combined rheumatic disorders of mitral, aortic and tricuspid valves; G89.29 Other chronic pain; Z98.890 Other specified postprocedural states; M47.816 Spondylosis without myelopathy or radiculopathy, lumbar region
CPT/HCPCS: 36415; 70450; 71046; 72100; 72131; 74176; 80048; 80053; 80061; 80076; 81001; 82550; 83605; 83690; 84443; 84484; 85025; 85027; 85610; 85730; 87077; 87086; 87088; 87186; 93005; 93306; 96372; 97162; 97166; 97530; 99284; 99285; J7030; J7050; Q9957; A4216; C8929; J0696; J2405